=== PATIENT | male | born 1965 | race Caucasian/White ===

== ENCOUNTER 2023-10-23 08:35 | Day surgery (SDC) | payer BC, SELFPAY ==
[2023-10-23] VITALS (7 sets, daily range): BP systolic 118–147; BP diastolic 84–96; PULSE 68–80; RESP 18; O2SAT 97–98; BMI 32.5
[2023-10-23] MEDS: LIDOCAINE 1% 30ML PF VIAL 30 ML (09:40)
[2023-10-23] MEDS: FENTANYL 100MCG/2ML VIAL 100 MCG (09:40)
[2023-10-23] MEDS: CLINDAMYCIN PHOSPHATE/D5W 900 MG/50 ML PIGGYBACK 50 MG IV (09:41)
[2023-10-23] MEDS: diphenhydrAMINE 25MG CAPSULE 25 MG PO (09:57)
--- NOTE | 2023-10-23 11:00 | PC.NURSE ---
PT AMBULATED TO BATHROOM. PAIN IS 0.
--- NOTE | 2023-10-23 13:19 | P.PCN_ITS ---
[facility] Procedure Note Date: 10/23/23
--- NOTE | 2023-10-23 13:19 | HMH.PROCNOTE ---
[facility] Procedure Note Date: 10/23/23
--- NOTE | 2023-10-23 13:19 | EXP.PAIN.PRO ---
Procedure Date: 10/23/23 Time: 13:19 Anesthesiologist:: Paulie Dick MD Complications:: None Pre-procedure Diagnosis:: Postlaminectomy syndrome lumbar spine with lumbar radiculopathy symptoms Post-procedure Diagnosis:: Same Indications for Procedure:: This patient is a pleasant 58-year-old white male who we are treating for postlaminectomy syndrome lumbar spine with lumbar radiculopathy symptoms. He has failed all previous conservative treatments including injections, oral medications, physical therapy and is not a candidate for further surgery. He has failed previous surgery with fusion of the L4-L5 vertebral bodies. He has had a successful psychological evaluation. He presents for intrathecal pump trial today. Procedure Details:: Pain pump trial Informed consent was obtained and the risk and benefits of the procedure was explained to the patient. The patient was taken to the procedure room and placed prone on the procedure table. Patient was prepped and draped in sterile fashion. C-arm fluoroscopy was used to view the lumbar spine. The skin and subcutaneous tissues were anesthetized using lidocaine. I placed a 18-gauge spinal needle into the L4-5 interspace and advanced until clear CSF was obtained. After this intrathecal catheter was inserted and advanced very easily to the L1 vertebral body. The needle was withdrawn. We were able to freely withdraw clear CSF through the catheter. We then injected intrathecal opioid single shot bolus of 25 mcg followed by saline and followed by the previous CSF that was withdrawn. The needle and catheter were then removed and a Band-Aid was placed. Patient tolerated the procedure well with no complications. We reevaluated the patient after 30 minutes to 1 hour. He was also reassessed by physical therapy. Patient had 80 to 90% relief in pain symptoms. He was much more ambulatory. He did not have any pain down his legs. He was walking better and standing longer. By all indications this did seem to be a successful intrathecal pump trial. Plan and Disposition:: Will follow-up with him in 2 weeks. Will reevaluate efficacy of this trial. If successful we will plan on permanent placement with intrathecal morphine 1 mg/mL to start at 150 mcg/day. Catheter tip will be at the T8 vertebral body. Catheter entry will be at L2-L3.
== END 2023-10-23 11:00 | disposition home or self-care (01) ==
LOC: SC.PAINP 08:39
PROVIDERS: PCP Nurse Practitioner Family; Visit Provider Anesthesiology
DX: M96.1 Postlaminectomy syndrome, not elsewhere classified (principal); M54.16 Radiculopathy, lumbar region
CPT/HCPCS: 62323

== ENCOUNTER → 2023-11-05 09:50 | Outpatient (POV) | payer BC, SELFPAY ==
--- OUTSIDE RECORDS SUMMARY | 2023-11-05 09:55 | XMS_ITS | Continuity of Care Document ---
Author Name Unknown Organization [facility] Address [address] [place] [address] Phone Care Team Providers Care Construction Mgr Name Role Phone Walter Medeiros MD Unavailable Unavailabl e Allergies, Adverse Reactions, Alerts Substance Reaction Status Criticality meloxicam Active No Information Medications Medication Instructions Dosage Effective Dates (start - stop) Status Comments hydrocodone 5 mg-acetaminophen 325 mg tablet bid prn - Active Take 1 tablet bid. Must last 30 days-Do not fill before 06/07/15 citalopram 20 mg tablet - Active Procedures Procedure Date Njx interlaminar lmbr/sac Methylprednisolone 40 MG inj LOCM 300-399MG/ML IODINE,1ML Inject nerve block,vert sympathetic Methylprednisolone 40 MG inj LOCM 300-399MG/ML IODINE,1ML Inject nerve block,vert sympathetic Methylprednisolone 40 MG inj LOCM 300-399MG/ML IODINE,1ML Office/outpatient visit,est, mod 2018 Inject nerve block,vert sympathetic Methylprednisolone 40 MG inj LOCM 300-399MG/ML IODINE,1ML Inject nerve block,vert sympathetic Methylprednisolone 40 MG inj Inject nerve block,vert sympathetic Methylprednisolone 40 MG inj LOCM 300-399MG/ML IODINE,1ML Inject nerve block,vert sympathetic Methylprednisolone 40 MG inj LOCM 300-399MG/ML IODINE,1ML Office/outpatient visit,est, mod 2016 Inject nerve block,vert sympathetic Methylprednisolone 40 MG inj LOCM 300-399MG/ML IODINE,1ML Office/outpatient visit,est, mod 2016 Inject nerve block,vert sympathetic Methylprednisolone 40 MG inj LOCM 300-399MG/ML IODINE,1ML Office/outpatient visit,est, mod 2016 Inject nerve block,vert sympathetic Methylprednisolone 40 MG inj LOCM 300-399MG/ML IODINE,1ML Office/outpatient visit,est, mod 2015 Inject nerve block,vert sympathetic Methylprednisolone 40 MG inj LOCM 300-399MG/ML IODINE,1ML Office/outpatient visit,est, mod 2015 Inject nerve block,vert sympathetic Methylprednisolone 40 MG inj LOCM 300-399MG/ML IODINE,1ML Office/outpatient visit,est, mod 2015 Inject nerve block,vert sympathetic Methylprednisolone 40 MG inj LOCM 300-399MG/ML IODINE,1ML Inject nerve block,vert sympathetic Methylprednisolone 40 MG inj LOCM 300-399MG/ML IODINE,1ML DRUG SCREEN NON TLC DEVICES Inject nerve block,vert sympathetic Methylprednisolone 40 MG inj LOCM 300-399MG/ML IODINE,1ML Destroy w/neurlytc oth periphrl nrv Methylprednisolone 40 MG inj Inject nerve block,vert sympathetic Methylprednisolone 40 MG inj LOCM 300-399MG/ML IODINE,1ML Office/outpatient visit,est, mod 2013 Inject nerve block,vert sympathetic Methylprednisolone 40 MG inj LOCM 300-399MG/ML IODINE,1ML Office/outpatient visit,est, mod 2012 Advance Directives Directive Yes / No Effective Date File Name No Information Encounters Encounter Description Practice Location Reason(s) For Visit Diagnoses Date Provider Providers Copied on Encounter [facility], [facility] [place], [place], [facility], tel:[phone] [facility] No Information -202 0 Waldemar Walter. [address] [place], [place], [id number], [place]. tel:[phone] [facility], [address] [place] [address], [facility], tel:[phone] [facility] No Information 3 0 Waldemar Walter. [address], [place], [id number], [place]. tel:[phone] [facility], [facility] [place], [facility], [place] tel:[phone] [facility] Complex regional pain syndrome I of right lower limb 4-201 9 Waldemar Walter. [address], [place], [id number], [place]. tel:[phone] [facility], [address] [place] [address], [facility], [place] tel:[phone] [facility] No Information 0 6-201 9 Waldemar Walter. [address] [place], [place], [id number], [place]. tel:[phone] Office/outpa tient visit,est, mod [facility], [facility] [place], [facility], tel:[phone] [facility] No Information 2-201 9 Waldemar Walter. [address], [place], [id number], [place]. tel:[phone] [facility], [facility] [place], [facility], tel:[phone] [facility] No Information 8 Kruer Zay. [address] [place], [address], [place]. tel:[phone] [facility] [place] [address] [place], [place], [facility], [place] tel:[phone] [facility] No Information 8 Kruer Zay. [address] [place], [address], [place]. tel:[phone] [facility] [place] [address] [place], [place], [facility], tel:[phone] [facility] No Information 7 Kruer Zay. [address] [place], [address], [place]. tel:[phone] [facility] [address], [facility], [place] tel:[phone] [facility] No Information 7 Kruer Zay. [address] [place], [address], [place]. tel:[phone] Office/outpa tient visit,est, mod [facility] [address], [facility], [place] tel:[phone] [facility] No Information 7 Kruer Zay. [address] [place], [address], [place]. tel:[phone] [facility] [place] [address] [place], [place], [facility], [place] tel:[phone] [facility] No Information 7 Kruer Zay. [address] [place], [address], [place]. tel:[phone] Office/outpa tient visit,est, mod [facility], [facility] [address] [place], [place], [facility], tel:[phone] [facility] No Information 8-201 7 Kruer Zay. [address] [place], [address], [place]. tel:[phone] [facility], [facility] [place], [facility], tel:[phone] [facility] No Information 6-201 7 Kruer Zay. [address] [place], [address], [place]. tel:[phone] Office/outpa tient visit,est, mod [facility], [facility] [place], [facility], tel:[phone] [facility] No Information 6 7 Kruer Zay. [address] [place], [address], [place]. tel:[phone] [facility], [address] [place] [address], [facility], tel:[phone] [facility] No Information 7-201 6 Kruer Zay. [address] [place], [place], [facility], [place]. tel:[phone] Office/outpa tient visit,est, mod [facility], [facility] [place], [facility], tel:[phone] [facility] No Information 1- 6 Kruer Zay. [address] [place], [address], [place]. tel:[phone] [facility], [facility] [place], [facility], tel:[phone] [facility] No Information 2-201 6 Kruer Zay. [address] [place], [place], [facility], [place]. tel:[phone] Office/outpa tient visit,est, mod [facility], [facility] [place], [facility], tel:[phone] [facility] No Information January-0 2-201 6 Kruer Zay. [address] [place], [place], [facility], . tel:[phone] [facility] [address], [facility], tel:[phone] [facility] No Information 0 1-201 6 Kruer Zay. [address] [place], [place], [facility], . tel:[phone] Office/outpa tient visit,est, mod [facility], [address] [place] [address], [facility], tel:[phone] [facility] Complex regional pain syndrome I of left lower limb 3-201 6 Kruer Zay. [address] [place], [place], [facility], . tel:[phone] [facility], [address] [place] [address], [facility], tel:[phone] [address] [place] [address] No Information 8-201 5 Kruer Zay. [address] [place], [place], [facility], [place]. tel:[phone] [facility], [address] [place] [address], [facility], tel:[phone] [address] [place] [address] No Information Paras-0 8-201 5 Kruer Zay. [address] [place], [place], [facility], [place]. tel:[phone] [facility], [facility] [place], [facility], tel:[phone] 700 [facility] No Information Nov-0 9-201 5 Kruer Zay. [address] [place], [facility], . tel:[phone] [facility] [address], [address] [place] [address] tel:[phone] [facility] No Information Aug-0 9-201 4 Kruer Zay. [address] [place], [facility], . tel:[phone] [facility] [address], [facility], tel:[phone] [facility] No Information 4-201 4 Kruer Zay. [facility] [place] [place], [facility], . tel:[phone] Office/outpa tient visit,est, mod [facility] [address], [facility], tel:[phone] [facility] RSD (chief complaint) No Information Feb-0 2-201 4 Kruer Zay. [facility] [place], [facility], [place]. tel:[phone] Referring Provider: Annabelle Varela, [facility] [place], [place], [facility]. tel:[phone] [facility] [address], [address] [place] [address] tel:[phone] [address] [place] [address] back pain (chief complaint) No Information Nov-0 3-201 4 Kruer Zay. [facility] [place] [place], [facility], [place]. tel:[phone] Office/outpa tient visit,est, mod [facility], [facility], tel:[phone] [address] [place] [address] RFLX SYM DYSTRPH LWR LMB Nov- 7201 3 Kruer Zay. [address] [place], [place] [address], [facility], . tel:[phone] Family History Family Member Type Diagnosis Age At Onset Problem (finding) Family history of Diabe cass mellitus Problem (finding) Family history of Cance r Problem (finding) Family history of epile psy Problem (finding) Family history of Thyro id disorder Problem (finding) Family history of hyper tension Payers Payer name Insurance type Covered alliance party ID Authoriza tion(s) No Information Social History Type Description Quantity Date Captured Comments Sex Male Smoking Status No Information Chief Complaint And Reason For Visit No Information Reason For Referral Reason For Referral No Information History Of Present Illness Encounter Date Complaint History Of Prese nt Illness No Information Functional Status Date Functional Assessmen t No Information Instructions Date Instruction Additional Infor mation No Information Assessments Type Assessment Date No Information Patient Care Teams Name Effective Dates (start - stop) Status Members No Information
--- NOTE | 2023-11-05 10:28 | EXP.PAIN.SOA ---
[facility] Pain Management SOAP Note Subjective:: Patient is a pleasant 58-year-old male who presents today for follow-up of his intrathecal pain pump trial on 10/23/2023. We are currently treating the patient for degenerative disc disease of lumbar spine with lumbar radiculopathy symptoms, lumbar postlaminectomy syndrome. Today he rates his pain a 8 out of 10. Patient denies any new trauma or injury. He does state that he had 90 to 100% relief following the pump trial lasting upwards of 7 hours. He states during that time he was able to increase his activity with decreased pain symptoms and felt overall more functional. He states that the pump Even helped with his knee pain and neuropathy symptoms into his feet. Patient states that he has not felt that good in years and he did feel like he had better quality of life. Patient would like to proceed forward with the intrathecal implant. Patient has tried and failed conservative therapy such as oral medication, heat and ice, topicals, physical therapy, current chiropractor therapy. Patient is currently managed with tramadol 50 mg 6 times a day and gabapentin 600 mg 3 times a day from outside providers. His Jesus has been reviewed and is appropriate. Review of Systems: General: No recent weight changes, no fever, no sleep disturbances Respiratory: No cough, no shortness of air, no recurring pulmonary infections Cardiovascular/peripheral vascular: No chest pain, no palpitations, no edema, no shortness of breath Gastrointestinal: No new onset incontinence, normal bowel movements reported Genitourinary: No new onset incontinence Musculoskeletal: Low back pain Psychiatric: [Normal mood/affect] Neurological: [Denies weakness in extremities], [denies balance issues] Objective:: Physical Exam: General: Alert and oriented x3, no acute distress, pleasant and cooperative Lungs: Respirations even and unlabored, symmetrical chest expansion Eyes: PERRL Musculoskeletal: Flexion and extension of lumbar [spine] somewhat guarded secondary to pain, [antalgic gait noted] Neurological: Speech clear, no gross sensory deficit Assessment:: Degenerative disc disease of lumbar spine with lumbar radiculopathy symptoms, lumbar postlaminectomy, chronic pain syndrome Plan:: Patient had a very successful intrathecal pain pump trial with 90 to 100% relief. I have discussed with the patient the risk and benefits of the intrathecal pump implant procedure and he would like to proceed forward with this plan of care. Patient is not on any blood thinners. Patient has tried and failed conservative therapy. Patient will be scheduled for the intrathecal pain pump implant and will be given specific date and time once we have official insurance approval. Patient has been instructed to contact the clinic with any concerns before the next appointment. Dr. Dick has reviewed this note and agrees with this plan of care. This note was dictated using voice recognition software and make contain errors or omissions. [facility] Disclaimer: The information contained in this section may have been updated after the patient was seen, as this information can be updated by other users. Medical History Aneurysmal dilatation Anxiety CHF (congestive heart failure) Depression GERD (gastroesophageal reflux disease) History of left heart catheterization History of varicose veins HLD (hyperlipidemia) HTN (hypertension) Kidney stones Osteoarthritis Pulmonary nodule Surgical History H/O lithotripsy H/O shoulder surgery H/O vasectomy History of bilateral knee replacement History of lumbar spinal fusion Hx of cholecystectomy Family History Father Family history of cancer Other Diabetes Hypertension Social History (Updated 10/23/23 @ 09:16 by Lacy Raphael RN) Smoking Status: Former smoker alcohol intake: never current occupational status: other Travel in the last 8 weeks: None
[2023-11-05 12:29] VITALS: BP 166/94; PULSE 85; RESP 18; O2SAT 98; BMI 32.5
== END ==
LOC: SC.PAIN 09:52
PROVIDERS: PCP Nurse Practitioner Family; Visit Provider Nurse Practitioner Family
DX: M51.16 Intervertebral disc disorders with radiculopathy, lumbar region (principal); M96.1 Postlaminectomy syndrome, not elsewhere classified; G89.4 Chronic pain syndrome
CPT/HCPCS: 99212; G0463

== ENCOUNTER 2023-11-20 07:44 | Day surgery (SDC) | payer BC, SELFPAY ==
[2023-11-17 13:35] VITALS: BMI 31.8
[2023-11-20 08:06] VITALS: BP 117/68; PULSE 86; RESP 18; TEMP 36.2; O2SAT 97
[2023-11-20] MEDS: LACTATED RINGERS 1000ML 1,000 ML 25 ML IV (08:13)
[2023-11-20 08:23] LABS: Basophils # 0.1 K/mm3 (0-0.2); Basophils % 1.1 % (0.1-2.0); Eosinophils # 0.3 K/mm3 (0.0-0.4); Hematocrit 42.4 % (42.0-52.0); Hemoglobin 14.1 g/dL (14.1-18.0); Lymphocytes # 2.4 K/mm3 (0.7-4.5); Mean Corpuscular HGB Conc 33.3 g/dL (31.8-35.4); Mean Corpuscular Hemoglobin 30.5 pg (27.0-31.2); Mean Corpuscular Volume 91.7 fl (80-94); Mean Platelet Volume 8.1 fl (7.4-10.4); Monocytes # 0.7 K/mm3 (0.1-1.0); Monocytes % 8.3 % (1.7-9.3); Neutrophils # 5.2 K/mm3 (1.8-7.8); Neutrophils % 59.5 % (37.0-80.0); Platelet Count 254 K/mm3 (142-424); Red Blood Count 4.62 M/mm3 (4.60-6.20); Red Cell Distribution Width 13.9 % (11.5-17.5); White Blood Count 8.7 K/mm3 (4.8-10.8)
[2023-11-20 08:27] LABS: Anion Gap 15.2 mEq/L (5-15); Blood Urea Nitrogen 25 mg/dl (9-20); Calcium 9.4 mg/dl (8.4-10.2); Carbon Dioxide 21 mmol/L (22.0-30.0); Chloride 108 mmol/L (98-107); Creatinine Clearance Estimated 102 mL/min (50-200); Estimated Glomerular Filt Rate 62 ml/min (>60); GFR (African American) 76 ML/MIN (>60); Glucose 115 mg/dl (74-100); Potassium 4.2 mmoL/L (3.5-5.1); Sodium 140 mmol/L (136-145)
[2023-11-20 09:16] LABS: Barbiturates Screen,Urine Negative ng/ml (<200)
[2023-11-20 09:17] LABS: Amphetamine/Metha Screen,Urine Negative ng/ml (<1000); Benzodiazepines Screen,Urine Negative ng/ml (<200)
[2023-11-20 09:18] LABS: Methadone Screen,Urine Negative ng/ml (<300)
[2023-11-20 09:19] LABS: Cannabinoid Screen,Urine Negative ng/ml (<50); Cocaine Screen,Urine Negative ng/ml (<300)
[2023-11-20 09:20] LABS: Opiate Screen,Urine Negative ng/ml (<300)
[2023-11-20 09:21] LABS: Phencyclidine Screen,Urine Negative ng/ml (<25)
[2023-11-20] MEDS: VANCOMYCIN HCL 2,250 MG in 0.9 % SODIUM CHLORIDE 250 ML 125 MG IV (09:27)
--- NOTE | 2023-11-20 09:49 | EXP.ANES.CKL ---
[facility] Disclaimer: The information contained in this section may have been updated after the patient was seen, as this information can be updated by other users. Medical History History of varicose veins History of left heart catheterization Pulmonary nodule Aneurysmal dilatation Kidney stones Anxiety HLD (hyperlipidemia) GERD (gastroesophageal reflux disease) Depression CHF (congestive heart failure) Osteoarthritis HTN (hypertension) Surgical History H/O vasectomy H/O shoulder surgery H/O lithotripsy Hx of cholecystectomy History of bilateral knee replacement History of lumbar spinal fusion Family History Father Family history of cancer Other Diabetes Hypertension Social History Smoking Status: Former smoker alcohol intake: never substance use type: denies use current occupational status: employed Travel in the last 8 weeks: None [facility] Anesthesia Checklist Patient Identification Patient Identification: Arm Band, Family and Verbal (Name & ) Structural Data Admitted From: Home Planned Operative Procedure/s: Pain pump placement Consent for Planned Operative Procedure(s) Verified: Yes Verified Documents: Surgical Consent and History and Physical NPO Status Verified Time NPO: 00:15 Chart Verification Results Verified: CBC and BMP Additional verifications Patient : No Anesthesia Reactions: Yes (n/v) Hx Blood Transfusions: No Blood Transfusion Reaction: No Cardiovascular Assessment Heart Sounds: S1 & S2 Pulse Rhythm: Irregular Peripheral Edema: No Airway Assessment Mallampati Score:: Class III (Very small mouth opening) C-Spine Mobility Assessed: Yes (FROM) TMJ Mobility Assessed: Yes Dentition: Good Dentition (Nothing loose per pt.) Neurological Assessment Level of Consciousness: Awake, Alert, Appropriate and Follows Commands Hx Seizures: No Numbness or tingling in extremities: Yes (BART LE) Anesthesia Plan Anesthesia Risk discussed: Yes Anesthesia Plan: Verified ASA Class: III Anesthesia Type: MAC
[2023-11-20] MEDS: SODIUM CHLORIDE 0.9% 20ML VIAL 20 ML IV (11:39)
[2023-11-20] MEDS: LIDOCAINE 1% W/EPI 1:100,000 20ML VIAL 40 ML (11:39)
[2023-11-20] MEDS: GENTAMICIN 80 MG/2 ML VIAL (11:39)
[2023-11-20 12:15] VITALS: BP 123/70; PULSE 70; RESP 18; TEMP 36.4; O2SAT 97
[2023-11-20 12:23] VITALS: BP 123/60; PULSE 78; RESP 16; TEMP 36.4; O2SAT 97
--- NOTE | 2023-11-20 12:23 | P.PNANES_ITS ---
[facility] Anesthesia Record Part I Anesthesia Record I Intake, IV Amount: 900 Hydration: Adequate Estimated blood loss (mL): 25 Urine output (mL): 0 Blood Products used (#): none Blood Pressure: 123/60 SaO2: 97 Pulse Rate: 78 Airway Patency: Patent Respiratory Rate: 16 Temperature: 97.5 F Patient is:: Awake and Stable Stable to PACU at:: 12:20
[2023-11-20 12:25] VITALS: BP 110/71; PULSE 75; RESP 18; O2SAT 98
[2023-11-20 12:35] VITALS: BP 134/71; PULSE 76; RESP 18; O2SAT 97
[2023-11-20 12:45] VITALS: BP 132/70; PULSE 72; RESP 16; O2SAT 97
--- NOTE | 2023-11-20 13:17 | P.OP_ITS ---
Date of procedure: 11/20/23 Pre-op Diagnosis:: Postlaminectomy syndrome lumbar spine with lumbar radiculopathy symptoms Post-op Diagnosis:: Same Procedure performed:: Permanent placement intrathecal pain pump with tunneled intrathecal catheter and pain pump generator placement Surgeon:: Paulie Dick MD INFORMATION TECHNOLOGY ADMINISTRATOR:: Other Anesthesia: MAC Estimated blood loss (mL): 5 Clinical Note:: Patient is a pleasant 58-year-old white male who we have been treating for low back pain with lumbar radicular symptoms. He has failed all previous conservative treatments including injections, oral medications, physical therapy, previous surgery and he is not a candidate for any further surgery. He had a successful psychological evaluation and a successful intrathecal pump trial. He presents for permanent placement of his intrathecal pain pump today. Operative findings:: None Operative note:: Informed consent was obtained risk and benefits of the procedure were explained to the patient. Patient was taken the operating room placed prone on the procedure table. He was prepped and draped in sterile fashion. C-arm fluoroscopy was used to view the right flank. [place] between the 12th rib and iliac crest the skin and subcutaneous tissues were anesthetized using lidocaine. I made incision dissected out the pump pocket. C-arm fluoroscopy was then used to view the lumbar spine at L4-5 and L5-S1. The skin and subcutaneous tissues adjacent to L4-5 and L5-S1 were anesthetized using lidocaine. I made an incision dissected down to the lumbar paraspinous fascia. A 17-gauge spinal needle was inserted and advanced into the L4-5 interspace until clear CSF was obtained. After this intrathecal catheter was inserted and advanced very easily to the T8 vertebral body. Catheter was in good position it was midline and posterior. The stylette of the catheter and the needle withdrawn. The catheter was secured to the fascia with anchor device and 2-0 Prolene. I filled the pump with 20 mL of intrathecal morphine 1 mg/mL. I tunneled the catheter from the back to the pump pocket and attached catheter to the pump. We are able to freely withdraw clear CSF through the sideport. The pump was then placed in the pocket. Both incisions were then closed with 2-0 Vicryl followed by 4-0 nylon and subcutaneous mendez. Patient was placed in an abdominal binder taken recovery in stable condition. The patient tolerated the procedure well with no complications. Pump was interrogated and started at 0.1 mg/day of intrathecal morphine. Patient was discharged home neurologic intact with good relief of pain symptoms. Plan and disposition: We will follow-up with this patient in 1 week for reprogramming and wound check. Will follow-up in 2 to 3 weeks for suture removal. Condition: stable Disposition: PACU Complications:: None
== END 2023-11-20 13:00 | disposition home or self-care (01) ==
PROVIDERS: PCP Nurse Practitioner Family; Visit Provider Anesthesiology
PROC: (CPT 62350; principal; 2023-11-20 09:30)
DX: M96.1 Postlaminectomy syndrome, not elsewhere classified (principal); M54.16 Radiculopathy, lumbar region
CPT/HCPCS: 62350; 62362; 80048; 80307; 85025; 96374; C1755; C1772; J3370

== ENCOUNTER 2023-11-26 13:55 | Outpatient (POV) | payer BC, SELFPAY ==
--- NOTE | 2023-11-26 14:27 | EXP.PAIN.SOA ---
[facility] Pain Management SOAP Note Subjective:: Patient is a pleasant 58-year-old male who presents today for 1 week postop of intrathecal pain pump placement on 11/20/2023. Patient rates his pain today 0 out of 10. He denies any problems following this procedure and states that he is doing great and has had significant improvement with minimal pain. He states he has been walking over a mile daily and is very pleased with how this is done. Patient is currently managed with morphine 1 mg/mL with a daily dose of 0.1 mg/day. He denies any Side effects from this medication. His Jesus has been reviewed and is appropriate. Review of Systems: General: No recent weight changes, no fever, no sleep disturbances Respiratory: No cough, no shortness of air, no recurring pulmonary infections Cardiovascular/peripheral vascular: No chest pain, no palpitations, no edema, no shortness of breath Gastrointestinal: No new onset incontinence, normal bowel movements reported Genitourinary: No new onset incontinence Musculoskeletal: Low back pain Psychiatric: [Normal mood/affect] Neurological: [Denies weakness in extremities], [denies balance issues] Objective:: Physical Exam: General: Alert and oriented x3, no acute distress, pleasant and cooperative Lungs: Respirations even and unlabored, symmetrical chest expansion Eyes: PERRL Musculoskeletal: Flexion and extension of lumbar [spine] somewhat guarded secondary to pain Neurological: Speech clear, no gross sensory deficit Skin: Incision sites clean, dry, well-approximated with sutures intact and minimal erythema noted Assessment:: Degenerative disc disease of lumbar spine with lumbar radiculopathy symptoms, lumbar postlaminectomy syndrome Plan:: Patient is doing well and does not require any additional adjustment at this visit. His incision is clean, dry, well-approximated with minimal erythema noted. I have counseled the patient that we will plan on having him back next week to remove his sutures. Patient has been counseled to continue his postop restrictions for full 6 weeks. Patient will return to clinic in 1 week for reevaluation of symptoms and plan of care. Patient has been instructed to contact the clinic with any concerns before the next appointment. Dr. Dick has reviewed this note and agrees with this plan of care. This note was dictated using voice recognition software and make contain errors or omissions. -- It Is medically necessary for this patient to continue to have their intrathecal pump refilled at regular intervals. This patient had an intrathecal pain pump implanted after meeting criteria of chronic intractable pain for greater than 3 months and failing conservative treatments. Patient has committed and been compliant to the treatment plan and all planned follow up care. Since implantation of the intrathecal pain pump, the patient has had decreased pain and been more functional. Oral medications have been reduced including intake of oral opioids. Patient continues to do well with intrathecal therapy with decrease in pain symptoms and increase in functional status. Stopping intrathecal medications can lead to life threatening withdrawal, seizures, cardiac arrest, severe pain, and possible . Pumps that are not refilled at regular intervals can be damages and cause and need for replacement. We continually titrate dose and concentration to optimize pain relief and function. We are limited in concentration for certain drugs to safely deliver medications through the pump and stay within the recommendations from the Polyanalgesic Consensus Committee Guidelines. Depending on dose and concentration these pumps may need to be refilled sooner than 3 months as we titrate. [facility] Disclaimer: The information contained in this section may have been updated after the patient was seen, as this information can be updated by other users. Medical History History of varicose veins History of left heart catheterization Pulmonary nodule Aneurysmal dilatation Kidney stones Anxiety HLD (hyperlipidemia) GERD (gastroesophageal reflux disease) Depression CHF (congestive heart failure) Osteoarthritis HTN (hypertension) Surgical History H/O vasectomy H/O shoulder surgery H/O lithotripsy Hx of cholecystectomy History of bilateral knee replacement History of lumbar spinal fusion Family History Father Family history of cancer Other Diabetes Hypertension Social History (Updated 11/20/23 @ 09:51 by Jesica Browne CRNA) Smoking Status: Former smoker alcohol intake: never substance use type: denies use current occupational status: other Travel in the last 8 weeks: None
[2023-11-26 14:28] VITALS: BP 139/90; PULSE 75; RESP 20; O2SAT 99; BMI 32.5
== END 2023-11-26 23:59 ==
LOC: SC.PAIN 13:56
PROVIDERS: PCP Nurse Practitioner Family; Visit Provider Nurse Practitioner Family
DX: M51.16 Intervertebral disc disorders with radiculopathy, lumbar region (principal); M96.1 Postlaminectomy syndrome, not elsewhere classified; Z97.8 Presence of other specified devices
CPT/HCPCS: 99212; G0463

== ENCOUNTER 2023-11-27 10:39 | Outpatient (POV) | payer BC, SELFPAY ==
--- NOTE | 2023-11-27 11:10 | EXP.PAIN.PRO ---
Procedure Date: 11/27/23 Time: 11:10 Anesthesiologist:: Laura Bishop APRN Complications:: None Pre-procedure Diagnosis:: Degenerative disc disease of lumbar spine with lumbar radiculopathy symptoms, lumbar postlaminectomy syndrome Post-procedure Diagnosis:: Same Indications for Procedure:: Patient is a pleasant 58-year-old male who presents today for increasing pain. Patient was just seen in our office yesterday and was doing great with a 0 out of 10 pain however today he states is a 10 out of 10. Patient states following her visit yesterday fully did was go home and take a nap in his recliner. He states that he woke up having severe pain all over including his low back and legs and upper body including his shoulders. He states that he thought today may be a little bit better however he woke up and the pain was still there. He is currently managed with morphine 1 mg/mL with a daily dose of 0.1 mg/day. Patient does state he feels like he has noticed increased difficulty to urinate. Patient states that he can still go but what would normally take 30 seconds to initiate and get going takes more like a minute. Patient does state in the past he has been prescribed Flomax for urinary and kidney stone issues. He states he did take 1 tablet 1 day however did not notice improvement. He is requesting an increase in his pump due to his increased pain. His Jesus has been reviewed and is appropriate. Physical Exam: General: Alert and oriented x3, no acute distress, pleasant and cooperative Lungs: Respirations even and unlabored, symmetrical chest expansion Eyes: PERRL Musculoskeletal: Flexion and extension of lumbar [spine] somewhat guarded secondary to pain, [antalgic gait noted] Neurological: Speech clear, no gross sensory deficit Skin: Incision sites clean, dry, well-approximated with minimal erythema noted sutures intact Procedure Details:: Informed consent was obtained and the risk and benefits of the procedure were explained to the patient. Patient was taken to the procedure room where noninvasive monitoring was placed including noninvasive blood pressure cuff and pulse oximeter. Patient's pump was interrogated and was reprogrammed to morphine 0.1151 mg/day. The patient tolerated the procedure well with no complications. Plan and Disposition:: I have reviewed over with the patient his urinary retention issues. I have counseled the patient to increase his fluid intake and to immediately call our office or come to be evaluated by ER if he gets to where he cannot urinate at all. We will send in a 1 week dose of Flomax 0.4 mg daily. Patient does already have a follow-up scheduled for next . I have counseled the patient to pay attention to whether or not if his symptoms worsen between now and next week or if there is no change. We will continue to monitor his symptoms. Patient will return to clinic in 1 week for reevaluation of symptoms and plan of care. Patient has been instructed to contact the clinic with any concerns before the next appointment. Dr. Dick has reviewed this note and agrees with this plan of care. This note was dictated using voice recognition software and make contain errors or omissions. -- It Is medically necessary for this patient to continue to have their intrathecal pump refilled at regular intervals. This patient had an intrathecal pain pump implanted after meeting criteria of chronic intractable pain for greater than 3 months and failing conservative treatments. Patient has committed and been compliant to the treatment plan and all planned follow up care. Since implantation of the intrathecal pain pump, the patient has had decreased pain and been more functional. Oral medications have been reduced including intake of oral opioids. Patient continues to do well with intrathecal therapy with decrease in pain symptoms and increase in functional status. Stopping intrathecal medications can lead to life threatening withdrawal, seizures, cardiac arrest, severe pain, and possible . Pumps that are not refilled at regular intervals can be damages and cause and need for replacement. We continually titrate dose and concentration to optimize pain relief and function. We are limited in concentration for certain drugs to safely deliver medications through the pump and stay within the recommendations from the Polyanalgesic Consensus Committee Guidelines. Depending on dose and concentration these pumps may need to be refilled sooner than 3 months as we titrate.
[2023-11-27 11:36] VITALS: BP 133/77; PULSE 97; RESP 18; O2SAT 97; BMI 32.2
== END 2023-11-27 23:59 | disposition home or self-care (01) ==
PROVIDERS: PCP Nurse Practitioner Family; Visit Provider Nurse Practitioner Family
DX: M51.16 Intervertebral disc disorders with radiculopathy, lumbar region (principal); M96.1 Postlaminectomy syndrome, not elsewhere classified; Z97.8 Presence of other specified devices; Z45.1 Encounter for adjustment and management of infusion pump
CPT/HCPCS: 62368; 99213; G0463

== ENCOUNTER 2023-12-03 08:53 | Outpatient (POV) | payer BC, SELFPAY ==
--- NOTE | 2023-12-03 09:18 | EXP.PAIN.PRO ---
Procedure Date: 12/03/23 Time: 09:19 Anesthesiologist:: Laura Bishop APRN Complications:: None Pre-procedure Diagnosis:: Degenerative disc disease of the lumbar spine with lumbar radiculopathy symptoms Post-procedure Diagnosis:: Same Indications for Procedure:: Patient is a pleasant 58-year-old male who presents today for suture removal and intrathecal adjustment and reprogram. Patient denies any new problems from his surgery date. He does state that his sutures are very bothersome causing severe itching. He does state from our last visit that he did notice some improvement when we increased his pump however he still having some overall increased pain. He states he did go and walk around [facility] and could not really do a whole lot due to the worsening pain. He is currently managed with morphine 1 mg/mL with a daily dose of 0.1151 mg/day. He denies any side effects from this medication. His Jesus has been reviewed and is appropriate. Physical Exam: General: Alert and oriented x3, no acute distress, pleasant and cooperative Lungs: Respirations even and unlabored, symmetrical chest expansion Eyes: PERRL Musculoskeletal: Flexion and extension of lumbar [spine] somewhat guarded secondary to pain, [antalgic gait noted] Neurological: Speech clear, no gross sensory deficit Skin: Incision sites are clean, dry, well-approximated with minimal erythema noted and sutures intact Procedure Details:: Informed consent was obtained and the risk and benefits of the procedure were explained to the patient. Patient was taken to the procedure room where noninvasive monitoring was placed including noninvasive blood pressure cuff and pulse oximeter. Patient's pump was interrogated and was reprogrammed to morphine 0.1264mg/day. The patient tolerated the procedure well with no complications. Plan and Disposition:: Patient did have all of his sutures removed during today's visit. He has been counseled to continue his full 6-week postop restrictions. Patient tolerated his intrathecal increase with no complications and was discharged neurologically intact. Patient was also set up with his PTM device for his boluses that he was given up to 4 in a 24-hour. Patient will return to clinic in 2 weeks for reevaluation of symptoms and plan of care. Patient has been instructed to contact the clinic with any concerns before the next appointment. Dr. Dick has reviewed this note and agrees with this plan of care. This note was dictated using voice recognition software and make contain errors or omissions. -- It Is medically necessary for this patient to continue to have their intrathecal pump refilled at regular intervals. This patient had an intrathecal pain pump implanted after meeting criteria of chronic intractable pain for greater than 3 months and failing conservative treatments. Patient has committed and been compliant to the treatment plan and all planned follow up care. Since implantation of the intrathecal pain pump, the patient has had decreased pain and been more functional. Oral medications have been reduced including intake of oral opioids. Patient continues to do well with intrathecal therapy with decrease in pain symptoms and increase in functional status. Stopping intrathecal medications can lead to life threatening withdrawal, seizures, cardiac arrest, severe pain, and possible . Pumps that are not refilled at regular intervals can be damages and cause and need for replacement. We continually titrate dose and concentration to optimize pain relief and function. We are limited in concentration for certain drugs to safely deliver medications through the pump and stay within the recommendations from the Polyanalgesic Consensus Committee Guidelines. Depending on dose and concentration these pumps may need to be refilled sooner than 3 months as we titrate.
[2023-12-03 14:34] VITALS: BMI 32.2
== END 2023-12-03 23:59 | disposition home or self-care (01) ==
PROVIDERS: PCP Nurse Practitioner Family; Visit Provider Nurse Practitioner Family
DX: M51.16 Intervertebral disc disorders with radiculopathy, lumbar region (principal); Z97.8 Presence of other specified devices; Z45.1 Encounter for adjustment and management of infusion pump
CPT/HCPCS: 62368; 99213; G0463

== ENCOUNTER 2023-12-16 09:05 | Outpatient (POV) | payer BC, SELFPAY ==
[2023-12-16 09:44] VITALS: BP 128/82; PULSE 82; RESP 18; O2SAT 96; BMI 32.5
--- NOTE | 2023-12-16 09:48 | EXP.PAIN.PRO ---
Procedure Date: 12/16/23 Time: 09:48 Anesthesiologist:: Laura Bishop APRN Complications:: None Pre-procedure Diagnosis:: Degenerative disc disease of lumbar spine with lumbar radiculopathy symptoms Post-procedure Diagnosis:: Same Indications for Procedure:: Patient is a pleasant 58-year-old male who presents for intrathecal adjustment and reprogram. He does state from our last intrathecal increase that he did notice some improvement. He states that he still will have some days that are more painful than others. Patient is currently managed with morphine 1 mg/mL with a daily dose of 0.1264 mg/day. He denies any side effects from this medication. His Jesus has been reviewed and is appropriate. Physical Exam: General: Alert and oriented x3, no acute distress, pleasant and cooperative Lungs: Respirations even and unlabored, symmetrical chest expansion Eyes: PERRL Musculoskeletal: Flexion and extension of lumbar [spine] somewhat guarded secondary to pain, [antalgic gait noted] Neurological: Speech clear, no gross sensory deficit Procedure Details:: Informed consent was obtained and the risk and benefits of the procedure were explained to the patient. Patient was taken to the procedure room where noninvasive monitoring was placed including noninvasive blood pressure cuff and pulse oximeter. Patient's pump was interrogated and was reprogrammed to morphine 0.1391 mg/day. The patient tolerated the procedure well with no complications. Plan and Disposition:: Patient tolerated his intrathecal increase with no complications and was discharged neurologically intact. Patient will return to clinic in 2 weeks for possible additional intrathecal adjustment and reprogram. Patient has been instructed to contact the clinic with any concerns before the next appointment. Dr. Dick has reviewed this note and agrees with this plan of care. This note was dictated using voice recognition software and make contain errors or omissions. -- It Is medically necessary for this patient to continue to have their intrathecal pump refilled at regular intervals. This patient had an intrathecal pain pump implanted after meeting criteria of chronic intractable pain for greater than 3 months and failing conservative treatments. Patient has committed and been compliant to the treatment plan and all planned follow up care. Since implantation of the intrathecal pain pump, the patient has had decreased pain and been more functional. Oral medications have been reduced including intake of oral opioids. Patient continues to do well with intrathecal therapy with decrease in pain symptoms and increase in functional status. Stopping intrathecal medications can lead to life threatening withdrawal, seizures, cardiac arrest, severe pain, and possible . Pumps that are not refilled at regular intervals can be damages and cause and need for replacement. We continually titrate dose and concentration to optimize pain relief and function. We are limited in concentration for certain drugs to safely deliver medications through the pump and stay within the recommendations from the Polyanalgesic Consensus Committee Guidelines. Depending on dose and concentration these pumps may need to be refilled sooner than 3 months as we titrate.
== END 2023-12-16 23:59 | disposition home or self-care (01) ==
PROVIDERS: Visit Provider Nurse Practitioner Family
DX: M51.16 Intervertebral disc disorders with radiculopathy, lumbar region (principal); Z97.8 Presence of other specified devices; Z45.1 Encounter for adjustment and management of infusion pump
CPT/HCPCS: 62368; 99213; G0463

== ENCOUNTER 2023-12-30 09:14 | Outpatient (POV) | payer BC, SELFPAY ==
[2023-12-30 09:19] VITALS: BP 137/82; PULSE 79; RESP 18; O2SAT 97; BMI 33.2
--- NOTE | 2023-12-30 09:54 | EXP.PAIN.PRO ---
Procedure Date: 12/30/23 Time: 09:54 Anesthesiologist:: Laura Bishop APRN Complications:: None Pre-procedure Diagnosis:: Degenerative disc disease of lumbar spine with lumbar radiculopathy symptoms Post-procedure Diagnosis:: Same Indications for Procedure:: Patient is a pleasant 58-year-old who presents today for intrathecal adjustment and reprogram. He is currently managed with morphine 1 mg/mL with a daily dose of 0.1 3 9 1 mg/day. He denies any side effects from this medication. He does state that he has been increasing his activity and he is planning on going back to work however he would like an increase in his overall pump settings. He is prescribed gabapentin from an outside provider. His Jesus has been reviewed and is appropriate. Physical Exam: General: Alert and oriented x3, no acute distress, pleasant and cooperative Lungs: Respirations even and unlabored, symmetrical chest expansion Eyes: PERRL Musculoskeletal: Flexion and extension of lumbar [spine] somewhat guarded secondary to pain, [antalgic gait noted] Neurological: Speech clear, no gross sensory deficit Procedure Details:: Informed consent was obtained and the risk and benefits of the procedure were explained to the patient. Patient was taken to the procedure room where noninvasive monitoring was placed including noninvasive blood pressure cuff and pulse oximeter. Patient's pump was interrogated and was reprogrammed to morphine 0.1668 mg/day. The patient tolerated the procedure well with no complications. Plan and Disposition:: Patient tolerated his intrathecal increase with no complications and was discharged neurologically intact. Patient was told that he can return to work. I have counseled the patient that if he has any problems between now and his next visit to contact our office. Patient will return to clinic in 2 weeks for possible readjustment and reprogram. We did increase his boluses to 6/day. Patient has been instructed to contact the clinic with any concerns before the next appointment. Dr. Dick has reviewed this note and agrees with this plan of care. This note was dictated using voice recognition software and make contain errors or omissions. -- It Is medically necessary for this patient to continue to have their intrathecal pump refilled at regular intervals. This patient had an intrathecal pain pump implanted after meeting criteria of chronic intractable pain for greater than 3 months and failing conservative treatments. Patient has committed and been compliant to the treatment plan and all planned follow up care. Since implantation of the intrathecal pain pump, the patient has had decreased pain and been more functional. Oral medications have been reduced including intake of oral opioids. Patient continues to do well with intrathecal therapy with decrease in pain symptoms and increase in functional status. Stopping intrathecal medications can lead to life threatening withdrawal, seizures, cardiac arrest, severe pain, and possible . Pumps that are not refilled at regular intervals can be damages and cause and need for replacement. We continually titrate dose and concentration to optimize pain relief and function. We are limited in concentration for certain drugs to safely deliver medications through the pump and stay within the recommendations from the Polyanalgesic Consensus Committee Guidelines. Depending on dose and concentration these pumps may need to be refilled sooner than 3 months as we titrate.
== END 2023-12-30 23:59 | disposition home or self-care (01) ==
PROVIDERS: PCP Nurse Practitioner Family; Visit Provider Nurse Practitioner Family
DX: M51.16 Intervertebral disc disorders with radiculopathy, lumbar region (principal); Z97.8 Presence of other specified devices; Z45.1 Encounter for adjustment and management of infusion pump
CPT/HCPCS: 62368; 99212; 99213; G0463

== ENCOUNTER 2024-01-14 08:10 | Outpatient (POV) | payer BC, SELFPAY ==
[2024-01-14 08:27] VITALS: BP 139/86; PULSE 82; RESP 18; O2SAT 98; BMI 34.5
--- NOTE | 2024-01-14 09:14 | EXP.PAIN.PRO ---
Procedure Date: 01/14/24 Time: 08:49 Anesthesiologist:: Laura Bishop APRN Complications:: None Pre-procedure Diagnosis:: Degenerative disc disease of lumbar spine with lumbar radiculopathy symptoms, lumbar postlaminectomy syndrome Post-procedure Diagnosis:: Same Indications for Procedure:: Patient is a pleasant 58-year-old male who presents today for intrathecal adjustment and reprogram. Today he rates his pain a 7 out of 10. Patient states that since starting back at work that he has been experiencing worsening pain. Patient does also state from our last visit that he did have extensive swelling in his bilateral lower extremities. He felt like he had at least 15 pounds added on. Patient does state in the past he did have issues with swelling and did have old water pills of Lasix. Patient states he did use these and he felt like he did drop back down to normal. Patient is currently managed with morphine 1 mg/mL with a daily dose of 0.1668 mg/h. Patient is unsure whether or not the swelling has anything to do with the pump or not. His Jesus has been reviewed and is appropriate. Physical Exam: General: Alert and oriented x3, no acute distress, pleasant and cooperative Lungs: Respirations even and unlabored, symmetrical chest expansion Eyes: PERRL Musculoskeletal: Flexion and extension of low back pain [spine] somewhat guarded secondary to pain, [antalgic gait noted] Neurological: Speech clear, no gross sensory deficit Skin: Bilateral legs are within normal limits with no swelling noted Procedure Details:: Informed consent was obtained and the risk and benefits of the procedure were explained to the patient. Patient was taken to the procedure room where noninvasive monitoring was placed including noninvasive blood pressure cuff and pulse oximeter. Patient's pump was interrogated and was reprogrammed to morphine 0.2 mg/day. The patient tolerated the procedure well with no complications. Plan and Disposition:: I have counseled the patient due to his report of swelling even though it is not present at today's visit this may be an indication of a side effect from the pain medication. I did go over the risk and benefits and he still is requesting an increase today due to his worsening pain. I have counseled the patient that I will see him back next week instead of a 2-week visit to confirm that his symptoms have not worsened. I have counseled him to contact our office immediately if he has any additional symptoms or issues such as urinary retention. Patient does state he still has plenty of his old Lasix if needed. I have counseled patient if next week he is still having complaints of swelling we will plan on changing his pump medication to Dilaudid. Patient agrees with this plan of care. Patient has been instructed to contact the clinic with any concerns before the next appointment. Dr. Dick has reviewed this note and agrees with this plan of care. This note was dictated using voice recognition software and make contain errors or omissions. -- It Is medically necessary for this patient to continue to have their intrathecal pump refilled at regular intervals. This patient had an intrathecal pain pump implanted after meeting criteria of chronic intractable pain for greater than 3 months and failing conservative treatments. Patient has committed and been compliant to the treatment plan and all planned follow up care. Since implantation of the intrathecal pain pump, the patient has had decreased pain and been more functional. Oral medications have been reduced including intake of oral opioids. Patient continues to do well with intrathecal therapy with decrease in pain symptoms and increase in functional status. Stopping intrathecal medications can lead to life threatening withdrawal, seizures, cardiac arrest, severe pain, and possible . Pumps that are not refilled at regular intervals can be damages and cause and need for replacement. We continually titrate dose and concentration to optimize pain relief and function. We are limited in concentration for certain drugs to safely deliver medications through the pump and stay within the recommendations from the Polyanalgesic Consensus Committee Guidelines. Depending on dose and concentration these pumps may need to be refilled sooner than 3 months as we titrate.
== END 2024-01-14 23:59 | disposition home or self-care (01) ==
PROVIDERS: PCP Nurse Practitioner Family; Visit Provider Nurse Practitioner Family
DX: M51.16 Intervertebral disc disorders with radiculopathy, lumbar region (principal); M96.1 Postlaminectomy syndrome, not elsewhere classified; Z97.8 Presence of other specified devices; Z45.1 Encounter for adjustment and management of infusion pump
CPT/HCPCS: 62368; 99213; G0463

== ENCOUNTER 2024-01-27 08:19 | Outpatient (POV) | payer BC, SELFPAY ==
[2024-01-27 08:28] VITALS: BP 109/71; PULSE 78; RESP 18; O2SAT 98; BMI 33.9
--- NOTE | 2024-01-27 08:39 | EXP.PAIN.PRO ---
Procedure Date: 01/27/24 Time: 08:39 Anesthesiologist:: Laura Bishop APRN Complications:: None Pre-procedure Diagnosis:: Degenerative disc disease of lumbar spine with lumbar radiculopathy symptoms, lumbar postlaminectomy syndrome Post-procedure Diagnosis:: same Indications for Procedure:: Patient is a pleasant 58-year-old male who presents today for intrathecal adjustment and reprogram. Today he rates his pain a 6 out of 10. Patient denies any new trauma or injury. Patient does state that he is doing well with his medication however when days he goes to work he still continues to have significant pain by the end of the day. He is currently managed with morphine 1 mg/mL with a daily dose of morphine 0.2 mg/day. At his last visit he did state that he was having increased swelling in his legs. Patient states that he never had pain additional symptoms related to this and denies any other problems with this pump medication. He is prescribed gabapentin from an outside provider. His Jesus has been reviewed and is appropriate. Physical Exam: General: Alert and oriented x3, no acute distress, pleasant and cooperative Lungs: Respirations even and unlabored, symmetrical chest expansion Eyes: PERRL Musculoskeletal: Flexion and extension of lumbar [spine] somewhat guarded secondary to pain, [antalgic gait noted] Neurological: Speech clear, no gross sensory deficit Procedure Details:: Informed consent was obtained and the risk and benefits of the procedure were explained to the patient. Patient was taken to the procedure room where noninvasive monitoring was placed including noninvasive blood pressure cuff and pulse oximeter. Patient's pump was interrogated and was reprogrammed to morphine 0.2498 mg/day. The patient tolerated the procedure well with no complications. Plan and Disposition:: Patient tolerated his intrathecal increase with no complications and was discharged neurologically intact. I discussed with the patient to contact our office if he has any side effects or concerns between now and his next appointment. Patient will return to clinic in 1 month for reevaluation of symptoms and plan of care. Patient has been instructed to contact the clinic with any concerns before the next appointment. Dr. Dick has reviewed this note and agrees with this plan of care. This note was dictated using voice recognition software and make contain errors or omissions. -- It Is medically necessary for this patient to continue to have their intrathecal pump refilled at regular intervals. This patient had an intrathecal pain pump implanted after meeting criteria of chronic intractable pain for greater than 3 months and failing conservative treatments. Patient has committed and been compliant to the treatment plan and all planned follow up care. Since implantation of the intrathecal pain pump, the patient has had decreased pain and been more functional. Oral medications have been reduced including intake of oral opioids. Patient continues to do well with intrathecal therapy with decrease in pain symptoms and increase in functional status. Stopping intrathecal medications can lead to life threatening withdrawal, seizures, cardiac arrest, severe pain, and possible . Pumps that are not refilled at regular intervals can be damages and cause and need for replacement. We continually titrate dose and concentration to optimize pain relief and function. We are limited in concentration for certain drugs to safely deliver medications through the pump and stay within the recommendations from the Polyanalgesic Consensus Committee Guidelines. Depending on dose and concentration these pumps may need to be refilled sooner than 3 months as we titrate.
== END 2024-01-27 23:59 | disposition home or self-care (01) ==
PROVIDERS: PCP Nurse Practitioner Family; Visit Provider Nurse Practitioner Family
DX: M51.16 Intervertebral disc disorders with radiculopathy, lumbar region (principal); M96.1 Postlaminectomy syndrome, not elsewhere classified; Z97.8 Presence of other specified devices; Z45.1 Encounter for adjustment and management of infusion pump
CPT/HCPCS: 62368; 99212; G0463

== ENCOUNTER 2024-02-04 09:27 | Outpatient (POV) | payer BC, SELFPAY ==
[2024-02-04 09:52] VITALS: BP 132/92; PULSE 84; RESP 18; O2SAT 97; BMI 35.2
--- NOTE | 2024-02-04 09:58 | EXP.PAIN.SOA ---
[facility] Pain Management SOAP Note Subjective:: Patient is a pleasant 58-year-old male who presents today for follow-up. Today he rates his pain a 4 out of 10. Patient denies any new trauma or injury. He does state from the last pump increase that his pain is doing better and is much more manageable. He does however state that a couple of days ago he did have about 6-7 pounds of fluid in his lower legs. Patient states he is unsure whether or not this is related to his pump medication or prior history of swelling. Patient does also complain of increased stiffness and feels like it may be related to the overall swelling. Patient is currently managed with morphine 1 mg/mL with a daily dose of 0.2516 mg/day. He is managed with gabapentin from an outside provider. His Jesus has been reviewed and is appropriate. Review of Systems: General: No recent weight changes, no fever, no sleep disturbances Respiratory: No cough, no shortness of air, no recurring pulmonary infections Cardiovascular/peripheral vascular: No chest pain, no palpitations, no edema, no shortness of breath Gastrointestinal: No new onset incontinence, normal bowel movements reported Genitourinary: No new onset incontinence Musculoskeletal: Low back pain Psychiatric: [Normal mood/affect] Neurological: [Denies weakness in extremities], [denies balance issues] Objective:: Physical Exam: General: Alert and oriented x3, no acute distress, pleasant and cooperative Lungs: Respirations even and unlabored, symmetrical chest expansion Eyes: PERRL Musculoskeletal: Flexion and extension of lumbar [spine] somewhat guarded secondary to pain, [antalgic gait noted] Neurological: Speech clear, no gross sensory deficit Assessment:: Degenerative disc disease of lumbar spine with lumbar radiculopathy symptoms, lumbar postlaminectomy syndrome Plan:: Due to the patient's continued occasional swelling in his lower extremities I discussed with the patient that we will switch over his pump medications. We will contact [facility] and have them overnight Dilaudid 1 mg/mL with a daily dose of 0.1 mg/day. We will plan on still doing his next refill next Thursday however if we have any issues with getting the new medication by then we will reach out to the patient. Patient acknowledges understanding and agrees with plan of care. We will see the patient back in the clinic at the next intrathecal refill. Patient has been instructed to contact the clinic with any concerns before the next appointment. Dr. Dick has reviewed this note and agrees with this plan of care. This note was dictated using voice recognition software and make contain errors or omissions. -- It Is medically necessary for this patient to continue to have their intrathecal pump refilled at regular intervals. This patient had an intrathecal pain pump implanted after meeting criteria of chronic intractable pain for greater than 3 months and failing conservative treatments. Patient has committed and been compliant to the treatment plan and all planned follow up care. Since implantation of the intrathecal pain pump, the patient has had decreased pain and been more functional. Oral medications have been reduced including intake of oral opioids. Patient continues to do well with intrathecal therapy with decrease in pain symptoms and increase in functional status. Stopping intrathecal medications can lead to life threatening withdrawal, seizures, cardiac arrest, severe pain, and possible . Pumps that are not refilled at regular intervals can be damages and cause and need for replacement. We continually titrate dose and concentration to optimize pain relief and function. We are limited in concentration for certain drugs to safely deliver medications through the pump and stay within the recommendations from the Polyanalgesic Consensus Committee Guidelines. Depending on dose and concentration these pumps may need to be refilled sooner than 3 months as we titrate. [facility] Disclaimer: The information contained in this section may have been updated after the patient was seen, as this information can be updated by other users. Medical History History of varicose veins History of left heart catheterization Pulmonary nodule Aneurysmal dilatation Kidney stones Anxiety HLD (hyperlipidemia) GERD (gastroesophageal reflux disease) Depression CHF (congestive heart failure) Osteoarthritis HTN (hypertension) Surgical History H/O vasectomy H/O shoulder surgery H/O lithotripsy Hx of cholecystectomy History of bilateral knee replacement History of lumbar spinal fusion Family History Father Family history of cancer Other Diabetes Hypertension Social History Smoking Status: Former smoker alcohol intake: never substance use type: denies use current occupational status: employed Travel in the last 8 weeks: None
== END 2024-02-04 23:59 | disposition home or self-care (01) ==
LOC: SC.PAIN 09:27
PROVIDERS: PCP Nurse Practitioner Family; Visit Provider Nurse Practitioner Family
DX: M51.16 Intervertebral disc disorders with radiculopathy, lumbar region (principal); M96.1 Postlaminectomy syndrome, not elsewhere classified; Z97.8 Presence of other specified devices
CPT/HCPCS: 99212; G0463

== ENCOUNTER 2024-02-09 10:33 | Day surgery (SDC) | payer BC, SELFPAY ==
[2024-02-09 10:49] VITALS: BP 134/87; PULSE 70; RESP 18; TEMP 36.5; O2SAT 98; BMI 34.3
[2024-02-09 11:08] VITALS: BP 125/79; PULSE 66; RESP 18; TEMP 36.8; O2SAT 98
[2024-02-09 11:12] VITALS: BP 123/82; PULSE 68; RESP 18; O2SAT 97
[2024-02-09 11:13] VITALS: BP 123/82; PULSE 68; RESP 18; O2SAT 97
--- NOTE | 2024-02-09 11:19 | EXP.PAIN.PRO ---
Procedure Date: 02/09/24 Time: 11:00 Anesthesiologist:: Deni Patterson CRNA Complications:: None Pre-procedure Diagnosis:: Degenerative disc lumbar spine multilevels. Lumbar radiculopathy. Lumbar postlaminectomy syndrome. Post-procedure Diagnosis:: Same. Indications for Procedure:: Patient is a very pleasant 58-year-old male comes our clinic today for intrathecal pain pump interrogation refill. Patient currently being managed with morphine sulfate 1 mg/mL at a daily dose of 0.2 mg/day. Today he will have the medication exchange. We will remove morphine from the intrathecal pain pump. Intrathecal pain pump will be filled with hydromorphone 1 mg/mL. At a daily dose of 0.1 mg/day. Procedure Details:: Details of the procedure explained to the patient. The patient taken to procedure room placed in sitting position. The area of the pump was cleansed using chlorhexidine's cleansing solution. The pump was interrogated. The pump was accessed with ease using a 21-gauge inch and half needle. 5 mL solution was withdrawn discarded appropriately. The pump was then filled with 20 cc of solution containing hydromorphone 1 mg/mL. The rate will begin at 0.1 mg/day. Patient tolerated procedure without difficulty. There are no complications. Plan and Disposition:: Patient was discharged without incident.
== END 2024-02-09 11:10 | disposition home or self-care (01) ==
PROVIDERS: PCP Nurse Practitioner Family; Visit Provider Nurse Anesthetist, Certified Registered
DX: M51.16 Intervertebral disc disorders with radiculopathy, lumbar region (principal); M96.1 Postlaminectomy syndrome, not elsewhere classified; Z97.8 Presence of other specified devices; Z45.1 Encounter for adjustment and management of infusion pump
CPT/HCPCS: 62370

== ENCOUNTER 2024-02-24 08:10 | Outpatient (POV) | payer BC, SELFPAY ==
--- NOTE | 2024-02-24 08:34 | EXP.PAIN.PRO ---
Procedure Date: 02/24/24 Time: 08:35 Anesthesiologist:: Laura Bishop APRN Complications:: None Pre-procedure Diagnosis:: Degenerative disc disease of lumbar spine with lumbar radiculopathy symptoms, lumbar postlaminectomy syndrome Post-procedure Diagnosis:: Same Indications for Procedure:: Patient is a pleasant 58-year-old male who presents today for follow-up of intrathecal. Today he rates his pain a 10 out of 10. Patient states that he has had complete resolution of the leg swelling and urinary retention symptoms following the medication change. He does however state he is having severe pain for having to go back down to a lower starting dose. He denies any new trauma or injury. Patient is currently managed with Dilaudid 1 mg/mm a daily dose of 0.1 mg/day. His Jesus has been reviewed and is appropriate. Physical Exam: General: Alert and oriented x3, no acute distress, pleasant and cooperative Lungs: Respirations even and unlabored, symmetrical chest expansion Eyes: PERRL Musculoskeletal: Flexion and extension of lumbar [spine] somewhat guarded secondary to pain, [antalgic gait noted] Neurological: Speech clear, no gross sensory deficit Procedure Details:: Informed consent was obtained and the risk and benefits of the procedure were explained to the patient. Patient was taken to the procedure room where noninvasive monitoring was placed including noninvasive blood pressure cuff and pulse oximeter. Patient's pump was interrogated and was reprogrammed to Dilaudid 0.13 mg/day. The patient tolerated the procedure well with no complications. Plan and Disposition:: Patient tolerated his intrathecal increase with no complications and was discharged neurologically intact. We will have the patient come back in 2 weeks for additional adjustment and reprogram. Patient was counseled that in future if he needs to be seen sooner than his upcoming appointment to make sure that he sends a message to get back to me and that we will always accommodate and get palpitations in as soon as possible. Patient is agreeable to this plan of care. Patient has been instructed to contact the clinic with any concerns before the next appointment. Dr. Dick has reviewed this note and agrees with this plan of care. This note was dictated using voice recognition software and make contain errors or omissions. -- It Is medically necessary for this patient to continue to have their intrathecal pump refilled at regular intervals. This patient had an intrathecal pain pump implanted after meeting criteria of chronic intractable pain for greater than 3 months and failing conservative treatments. Patient has committed and been compliant to the treatment plan and all planned follow up care. Since implantation of the intrathecal pain pump, the patient has had decreased pain and been more functional. Oral medications have been reduced including intake of oral opioids. Patient continues to do well with intrathecal therapy with decrease in pain symptoms and increase in functional status. Stopping intrathecal medications can lead to life threatening withdrawal, seizures, cardiac arrest, severe pain, and possible . Pumps that are not refilled at regular intervals can be damages and cause and need for replacement. We continually titrate dose and concentration to optimize pain relief and function. We are limited in concentration for certain drugs to safely deliver medications through the pump and stay within the recommendations from the Polyanalgesic Consensus Committee Guidelines. Depending on dose and concentration these pumps may need to be refilled sooner than 3 months as we titrate.
[2024-02-24 08:43] VITALS: BP 129/72; PULSE 89; RESP 19; O2SAT 97; BMI 34.4
== END 2024-02-24 23:59 | disposition home or self-care (01) ==
PROVIDERS: PCP Nurse Practitioner Family; Visit Provider Nurse Practitioner Family
DX: M51.16 Intervertebral disc disorders with radiculopathy, lumbar region (principal); M96.1 Postlaminectomy syndrome, not elsewhere classified; Z97.8 Presence of other specified devices; Z45.1 Encounter for adjustment and management of infusion pump
CPT/HCPCS: 62368; 99212; 99213; G0463

== ENCOUNTER 2024-03-09 08:08 | Outpatient (POV) | payer BC, SELFPAY ==
[2024-03-09 08:33] VITALS: BP 111/72; PULSE 87; RESP 16; O2SAT 96; BMI 34.5
--- NOTE | 2024-03-09 08:46 | EXP.PAIN.PRO ---
Procedure Date: 03/09/24 Time: 08:37 Anesthesiologist:: Laura Bishop APRN Complications:: None Pre-procedure Diagnosis:: Degenerative disc disease of lumbar spine with lumbar radiculopathy symptoms, lumbar postlaminectomy syndrome Post-procedure Diagnosis:: Same Indications for Procedure:: Patient is a pleasant 58-year-old male who presents today for intrathecal adjustment and reprogram. Today he rates his pain a 6 out of 10. He does state that he feels like he has been getting better pain coverage with the increased dose that we have been doing. Patient is currently managed with Dilaudid 1 mg/mL with a daily dose of 0.1299 mg/day. He denies any side effects from this medication. His Jesus has been reviewed and is appropriate. Physical Exam: General: Alert and oriented x3, no acute distress, pleasant and cooperative Lungs: Respirations even and unlabored, symmetrical chest expansion Eyes: PERRL Musculoskeletal: Flexion and extension of lumbar [spine] somewhat guarded secondary to pain, [antalgic gait noted] Neurological: Speech clear, no gross sensory deficit Procedure Details:: Informed consent was obtained and the risk and benefits of the procedure were explained to the patient. Patient was taken to the procedure room where noninvasive monitoring was placed including noninvasive blood pressure cuff and pulse oximeter. Patient's pump was interrogated and was reprogrammed to Dilaudid 0.1561 mg/day. The patient tolerated the procedure well with no complications. Plan and Disposition:: Patient tolerated his intrathecal increase with no complications and was discharged neurologically intact. We did also set up his PTM bolus device. Patient will return to clinic in 1 month for reevaluation of symptoms and plan of care. Patient has been instructed to contact the clinic with any concerns before the next appointment. Dr. Dick has reviewed this note and agrees with this plan of care. This note was dictated using voice recognition software and make contain errors or omissions. -- It Is medically necessary for this patient to continue to have their intrathecal pump refilled at regular intervals. This patient had an intrathecal pain pump implanted after meeting criteria of chronic intractable pain for greater than 3 months and failing conservative treatments. Patient has committed and been compliant to the treatment plan and all planned follow up care. Since implantation of the intrathecal pain pump, the patient has had decreased pain and been more functional. Oral medications have been reduced including intake of oral opioids. Patient continues to do well with intrathecal therapy with decrease in pain symptoms and increase in functional status. Stopping intrathecal medications can lead to life threatening withdrawal, seizures, cardiac arrest, severe pain, and possible . Pumps that are not refilled at regular intervals can be damages and cause and need for replacement. We continually titrate dose and concentration to optimize pain relief and function. We are limited in concentration for certain drugs to safely deliver medications through the pump and stay within the recommendations from the Polyanalgesic Consensus Committee Guidelines. Depending on dose and concentration these pumps may need to be refilled sooner than 3 months as we titrate.
== END 2024-03-09 23:59 | disposition home or self-care (01) ==
PROVIDERS: PCP Nurse Practitioner Family; Visit Provider Nurse Practitioner Family
DX: M51.36 Other intervertebral disc degeneration, lumbar region (principal); M54.16 Radiculopathy, lumbar region; M96.1 Postlaminectomy syndrome, not elsewhere classified
CPT/HCPCS: 62368; 99203; 99212; 99213; G0463

== ENCOUNTER 2024-04-07 08:30 | Outpatient (POV) | payer BC, SELFPAY ==
[2024-04-07 08:42] VITALS: BP 144/75; PULSE 79; RESP 18; TEMP 36.7; O2SAT 99; BMI 33.2
--- NOTE | 2024-04-07 09:14 | EXP.PAIN.PRO ---
Procedure Date: 04/07/24 Time: 08:54 Anesthesiologist:: Laura Bishop APRN Complications:: None Pre-procedure Diagnosis:: Degenerative disc disease of lumbar spine with lumbar radiculopathy symptoms, lumbar postlaminectomy syndrome Post-procedure Diagnosis:: Same Indications for Procedure:: Patient is a pleasant 58-year-old male who presents today for intrathecal adjustment and reprogram. Today he rates his pain a 6 out of 10. From our last visit he does state that he has been having lowered blood pressure as well as some thyroid issues. He states that they are doing some additional testing to see what they needs to be done or medications added. Patient states the big issue was a lot of fatigue lately. Patient is currently managed with Dilaudid 1 mg/mL with a daily dose of 0.1561 mg/day. He denies any side effects from this medication. He is requesting an increase. Patient is on gabapentin from an outside provider and is stating that he has provider retired and that his new one was unable to prescribe these medications however he is going to see about switching providers but is asking whether or not in future if this is a medication we can take over. His Jesus has been reviewed and is appropriate. Physical Exam: General: Alert and oriented x3, no acute distress, pleasant and cooperative Lungs: Respirations even and unlabored, symmetrical chest expansion Eyes: PERRL Musculoskeletal: Flexion and extension of lumbar [spine] somewhat guarded secondary to pain, [antalgic gait noted] Neurological: Speech clear, no gross sensory deficit Procedure Details:: Informed consent was obtained and the risk and benefits of the procedure were explained to the patient. Patient was taken to the procedure room where noninvasive monitoring was placed including noninvasive blood pressure cuff and pulse oximeter. Patient's pump was interrogated and was reprogrammed to Dilaudid 0.1875 mg/day. The patient tolerated the procedure well with no complications. Plan and Disposition:: Patient tolerated his intrathecal increase with no complications and was discharged neurologically intact. I did discuss with the patient that I do not have a problem taking over his gabapentin however we would need something in writing before we started this. Patient acknowledges understanding. Patient will return to clinic in 1 month for reevaluation of symptoms and plan of care. Patient has been instructed to contact the clinic with any concerns before the next appointment. Dr. Dick has reviewed this note and agrees with this plan of care. This note was dictated using voice recognition software and make contain errors or omissions. -- It Is medically necessary for this patient to continue to have their intrathecal pump refilled at regular intervals. This patient had an intrathecal pain pump implanted after meeting criteria of chronic intractable pain for greater than 3 months and failing conservative treatments. Patient has committed and been compliant to the treatment plan and all planned follow up care. Since implantation of the intrathecal pain pump, the patient has had decreased pain and been more functional. Oral medications have been reduced including intake of oral opioids. Patient continues to do well with intrathecal therapy with decrease in pain symptoms and increase in functional status. Stopping intrathecal medications can lead to life threatening withdrawal, seizures, cardiac arrest, severe pain, and possible . Pumps that are not refilled at regular intervals can be damages and cause and need for replacement. We continually titrate dose and concentration to optimize pain relief and function. We are limited in concentration for certain drugs to safely deliver medications through the pump and stay within the recommendations from the Polyanalgesic Consensus Committee Guidelines. Depending on dose and concentration these pumps may need to be refilled sooner than 3 months as we titrate.
== END 2024-04-07 23:59 | disposition home or self-care (01) ==
PROVIDERS: PCP Nurse Practitioner; Visit Provider Nurse Practitioner Family
DX: M96.1 Postlaminectomy syndrome, not elsewhere classified (principal); Z96.89 Presence of other specified functional implants; Z45.1 Encounter for adjustment and management of infusion pump; M51.16 Intervertebral disc disorders with radiculopathy, lumbar region; Z87.891 Personal history of nicotine dependence
CPT/HCPCS: 62368; 99212; G0463

== ENCOUNTER 2024-05-03 07:49 | Day surgery (SDC) | payer BC, SELFPAY ==
[2024-05-03 08:09] VITALS: BP 144/94; PULSE 77; RESP 16; TEMP 36.6; O2SAT 97; BMI 33.9
[2024-05-03 08:35] VITALS: BP 145/90; PULSE 71; RESP 18; O2SAT 97
[2024-05-03 08:36] VITALS: BP 145/90; PULSE 72; RESP 18; O2SAT 97
--- NOTE | 2024-05-03 08:39 | P.PCN_ITS ---
Procedure Date: 05/03/24 Time: 08:15 Anesthesiologist:: Deni Patterson CRNA Complications:: None Pre-procedure Diagnosis:: Degenerative disc lumbar spine multilevels. Lumbar radiculopathy. Lumbar postlaminectomy syndrome. Post-procedure Diagnosis:: Same. Indications for Procedure:: Patient is a very pleasant 58-year-old male comes our clinic today for intrathecal pain pump interrogation and refill. Patient is currently being managed with hydromorphone 1 mg/mL at a rate of 0.1875 mg/day. Patient doing very well with his current settings. He is not reporting any side effects or complications. He is not requesting any changes. Patient is awake alert [place] x 3. In no acute distress. Flexion-extension lumbar spine somewhat guarded secondary to pain. Deep tendon reflexes upper lower extremities normal. Motor strength upper and lower extremities normal. There is no gross sensory deficit. Gait is normal. Procedure Details:: Details of the procedure explained to the patient. The patient taken the procedure room placed in the sitting position. They over the pumps cleansed using chlorhexidine as a cleansing solution. The pump was interrogated. The pump was accessed with ease using a 22-gauge inch and half needle. 5 mL of solution was withdrawn discarded appropriately. The pump was then filled with 20 cc of a solution containing hydromorphone 1 mg/mL. The rate will continue at 0.1875 mg/day. Patient tolerated procedure without difficulty. There are no complications. Plan and Disposition:: Patient was discharged without incident.
[2024-05-03 08:47] VITALS: BP 138/84; PULSE 72; RESP 16; O2SAT 97
== END 2024-05-03 08:47 | disposition home or self-care (01) ==
PROVIDERS: PCP Nurse Practitioner; Visit Provider Nurse Anesthetist, Certified Registered
DX: M96.1 Postlaminectomy syndrome, not elsewhere classified; Z79.891 Long term (current) use of opiate analgesic; M51.36 Other intervertebral disc degeneration, lumbar region
CPT/HCPCS: 95991

== ENCOUNTER 2024-05-09 15:09 | Outpatient (POV) | payer BC, SELFPAY ==
[2024-05-09 16:02] VITALS: BP 125/81; PULSE 77; RESP 18; O2SAT 97; BMI 33.1
--- NOTE | 2024-05-09 16:04 | P.PCN_ITS ---
Procedure Date: 05/09/24 Time: 16:04 Anesthesiologist:: Laura Bishop APRN Complications:: None Pre-procedure Diagnosis:: Degenerative disc disease of lumbar spine with lumbar radiculopathy symptoms Post-procedure Diagnosis:: Same Indications for Procedure:: Patient is a pleasant 58-year-old male who presents today for intrathecal adjustment and reprogram. Today he rates his pain at 8 out of 10. Patient does state from the last time he was in our office he ended up having [address] ents placed. Patient does state this was all related to a blockage that was causing him to feel very weak and tired continuously over the last 4 months. Patient does state he is feeling much better now and is able to do more activity. He does state that they are planning on doing some additional testing and are scheduled to start him on testosterone therapy. Patient is currently managed with intrathecal Dilaudid 0.1875 mg/day. He denies any side effects from this medication. His Jesus has been reviewed and is appropriate. Physical Exam: General: Alert and oriented x3, no acute distress, pleasant and cooperative Lungs: Respirations even and unlabored, symmetrical chest expansion Eyes: PERRL Musculoskeletal: Flexion and extension of lumbar [spine] somewhat guarded secondary to pain, [antalgic gait noted] Neurological: Speech clear, no gross sensory deficit Procedure Details:: Informed consent was obtained and the risk and benefits of the procedure were explained to the patient. Patient was taken to the procedure room where noninvasive monitoring was placed including noninvasive blood pressure cuff and pulse oximeter. Patient's pump was interrogated and was reprogrammed to Dilaudid 0.2343 mg/day. The patient tolerated the procedure well with no complications. Plan and Disposition:: Patient tolerated his intrathecal increase with no complications and was discharged neurologically intact. Patient will return to clinic in 2 weeks for possible additional adjustment and reprogram. We will see the patient back in the clinic at the next intrathecal refill. Patient has been instructed to contact the clinic with any concerns before the next appointment. Dr. Dick has reviewed this note and agrees with this plan of care. This note was dictated using voice recognition software and make contain errors or omissions. -- It Is medically necessary for this patient to continue to have their intrathecal pump refilled at regular intervals. This patient had an intrathecal pain pump implanted after meeting criteria of chronic intractable pain for greater than 3 months and failing conservative treatments. Patient has committed and been compliant to the treatment plan and all planned follow up care. Since implantation of the intrathecal pain pump, the patient has had decreased pain and been more functional. Oral medications have been reduced including intake of oral opioids. Patient continues to do well with intrathecal therapy with decrease in pain symptoms and increase in functional status. Stopping intrathecal medications can lead to life threatening withdrawal, seizures, cardiac arrest, severe pain, and possible . Pumps that are not refilled at regular intervals can be damages and cause and need for replacement. We continually titrate dose and concentration to optimize pain relief and function. We are limited in concentration for certain drugs to safely deliver medications through the pump and stay within the recommendations from the Polyanalgesic Consensus Committee Guidelines. Depending on dose and concentration these pumps may need to be refilled sooner than 3 months as we titrate.
== END 2024-05-09 23:59 | disposition home or self-care (01) ==
PROVIDERS: PCP Nurse Practitioner; Visit Provider Nurse Practitioner Family
DX: M51.36 Other intervertebral disc degeneration, lumbar region (principal)
CPT/HCPCS: 62368; 99213; G0463

== ENCOUNTER 2024-05-26 08:07 | Outpatient (POV) | payer BC, SELFPAY ==
[2024-05-26 08:39] VITALS: BP 137/82; PULSE 98; RESP 16; BMI 33.6
--- NOTE | 2024-05-26 09:12 | EXP.PAIN.PRO ---
Procedure Date: 05/26/24 Time: 08:44 Anesthesiologist:: Laura Bishop APRN Complications:: None Pre-procedure Diagnosis:: Degenerative disc disease of lumbar spine with lumbar radiculopathy symptoms Post-procedure Diagnosis:: Same Indications for Procedure:: Patient is a pleasant 58-year-old male who presents today for intrathecal adjustment and reprogram. He does rate his pain a 5 out of 10. Patient does state that the last increase did seem to really help however he still feels like it could use additional adjustment. Patient is currently managed with Dilaudid 1 mg/mL with a daily dose of 0.2343 mg/day. He denies any side effects from this medication. Patient does state that his noticed his blood pressure dropped down a little around 99/66 from time to time following his boluses. Patient states he does not feel any changes and states he is unsure if this has anything to even do with the boluses. His Jesus has been reviewed and is appropriate. Physical Exam: General: Alert and oriented x3, no acute distress, pleasant and cooperative Lungs: Respirations even and unlabored, symmetrical chest expansion Eyes: PERRL Musculoskeletal: Flexion and extension of lumbar [spine] somewhat guarded secondary to pain, [antalgic gait noted] Neurological: Speech clear, no gross sensory deficit Procedure Details:: Informed consent was obtained and the risk and benefits of the procedure were explained to the patient. Patient was taken to the procedure room where noninvasive monitoring was placed including noninvasive blood pressure cuff and pulse oximeter. Patient's pump was interrogated and was reprogrammed to Dilaudid 0.2926 mg/day. The patient tolerated the procedure well with no complications. Plan and Disposition:: Patient tolerated his intrathecal increase with no complications and was discharged neurologically in [facility]. Patient will return to clinic in 1 month for reevaluation of symptoms and plan of care. Risks and benefits of the medication have been explained in detail to the patient. The patient does understand the risk of dependence on the medication when given over a prolonged period. Patient has been advised of risks of oversedation with the prescribed medication. Narcan has been offered to the paitent in the event of oversedation. Patient has been advised that a family member should also be educated regarding administration of Narcan. The patient has been advised to consult with his/her primary care provider and pharmacist regarding drug-drug interaction of medications currently prescribed. Patient has been prescribed a controlled substance after being counseled on the medication, medication safety, and possible side effects. Opioid contract was reviewed and signed by the patient, and that they have agreed to all of the terms set forth by our compliance program. Patient has been instructed to contact the clinic with any concerns before the next appointment. Dr. Dick has reviewed this note and agrees with this plan of care. This note was dictated using voice recognition software and make contain errors or omissions.
== END 2024-05-26 23:59 | disposition home or self-care (01) ==
PROVIDERS: PCP Nurse Practitioner; Visit Provider Nurse Practitioner Family
DX: M51.16 Intervertebral disc disorders with radiculopathy, lumbar region (principal)
CPT/HCPCS: 62368; 99212; 99213; G0463

== ENCOUNTER 2024-06-28 07:51 | Day surgery (SDC) | payer BC, SELFPAY ==
[2024-06-28 08:38] VITALS: BP 115/65; PULSE 67; RESP 16; TEMP 36.4; O2SAT 100; BMI 32.5
[2024-06-28 08:43] VITALS: BP 93/66; PULSE 68; RESP 18
[2024-06-28 08:55] VITALS: BP 121/62; PULSE 58; RESP 16; O2SAT 100
--- NOTE | 2024-06-28 08:58 | P.PCN_ITS ---
Procedure Date: 06/28/24 Time: 08:30 Anesthesiologist:: Deni Patterson CRNA Complications:: None Pre-procedure Diagnosis:: Degenerative disc lumbar spine multilevels. Lumbar radiculopathy. Lumbar postlaminectomy syndrome Post-procedure Diagnosis:: Same. Indications for Procedure:: Patient is a very pleasant 58-year-old male who comes our clinic today for intrathecal pain pump interrogation and refill. He is currently being managed with hydromorphone 1 mg/mL at a rate of 0.2343 mg/day. He is reporting low back pain as well as bilateral hip and leg radicular symptoms at times. He rates his pain 8/10. He is requesting increase in the intrathecal pain pump rate. I think this is reasonable. Will increase him to 20%. His new rate will be 0.2926 mg/day. Patient is awake alert [place] x 3. In no acute distress. Flexion-extension lumbar spine somewhat guarded secondary to pain. Deep tendon reflexes upper and lower extremities normal. Motor strength upper lower extremities normal. There is no gross sensory deficit. Gait is normal. Procedure Details:: Details of the procedure explained to the patient. The patient taken procedure room placed in sitting position. They over the pumps cleansed using chlorhexidine's cleansing solution. The pump was interrogated. The pump was accessed with ease using a 22-gauge inch and half needle. 4 mL of solution was withdrawn discarded appropriate. The pump was then filled with 20 cc of solution containing hydromorphone 1 mg/mL. Patient's intrathecal pump rate was reprogrammed to 0.2926 mg/day. Patient tolerated procedure without difficulty. There are no complications. Plan and Disposition:: Patient was discharged without incident.
== END 2024-06-28 08:55 | disposition home or self-care (01) ==
LOC: SC.PAINP 07:52
PROVIDERS: PCP Nurse Practitioner; Visit Provider Nurse Anesthetist, Certified Registered
DX: M51.16 Intervertebral disc disorders with radiculopathy, lumbar region (principal); M96.1 Postlaminectomy syndrome, not elsewhere classified
CPT/HCPCS: 62370

== ENCOUNTER 2024-07-26 07:41 | Day surgery (SDC) | payer BC, SELFPAY ==
[2024-07-26 08:15] VITALS: BP 128/76; PULSE 63; RESP 16; TEMP 36.6; O2SAT 97; BMI 32.8
[2024-07-26 08:29] VITALS: BP 130/79; PULSE 64; RESP 18; O2SAT 99
[2024-07-26 08:31] VITALS: BP 130/79; PULSE 63; RESP 18; O2SAT 99
[2024-07-26 08:45] VITALS: BP 132/87; PULSE 60; RESP 16; O2SAT 95
--- NOTE | 2024-07-26 08:51 | EXP.PAIN.PRO ---
Procedure Date: 07/26/24 Time: 08:20 Anesthesiologist:: Deni Patterson CRNA Complications:: None Pre-procedure Diagnosis:: Degenerative disc lumbar spine multilevels. Lumbar radiculopathy. Lumbar postlaminectomy syndrome. Post-procedure Diagnosis:: Same. Indications for Procedure:: Patient is a very pleasant 58-year-old male who comes our clinic today for intrathecal pain pump interrogation and refill. Will be changing his medication from hydromorphone 1 mg/mL to hydromorphone 2 mg/mL. His current rate is 0.3507 mg/day. He is requesting a small increase due to low back pain as well as bilateral hip pain with activity. 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 I will increase him to 10%. His new rate will be 0.3864 mg/day. Patient is awake alert [place] x 3. No acute distress. Flexion-extension lumbar spine somewhat guarded secondary to pain. Deep tendon reflexes upper lower extremities normal. Motor strength upper lower extremities normal. There is no gross sensory deficit. Gait is normal. Procedure Details:: Details of the procedure explained to the patient. The patient taken the procedure and placed in the sitting position. The area of the pump was cleansed using chlorhexidine as a cleansing solution. The pump was interrogated. Pump was accessed with ease using a 22-gauge inch and half needle. 9 mL of solution was withdrawn and discarded appropriate. The pump was then filled with 20 cc of solution containing hydromorphone 2 mg/mL. Pump rate will be increased to 0.3864 mg/day. Patient tolerated procedure without difficulty. There are no complications. Plan and Disposition:: Patient was discharged without incident.
== END 2024-07-26 08:45 | disposition home or self-care (01) ==
LOC: SC.PAINP 07:42
PROVIDERS: PCP Nurse Practitioner; Visit Provider Nurse Anesthetist, Certified Registered
DX: M51.16 Intervertebral disc disorders with radiculopathy, lumbar region (principal); M96.1 Postlaminectomy syndrome, not elsewhere classified
CPT/HCPCS: 62370

== ENCOUNTER 2024-09-30 08:04 | Day surgery (SDC) | payer BC, SELFPAY ==
[2024-09-30 08:25] VITALS: BP 139/79; PULSE 71; RESP 16; TEMP 36.4; O2SAT 95; BMI 32.5
[2024-09-30 08:54] VITALS: BP 122/85; PULSE 75; RESP 18; O2SAT 98
[2024-09-30 08:55] VITALS: BP 122/85; PULSE 75; RESP 18; O2SAT 98
--- NOTE | 2024-09-30 08:57 | P.PCN_ITS ---
Procedure Date: 09/30/24 Time: 08:57 Anesthesiologist:: Laura Bishop APRN Complications:: None Pre-procedure Diagnosis:: Degenerative disc disease of lumbar spine with lumbar radiculopathy symptoms Post-procedure Diagnosis:: Same Indications for Procedure:: Patient is a pleasant 58-year-old male who presents today for intrathecal refill and reprogram. Today he rates his pain a 5 or 6 out of 10. He denies any new trauma or injury. He does state that he has been having a little bit more pain under his pump that he noticed when he was exercising. Patient denies any other issues. He is currently managed with Dilaudid 1 mg/mL with a daily dose of 0.3864 mg/day. He denies any side effects from this occasion. He is prescribed gabapentin and testosterone from outside providers. His Jesus has been reviewed and is appropriate. Physical Exam: General: Alert and oriented x3, no acute distress, pleasant and cooperative Lungs: Respirations even and unlabored, symmetrical chest expansion Eyes: PERRL Musculoskeletal: Flexion and extension of lumbar [spine] somewhat guarded second prema to pain, [antalgic gait noted] Neurological: Speech clear, no gross sensory deficit Procedure Details:: Informed consent was obtained and the risk and benefits of the procedure were explained to the patient. The patient had noninvasive monitoring placed including noninvasive blood pressure cuff and pulse oximeter. Patient's pump was interrogated. The area over the pump was cleansed with chlorhexidine as a cleansing solution. In sterile fashion the pump was accessed with a 22-gauge needle. Approximately 6.4 mls of the pump solution was removed and discarded appropriately. The pump was then refilled with 20 mL's of Dilaudid 1 mg/mL. The needle was withdrawn and a bandage was placed over the puncture site. The infusion rate was reprogrammed and increased 10% to Dilaudid 0.4249 mg/day. The patient tolerated well with no complication. Plan and Disposition:: Patient tolerated his intrathecal increase and reprogram with no complications and was discharged neurologically intact. I did discuss with patient that he may benefit from trigger point injections around his pump site where he does have additional soreness. We will follow-up with this at future. Patient will return to clinic on or before his next intrathecal refill date. We will see the patient back in the clinic at the next intrathecal refill. Patient has been instructed to contact the clinic with any concerns before the next appointment. Dr. Dick has reviewed this note and agrees with this plan of care. This note was dictated using voice recognition software and make contain errors or omissions. -- It Is medically necessary for this patient to continue to have their intrathecal pump refilled at regular intervals. This patient had an intrathecal pain pump implanted after meeting criteria of chronic intractable pain for greater than 3 months and failing conservative treatments. Patient has committed and been compliant to the treatment plan and all planned follow up care. Since implantation of the intrathecal pain pump, the patient has had decreased pain and been more functional. Oral medications have been reduced including intake of oral opioids. Patient continues to do well with intrathecal therapy with decrease in pain symptoms and increase in functional status. Stopping intrathecal medications can lead to life threatening withdrawal, seizures, cardiac arrest, severe pain, and possible . Pumps that are not refilled at regular intervals can be damages and cause and need for replacement. We continually titrate dose and concentration to optimize pain relief and function. We are limited in concentration for certain drugs to safely deliver medications through the pump and stay within the recommendations from the Polyanalgesic Consensus Committee Guidelines. Depending on dose and concentration these pumps may need to be refilled sooner than 3 months as we titrate. A UDS is needed to verify patient's compliance with our office pain contract. This is ordered based off specific treatments related to chronic pain with the potential to abuse certain medications.
[2024-09-30 09:03] VITALS: BP 135/85; PULSE 75; RESP 16; O2SAT 100
== END 2024-09-30 09:03 | disposition home or self-care (01) ==
PROVIDERS: PCP Nurse Practitioner; Visit Provider Nurse Practitioner Family
DX: M51.16 Intervertebral disc disorders with radiculopathy, lumbar region (principal)
CPT/HCPCS: 62370

== ENCOUNTER 2024-12-02 09:44 | Day surgery (SDC) | payer BC, SELFPAY ==
[2024-12-02 09:58] VITALS: BP 161/59; PULSE 81; RESP 16; TEMP 36.4; O2SAT 98; BMI 32.5
--- NOTE | 2024-12-02 10:01 | EXP.PAIN.PRO ---
Procedure Date: 12/02/24 Time: 10:07 Anesthesiologist:: Laura Bishop APRN Complications:: None Pre-procedure Diagnosis:: Degenerative disc disease of lumbar spine with lumbar radiculopathy symptoms Post-procedure Diagnosis:: Same Indications for Procedure:: Patient is a pleasant 59-year-old male who presents today for intrathecal refill and reprogram. Today he rates his pain a 5 out of 10. He denies any new trauma or injury. He does state that the medication is working well. He is currently managed with Dilaudid 2 mg/mL with a daily dose of 0.4249 milligrams per day. He is requesting if we can go up on this medication. Patient does also make mention that he recently he has been on oral steroids for the last 3 months and that that is affecting his weight as well as swelling in his legs. Patient states that he is anticipating they will stop this medication very soon. His Jesus has been reviewed and is appropriate. Physical Exam: General: Alert and oriented x3, no acute distress, pleasant and cooperative Lungs: Respirations even and unlabored, symmetrical chest expansion Eyes: PERRL Musculoskeletal: Flexion and extension of lumbar [spine] somewhat guarded secondary to pain, [antalgic gait noted] Neurological: Speech clear, no gross sensory deficit Procedure Details:: Informed consent was obtained and the risk and benefits of the procedure were explained to the patient. The patient had noninvasive monitoring placed including noninvasive blood pressure cuff and pulse oximeter. Patient's pump was interrogated. The area over the pump was cleansed with chlorhexidine as a cleansing solution. In sterile fashion the pump was accessed with a 22-gauge needle. Approximately 6 mls of the pump solution was removed and discarded appropriately. The pump was then refilled with 20 mL's of Dilaudid 2mg/mL. The needle was withdrawn and a bandage was placed over the puncture site. The infusion rate was reprogrammed and increased 20% to Dilaudid 0.5095 mg/day. The patient tolerated well with no complication. Plan and Disposition:: Patient tolerated the procedure well with no complications and was discharged neurologically intact. Patient will return to clinic on or before their next intrathecal refill date. We will see the patient back in the clinic at the next intrathecal refill. Patient has been instructed to contact the clinic with any concerns before the next appointment. Dr. Dick has reviewed this note and agrees with this plan of care. This note was dictated using voice recognition software and make contain errors or omissions. -- It Is medically necessary for this patient to continue to have their intrathecal pump refilled at regular intervals. This patient had an intrathecal pain pump implanted after meeting criteria of chronic intractable pain for greater than 3 months and failing conservative treatments. Patient has committed and been compliant to the treatment plan and all planned follow up care. Since implantation of the intrathecal pain pump, the patient has had decreased pain and been more functional. Oral medications have been reduced including intake of oral opioids. Patient continues to do well with intrathecal therapy with decrease in pain symptoms and increase in functional status. Stopping intrathecal medications can lead to life threatening withdrawal, seizures, cardiac arrest, severe pain, and possible . Pumps that are not refilled at regular intervals can be damages and cause and need for replacement. We continually titrate dose and concentration to optimize pain relief and function. We are limited in concentration for certain drugs to safely deliver medications through the pump and stay within the recommendations from the Polyanalgesic Consensus Committee Guidelines. Depending on dose and concentration these pumps may need to be refilled sooner than 3 months as we titrate. A UDS is needed to verify patient's compliance with our office pain contract. This is ordered based off specific treatments related to chronic pain with the potential to abuse certain medications.
[2024-12-02 10:03] VITALS: BP 141/72; PULSE 80; RESP 18; O2SAT 97
[2024-12-02 10:04] VITALS: BP 141/72; PULSE 78; RESP 18; O2SAT 97
[2024-12-02 10:22] VITALS: BP 144/79; PULSE 78; RESP 16; O2SAT 98
== END 2024-12-02 10:22 | disposition home or self-care (01) ==
PROVIDERS: PCP Nurse Practitioner; Visit Provider Nurse Practitioner Family
DX: M51.16 Intervertebral disc disorders with radiculopathy, lumbar region (principal)
CPT/HCPCS: 62370

== ENCOUNTER 2025-01-27 08:30 | Day surgery (SDC) | payer OTHER, SELFPAY ==
--- NOTE | 2025-01-27 08:42 | P.HP_ITS ---
History of Present Illness *Admission Date: 01/27/25 *Reason for visit:: Intrathecal refill; DDD *History of present illness: Degenerative disc disease [facility] Disclaimer: The information contained in this section may have been updated after the patient was seen, as this information can be updated by other users. Medical History (Updated 01/27/25 @ 08:44 by Laura Bishop APRN) History of varicose veins History of left heart catheterization Pulmonary nodule Aneurysmal dilatation Kidney stones Anxiety HLD (hyperlipidemia) GERD (gastroesophageal reflux disease) Depression CHF (congestive heart failure) Osteoarthritis HTN (hypertension) Surgical History H/O vasectomy H/O shoulder surgery H/O lithotripsy Hx of cholecystectomy History of bilateral knee replacement History of lumbar spinal fusion Family History Father Family history of cancer Other Diabetes Hypertension Social History Smoking Status: Former smoker alcohol intake: never substance use type: denies use current occupational status: other Travel in the last 8 weeks?: None Have you lived/traveled outside [place] in past 30 days?: No Contact w/someone who lives/traveled outside US past 30 days?: No Exposure to someone with infectious disease in past 14 days?: No Do you have a fever (greater than 100.4 F or 38 C)?: No Have you tested positive for COVID-19?: No Exposed to someone with COVID-19 in past 14 days?: No Do you have a sore throat?: No Do you have a cough?: No Do you have any weakness?: No Do you have any diarrhea?: No Are you experiencing any unusual bleeding?: No Do you have any muscle aches/pain?: No Do you have any abdominal pain?: No Are you experiencing loss of taste or smell?: No Other Medical History Have you received the Flu Vaccine for this season: No Have you received the Pneumonia Vaccine: No Review of Systems Review of Systems Review of systems:: pertinent systems reviewed and negative unless documented below Review of systems (narrative): Review of Systems: General: No recent weight changes, no fever, no sleep disturbances Respiratory: No cough, no shortness of air, no recurring pulmonary infections Cardiovascular/peripheral vascular: No chest pain, no palpitations, no edema, no shortness of breath Gastrointestinal: No new onset incontinence, normal bowel movements reported Genitourinary: No new onset incontinence Musculoskeletal: Chronic back pain Psychiatric: [Normal mood/affect] Neurological: [Denies weakness in extremities], [denies balance issues] Meds Home Medications and Allergies Home Medications ?Medication ?Instructions ?Recorded ?Confirmed ?Type buspirone 10 mg tablet 10 mg PO BID 10/19/23 12/02/24 History citalopram 40 mg tablet 40 mg PO DAILY 10/19/23 12/02/24 History diclofenac sodium 75 mg 75 mg PO BID 10/19/23 12/02/24 History tablet,delayed release gabapentin 600 mg tablet 600 mg PO TID 10/19/23 12/02/24 History lisinopril 20 mg tablet 20 mg PO DAILY 10/19/23 12/02/24 History omeprazole 40 mg capsule,delayed 40 mg PO DAILY 10/19/23 12/02/24 History release tamsulosin 0.4 mg capsule 0.4 mg PO DAILY #14 caps 11/27/23 12/02/24 Rx New Prescriptions to Start Prescriptions: Allergies Allergy/AdvReac Type Severity Reaction Status Date / Time amoxicillin AdvReac Other Verified 06/28/24 08:38 meloxicam AdvReac Rash Verified 06/28/24 08:38 Exam Constitutional Constitutional: no acute distress *Routine HEENT Exam Head: Present normocephalic and atraumatic Eye: Present PERRL ENT: Present mucous membranes moist *Routine Neck Exam Neck: Present supple *Routine Respiratory Exam Respiratory: Present CTA bilaterally *Routine Cardiovascular Exam Cardiovascular: Present RRR *Routine Abdominal Exam Abdominal: Present soft *Routine Rectal Exam Rectal:: deferred *Routine Genitalia Exam Genitalia:: normal male Routine Back/Spine/Pelvis Exam Back/Spine: Present pain with flexion *Routine Skin Exam Skin: Present intact, dry and warm *Routine Neurological Exam Neurological: Present alert and oriented X3 Routine Psychiatric Exam Psychiatric: Present normal affect and normal thought process Assessment and Plan *Assessment and plan (1) Chronic pain syndrome: Status: Acute Category: Medical Code(s): G89.4 - Chronic pain syndrome Plan Patient has been instructed to contact the clinic with any concerns before the next appointment. Dr. Bux has reviewed this note and agrees with this plan of care. This note was dictated using voice recognition software and make contain errors or omissions. All injections are used with Lidocaine, Bupivacaine and dexamethasone. Occasionally urine drug screen is needed to verify patient's compliance with our office pain contract. This is ordered based off specific treatments related to chronic pain with the potential to abuse certain medications.
--- NOTE | 2025-01-27 08:44 | P.PCN_ITS ---
Procedure Date: 01/27/25 Time: 08:50 Anesthesiologist:: Laura Bishop APRN Complications:: None Pre-procedure Diagnosis:: Degenerative disc disease of lumbar spine, chronic pain syndrome Post-procedure Diagnosis:: Same Indications for Procedure:: Patient is a pleasant 59-year-old male who presents today for intrathecal refill and reprogram. Patient rates his pain today a 8 out of 10. He states he just still has his chronic pain and does feel like he has peripheral neuropathy symptoms do frequently flareup causing him to stumble or fall however he denies any significant injury. Patient is currently managed with Dilaudid 2 mg/mL with a daily dose of 0.5095 mg/day. He denies any side effects however is requesting an increase. His Jesus has been reviewed. Physical Exam: General: Alert and oriented x3, no acute distress, pleasant and cooperative Lungs: Respirations even and unlabored, symmetrical chest expansion Eyes: PERRL Musculoskeletal: Flexion and extension of lumbar [spine] somewhat guarded secondary to pain, [antalgic gait noted] Neurological: Speech clear, no gross sensory deficit Procedure Details:: Informed consent was obtained and the risk and benefits of the procedure were explained to the patient. The patient had noninvasive monitoring placed including noninvasive blood pressure cuff and pulse oximeter. Patient's pump was interrogated. The area over the pump was cleansed with chlorhexidine as a c leansing solution. In sterile fashion the pump was accessed with a 22-gauge needle. Approximately 4.5 mls of the pump solution was removed and discarded appropriately. The pump was then refilled with 20 mL's of Dilaudid 2 mg/mL. The needle was withdrawn and a bandage was placed over the puncture site. The infusion rate was reprogrammed and increased 15% to Dilaudid 0.5851 mg/day. The patient tolerated well with no complication. Plan and Disposition:: Patient tolerated the procedure well with no complications and was discharged neurologically intact. Patient will return to clinic on or before their next intrathecal refill date. We will see the patient back in the clinic at the next intrathecal refill. Patient has been instructed to contact the clinic with any concerns before the next appointment. Dr. Dick has reviewed this note and agrees with this plan of care. This note was dictated using voice recognition software and make contain errors or omissions. -- It Is medically necessary for this patient to continue to have their intrathecal pump refilled at regular intervals. This patient had an intrathecal pain pump implanted after meeting criteria of chronic intractable pain for greater than 3 months and failing conservative treatments. Patient has committed and been compliant to the treatment plan and all planned follow up care. Since implantation of the intrathecal pain pump, the patient has had decreased pain and been more functional. Oral medications have been reduced including intake of oral opioids. Patient continues to do well with intrathecal therapy with decrease in pain symptoms and increase in functional status. Stopping intrathecal medications can lead to life threatening withdrawal, seizures, cardiac arrest, severe pain, and possible . Pumps that are not refilled at regular intervals can be damages and cause and need for replacement. We continually titrate dose and concentration to optimize pain relief and function. We are limited in concentration for certain drugs to safely deliver medications through the pump and stay within the recommendations from the Polyanalgesic Consensus Committee Guidelines. Depending on dose and concentration these pumps may need to be refilled sooner than 3 months as we titrate. A UDS is needed to verify patient's compliance with our office pain contract. This is ordered based off specific treatments related to chronic pain with the potential to abuse certain medications.
[2025-01-27 08:46] VITALS: BP 142/84; PULSE 74; RESP 16; TEMP 36.8; O2SAT 99; BMI 32.5
[2025-01-27 08:48] VITALS: BP 127/80; PULSE 81; RESP 18; O2SAT 98
[2025-01-27 09:18] VITALS: BP 142/88; PULSE 78; RESP 16; O2SAT 99
== END 2025-01-27 09:18 | disposition home or self-care (01) ==
PROVIDERS: PCP Nurse Practitioner; Visit Provider Nurse Practitioner Family
DX: G89.4 Chronic pain syndrome (principal); M51.369 Other intervertebral disc degeneration, lumbar region without mention of lumbar back pain or lower extremity pain
CPT/HCPCS: 62370

== ENCOUNTER 2025-03-10 08:32 | Day surgery (SDC) | payer OTHER, SELFPAY ==
[2025-03-10 08:35] VITALS: BP 153/104; PULSE 64; RESP 18; O2SAT 100; BMI 33.2
--- NOTE | 2025-03-10 08:41 | EXP.PM.HP ---
History of Present Illness *Admission Date: 03/10/25 *Reason for visit:: Intrathecal refill; DDD *History of present illness: degenerative disc disease [facility] Disclaimer: The information contained in this section may have been updated after the patient was seen, as this information can be updated by other users. Medical History History of varicose veins History of left heart catheterization Pulmonary nodule Aneurysmal dilatation Kidney stones Anxiety HLD (hyperlipidemia) GERD (gastroesophageal reflux disease) Depression CHF (congestive heart failure) Osteoarthritis HTN (hypertension) Surgical History H/O vasectomy H/O shoulder surgery H/O lithotripsy Hx of cholecystectomy History of bilateral knee replacement History of lumbar spinal fusion Family History Father Family history of cancer Other Diabetes Hypertension Social History Smoking Status: Former smoker alcohol intake: never substance use type: denies use current occupational status: other Travel in the last 8 weeks?: None Have you lived/traveled outside US in past 30 days?: No Contact w/someone who lives/traveled outside US past 30 days?: No Exposure to someone with infectious disease in past 14 days?: No Do you have a fever (greater than 100.4 F or 38 C)?: No Have you tested positive for COVID-19?: No Exposed to someone with COVID-19 in past 14 days?: No Do you have a sore throat?: No Do you have a cough?: No Do you have any weakness?: No Do you have any diarrhea?: No Are you experiencing any unusual bleeding?: No Do you have any muscle aches/pain?: No Do you have any abdominal pain?: No Are you experiencing loss of taste or smell?: No Other Medical History Have you received the Flu Vaccine for this season: No Have you received the Pneumonia Vaccine: No Review of Systems Review of Systems Review of systems:: pertinent systems reviewed and negative unless documented below Review of systems (narrative): Review of Systems: General: No recent weight changes, no fever, no sleep disturbances Respiratory: No cough, no shortness of air, no recurring pulmonary infections Cardiovascular/peripheral vascular: No chest pain, no palpitations, no edema, no shortness of breath Gastrointestinal: No new onset incontinence, normal bowel movements reported Genitourinary: No new onset incontinence Musculoskeletal: Chronic back pain Psychiatric: [Normal mood/affect] Neurological: [Denies weakness in extremities], [denies balance issues] Meds Home Medications and Allergies Home Medications ?Medication ?Instructions ?Recorded ?Confirmed ?Type buspirone 10 mg tablet 10 mg PO BID 10/19/23 03/10/25 History citalopram 40 mg tablet 40 mg PO DAILY 10/19/23 03/10/25 History diclofenac sodium 75 mg 75 mg PO BID 10/19/23 03/10/25 History tablet,delayed release gabapentin 600 mg tablet 600 mg PO TID 10/19/23 03/10/25 History lisinopril 20 mg tablet 20 mg PO DAILY 10/19/23 03/10/25 History omeprazole 40 mg capsule,delayed 40 mg PO DAILY 10/19/23 03/10/25 History release tamsulosin 0.4 mg capsule 0.4 mg PO DAILY #14 caps 11/27/23 03/10/25 Rx New Prescriptions to Start Prescriptions: Allergies Allergy/AdvReac Type Severity Reaction Status Date / Time amoxicillin AdvReac Other Verified 06/28/24 08:38 meloxicam AdvReac Rash Verified 06/28/24 08:38 Exam Constitutional Constitutional: no acute distress *Routine HEENT Exam Head: Present normocephalic and atraumatic Eye: Present PERRL ENT: Present mucous membranes moist *Routine Neck Exam Neck: Present supple *Routine Respiratory Exam Respiratory: Present CTA bilaterally *Routine Cardiovascular Exam Cardiovascular: Present RRR *Routine Abdominal Exam Abdominal: Present soft *Routine Rectal Exam Rectal:: deferred *Routine Genitalia Exam Genitalia:: deferred Routine Back/Spine/Pelvis Exam Back/Spine: Present pain with flexion *Routine Skin Exam Skin: Present intact and warm *Routine Neurological Exam Neurological: Present alert and oriented X3 Assessment and Plan *Assessment and plan (1) Chronic pain syndrome: Status: Acute Category: Medical Code(s): G89.4 - Chronic pain syndrome Plan Patient has been instructed to contact the clinic with any concerns before the next appointment. Dr. Dick has reviewed this note and agrees with this plan of care. This note was dictated using voice recognition software and make contain errors or omissions. All injections are used with Lidocaine, Bupivacaine and dexamethasone. Occasionally urine drug screen is needed to verify patient's compliance with our office pain contract. This is ordered based off specific treatments related to chronic pain with the potential to abuse certain medications.
[2025-03-10 08:43] VITALS: BP 166/100; PULSE 64; RESP 18; O2SAT 98
--- NOTE | 2025-03-10 08:43 | EXP.PAIN.PRO ---
Procedure Date: 03/10/25 Time: 08:49 Anesthesiologist:: Laura Bishop APRN Complications:: None Pre-procedure Diagnosis:: Degenerative disc disease of lumbar spine, chronic pain syndrome Post-procedure Diagnosis:: Same Indications for Procedure:: Patient is a pleasant 59-year-old male who presents today for intrathecal refill and reprogram. Today he rates his pain a 5 out of 10. He denies any new falls or injuries. He does state that he feels like he is having a little bit more pain on a regular basis there in his low back. 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 Patient is currently managed with Dilaudid 2 mg/mL with a daily dose of 0.5851 mg/day. He denies any side effects from this medication. Patient is requesting if we can go back on the concentration. He is prescribed gabapentin from an outside provider. His Jesus has been reviewed and is appropriate. Physical Exam: General: Alert and oriented x3, no acute distress, pleasant and cooperative Lungs: Respirations even and unlabored, symmetrical chest expansion Eyes: PERRL Musculoskeletal: Flexion and extension of lumbar [spine] somewhat guarded secondary to pain, [antalgic gait noted] Neurological: Speech clear, no gross sensory deficit Procedure Details:: Informed consent was obtained and the risk and benefits of the procedure were explained to the patient. The patient had noninvasive monitoring placed including noninvasive blood pressure cuff and pulse oximeter. Patient's pump was interrogated. The area over the pump was cleansed with chlorhexidine as a cleansing solution. In sterile fashion the pump was accessed with a 22-gauge needle. Approximately 6.5 mls of the pump solution was removed and discarded appropriately. The pump was then refilled with 20 mL's of 3 mg/mL of Dilaudid. The needle was withdrawn and a bandage was placed over the puncture site. The infusion rate was reprogrammed and increased 20% Dilaudid 0.7014 mg/day. The patient tolerated well with no complication. Plan and Disposition:: Patient tolerated the procedure well with no complications and was discharged neurologically intact. Will go ahead and get the patient an extra appointment for 2-week follow-up in case he does need additional adjustment on his pump settings. Patient will get his next refill date. Patient agrees with this plan of care. We will see the patient back in the clinic at the next intrathecal refill. Patient has been instructed to contact the clinic with any concerns before the next appointment. Dr. Dick has reviewed this note and agrees with this plan of care. This note was dictated using voice recognition software and make contain errors or omissions. -- It Is medically necessary for this patient to continue to have their intrathecal pump refilled at regular intervals. This patient had an intrathecal pain pump implanted after meeting criteria of chronic intractable pain for greater than 3 months and failing conservative treatments. Patient has committed and been compliant to the treatment plan and all planned follow up care. Since implantation of the intrathecal pain pump, the patient has had decreased pain and been more functional. Oral medications have been reduced including intake of oral opioids. Patient continues to do well with intrathecal therapy with decrease in pain symptoms and increase in functional status. Stopping intrathecal medications can lead to life threatening withdrawal, seizures, cardiac arrest, severe pain, and possible . Pumps that are not refilled at regular intervals can be damages and cause and need for replacement. We continually titrate dose and concentration to optimize pain relief and function. We are limited in concentration for certain drugs to safely deliver medications through the pump and stay within the recommendations from the Polyanalgesic Consensus Committee Guidelines. Depending on dose and concentration these pumps may need to be refilled sooner than 3 months as we titrate. A UDS is needed to verify patient's compliance with our office pain contract. This is ordered based off specific treatments related to chronic pain with the potential to abuse certain medications.
[2025-03-10 08:57] VITALS: BP 153/101; PULSE 61; RESP 18; O2SAT 98
== END 2025-03-10 08:57 | disposition home or self-care (01) ==
PROVIDERS: PCP Nurse Practitioner; Visit Provider Nurse Practitioner Family
DX: Z45.1 Encounter for adjustment and management of infusion pump (principal); M51.369 Other intervertebral disc degeneration, lumbar region without mention of lumbar back pain or lower extremity pain; I72.9 Aneurysm of unspecified site; F41.9 Anxiety disorder, unspecified; I11.0 Hypertensive heart disease with heart failure; I50.9 Heart failure, unspecified; F32.A Depression, unspecified; K21.9 Gastro-esophageal reflux disease without esophagitis; E78.5 Hyperlipidemia, unspecified; M19.90 Unspecified osteoarthritis, unspecified site; R91.1 Solitary pulmonary nodule; Z87.891 Personal history of nicotine dependence; Z88.1 Allergy status to other antibiotic agents; Z79.891 Long term (current) use of opiate analgesic; Z79.899 Other long term (current) drug therapy
CPT/HCPCS: 95991

== ENCOUNTER 2025-03-27 10:05 | Outpatient (POV) | payer OTHER, SELFPAY ==
--- OUTSIDE RECORDS SUMMARY | 2025-03-27 10:10 | XMS_ITS | Clinical Summary ---
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 Active busPIRone (BUSPAR) 10 mg tablet Take 10 mg by mouth 2 times daily. Active lisinopriL (PRINIVIL, ZESTRIL) 20 mg tablet Take 20 mg by mouth nightly. Active omeprazole (PRILOSEC) 40 mg Capsule, Delayed Release(E.C.) Take 40 mg by mouth nightly. Active acetaminophen (TYLENOL) 500 mg tablet Take 1,000 mg by mouth every 4 hours as needed for Pain. Active oxymetazoline (AFRIN) 0.05 % nasal spray Hidalgo 1 Hidalgo into nose daily as needed for Congestion. Active docusate sodium (COLACE) 100 mg capsule Take 1 Capsule (100 mg total) by mouth 2 times daily. 60 Capsule 11/13/2021 Active methocarbamoL (ROBAXIN) 750 mg tablet Take 1-2 Tablets (750-1,500 mg total) by mouth every 6 hours as needed (muscle spasm). 120 Tablet 11/13/2021 Active Active Problems Problem Noted Date Diagnosed Date DDD (degenerative disc disease), lumbar 11/10/19 Lumbar radicular syndrome 09/22/2021 Encounter for preoperative vascular examination 09/22/2021 Class 1 obesity due to exces s calories without serious comorbidity with body mass index (BMI) of 31.0 to 31.9 in adult 09/22/2021 Family History Medical History Relation Name Comments Anesthesia Complications Mother not allergic reaction Unsure of problenm with anesthesia-nausea/vomiting-patch behind the ear Heart Problems Neg Hx Relation Name Status Comments Mother Social History Tobacco Use Types Packs/Day Years Used Date Smoking Tobacco: Former Cigarettes Q uit: 08/03/2021 Smokeless Tobacco: Never Comments:1-1.5/day Alcohol Use Standard Drinks/Week Comments Not Currently 0 (1 standard drink = 0.6 oz pur e alcohol) Sex and Gender Information Value Date Recorded Sex Assigned at Not on file Legal Sex Male 9:45 AM EST Gender Identity Not on file Sexual Orientation Not on file Last Filed Vital Signs Vital Sign Reading Time Taken Comments Blood Pressure 135/86 11/13/2021 8:11 AM EST Pulse 102 11/13/2021 8:11 AM EST Temperature 36.4 C (97.6 F) 11/13/2021 8:11 AM EST Respiratory Rate 16 11/13/2021 8:11 AM EST Oxygen Saturation 94% 11/13/2021 8:11 AM EST Inhaled Oxygen Concentration - - Weight 110.6 kg (243 lb 13.3 oz) 11/11/2021 8:21 AM EST Height 182.9 cm (6') 11/11/2021 8:21 AM EST Body Mass Index 33.07 11/11/2021 8:21 AM EST Plan of Treatment Health Maintenance Due Date Last Done Comments Cologuard 1966 Colonoscopy 1966 Colorectal Cancer Screening 1966 FIT 1966 Lipid Screening 1984 Pneumococcal Vaccine: 50+ Years (1 of 1 - PCV) 017 Zoster-RZV(Shingrix) (1 of 2) 2016 COVID-19 Vaccine (1 - 2023- season) 2024 Depression Screening 09/14/2024 Influenza Vaccination (#1) 2025 Tetanus Vaccination (Every 10 Years) 05/03/203104/15 Medical Devices Implanted Type Area Roof Plumber Device Identifier Shelf Expiration Date Model / Serial / Lot [id number] - [id number] Implanted:Qty : 1 on 11/11/2021 by Levon Hernandez MD at [facility] N/A: Spine Lumbar [id number] 03/26/2026 / [id number] / Viper Prime X-Tab 7x60mm Ti - [id number] Implanted:Qty : 4 on 11/11/2021 by Levon Hernandez MD at [facility] Spine Lumbar * J \T\ J DEPUY [id number] / / Viper Prime X-Tab 7x50mm Ti - [id number] Implanted:Qty : 2 on 11/11/2021 by Levon Hernandez MD at [facility] Spine Lumbar * J \T\ J DEPUY [id number] / / Viper2 Lordotic Rayshawn-70mm - [id number] Implanted:Qty : 1 on 11/11/2021 by Levon Hernandez MD at [facility] Spine Lumbar * J \T\ J DEPUY SPINE [id number] / / Viper2 Lordotic Rayshawn-60mm - [id number] Implanted:Qty : 1 on 11/11/2021 by Levon Hernandez MD at [facility] Spine Lumbar * J \T\ J DEPUY SPINE [id number] / / Mis Single Inner Setscw - [id number] Implanted:Qty : 6 on 11/11/2021 by Levon Hernandez MD at [facility] Spine Lumbar * J \T\ J DEPUY SPINE [id number] / / Imp 2 Lvl Kit Viper Prime - [id number] Implanted:Qty : 1 on 11/11/2021 by Levon Hernandez MD at [facility] Spine Lumbar * J \T\ J DEPUY [id number] / / [id number] - [id number] Implanted:Qty : 1 on 11/11/2021 by Levon Hernandez MD at [facility] N/A: Spine Lumbar [id number] 05/14/2026 / [id number] / Graft Bone Kt Infuse Sm - [id number] Implanted:Qty : 1 on 11/11/2021 by Levon Hernandez MD at [facility] Spine Lumbar * [employer] DANEK 05/15/2023 [id number] / / [id number] Spcr 17 Mm Ht 14deg - [id number] Implanted:Qty : 1 on 11/11/2021 by Levon Hernandez MD at [facility] Spine Lumbar * J \T\ J DEPUY 04/13/2031 08.815.225S / / [id number] Spcr 15 Mm Ht 10deg - [id number] Implanted:Qty : 1 on 11/11/2021 by Levon Hernandez MD at [facility] Spine Lumbar * J \T\ J DEPUY 08/13/2026 08.815.214S / / [id number] Fine Tip Scr 2pcs 25mm Strl - [id number] Implanted:Qty : 1 on 11/11/2021 by Levon Hernandez MD at [facility] Spine Lumbar * J \T\ J DEPUY 04/13/2031 04.835.125.0 2S / / [id number] Fine Tip Scr 2pcs 25mm Strl - [id number] Implanted:Qty : 1 on 11/11/2021 by Levon Hernandez MD at [facility] Spine Lumbar * J \T\ J DEPUY 06/13/2031 04.835.125.0 2S / / [id number] Fine Tip Scr 2pcs 25mm Strl - [id number] Implanted:Qty : 1 on 11/11/2021 by Levon Hernandez MD at [facility] Spine Lumbar * J \T\ J DEPUY 08/13/2031 04.835.125.0 2S / / [id number] Fine Tip Scr 2pcs 25mm Strl - [id number] Implanted:Qty : 1 on 11/11/2021 by Levon Hernandez MD at [facility] Spine Lumbar * J \T\ J DEPUY 08/13/2031 04.835.125.0 2S / / [id number] Insurance [employer] Advance Directives For more information, please contact: [phone] * Full Code (Latest Code Status on File) Date Activated Date Inactivated Comments 11/11/2021 1:38 PM No automated c hest compression devices for VAD Patients Care Teams Screen Printing Loader Unloader Relationship Specialty Start Date End Date Manjula Aleman NP [address] [place] [phone] PCP - General Family Medicine 09/04/21 Levon Hernandez MD [id number] [address] Orthopedic Surgery 09/17/21 Jonathan Blank MD [address] [place] [address] Vascular Surgery 09/19/21
--- OUTSIDE RECORDS SUMMARY | 2025-03-27 10:11 | XMS_ITS | Data Portability ---
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 Symptoms consistent with AMERICA; hypersomnia, brain fog, restlessness, witnessed apneas 2. History of HTN, GERD, CAD, Low Testosterone Plan 1.Order HST High suspicion of AMERICA. I discussed the anatomy and physiology of the disease. I explained common symptoms and roasterman effects of the disease. We discussed diagnostic and treatment options as well as realistic expectations with treatment. 2.RTO after HST completed, sooner if needed The patient was sent home with a home sleep test to evaluate complaints of snoring, non restorative sleep, excessive daytime sleepiness, hypersomnia and awakening gasping for breath. The patient was given written instructions after a personal demonstration on how to set up and start the study. Portions of this note may be dictated using voice recognition software and or use of a director of medical services. Variances in spelling and vocabulary are possible and unintentional. Not all errors are caught/corrected . Please notify the author if any discrepancies are noted or if the meaning of any statement is not clear. This is a summary discussion with the patient and in no way is intended to be a verbatum summation of everything discussed. We apologize for any inconvenience. Not available 05/01/2024 21:22:55 05/09/2024 05/09/2024 Assessment 1. AMERICA, Severe *(05/03/2024): severe obstructive sleep apnea with AHI: 45.1 snoring, and sleep-related hypoxia with a nazia of 66%, and maximum heart rate 97 BPM 2. History of HTN, GERD, CAD, Low Testosterone Plan 1. Order APAP 4-20 cm H20, machine and equipment (sent to [facility]) *Patient inquired about Inspire but would like to first proceed with APAP 2.RTO in 3 months for compliance check, sooner if needed Portions of this note may be dictated using voice recognition software and or use of a director of medical services. Variances in spelling and vocabulary are possible and unintentional. Not all errors are caught/corrected . Please notify the author if any discrepancies are noted or if the meaning of any statement is not clear. This is a summary discussion with the patient and in no way is intended to be a verbatum summation of everything discussed. We apologize for any inconvenience. Not available 05/09/2024 11:03:40 08/24/2024 08/24/2024 Assessment 1. AMERICA, Severe *(05/03/2024): severe obstructive sleep apnea with AHI: 45.1 snoring, and sleep-related hypoxia with a nazia of 66%, and maximum heart rate 97 BPM 2. History of HTN, GERD, CAD, Low Testosterone Plan 1. Continue APAP 4-20 cm H20 nightly and prn *Do not drive or operate heavy machinery if feeling tired or fatigued *Patient inquired about Inspire but would like to first proceed with APAP 2.RTO in 4 months for compliance check, sooner if needed Portions of this note may be dictated using voice recognition software and or use of a director of medical services. Variances in spelling and vocabulary are possible and unintentional. Not all errors are caught/corrected . Please notify the author if any discrepancies are noted or if the meaning of any statement is not clear. This is a summary discussion with the patient and in no way is intended to be a verbatum summation of everything discussed. We apologize for any inconvenience. Not available 08/24/2024 09:59:13 Plan of Treatment Reminders Order Date Submit Date Provider Last Modified By Organization Details Last Modified Time Details Appointments None recorded. Lab None recorded. Referral None recorded. Procedures home sleep testing (PROC) 024 024 [email or web address] [id number] Victor Hugo Cevallos DO ([facility]), [address], [place], [address], 4 15:55:19 Surgeries None recorded. Imaging None recorded. Medication Orders None recorded. Patient TargetsNo targets recorded. Patient InstructionsNo instructions recorded. Reason for Referral None Reported. Results Created Date Observation Date Name Description Value Unit Range Abnormal Flag Note LastModifiedBy Organization Detail LastModifiedTime 05/09/20 24 05/03/2024 home sleep testi ng (PROC ) No observ ation record ed. BARCODE Victor Hugo Cevallos DO ([facility]) [address] [facility] [address], [place], [address], 05/09/2024 12:03:55 08/25/20 24 08/20/2024 CPAP compl iance * No observ ation record ed. [email or web address] Not Available 2023 12:21:09 Result Notes None recorded. Problems Name Problem SNOMED Code Status Onset Date Resolution Date Notes Provider Name and Address Organization Details Recorded Time Hypersomnia 71754230 Active 024 Palmira Patel NP [address], [place], [address], [place] - [facility] 4 21:23:24 Obstructive sleep apnea syndrome 03772351 Active 024 Palmira Patel NP [address], [place], [address], [place] - [facility] 4 11:03:47 Problem Notes None recorded. Procedures Surgical History Date Name Laterality Status Provider Name and Address Organization Details Recorded Time cardiac catheterization completed gogo SHUKLA - [facility] 05/09/2024 09:11:24 lumbar spinal fusion completed gogo SHUKLA - [facility] 04/28/2024 16:30:41 arthroscopy of knee completed genaro da sergio [place] - [facility] 04/28/2024 16:33:20 Colonoscopy completed gogo hill [place] - [facility] 04/28/2024 16:33:29 procedure on shoulder completed gogo hill [place] - [facility] 04/28/2024 16:33:41 Cholecystectomy completed gogo hill [place] - [facility] 04/28/2024 16:33:52 Imaging Results None recorded. Procedure Notes None recorded. Medical Equipment None Reported. Allergies Allergen ID Allergen Name Allergen Category Reaction Reaction Severity Criticality Documentation Date Start Date Code Code System Note Provider Name and Address Organization Details Recorded Time 21740 meloxicam medicatio n Not available Not available Not available 04/28/2024 77010 RxNorm gogo coronado, [place] - [facility] 4 16:26:46 74508 amoxicill in medicatio n Not available Not available Not available 04/28/2024 723 RxNorm damion eleonora null, [place] - [facility] 4 11:45:54 54376 Toradol medicatio n Not available Not available Not available 04/28/2024 36434 RxNorm damion eleonora null, [place] - [facility] 4 11:46:02 01661 Depo-Medr ol medicatio n Not available Not available Not available 04/28/2024 41447 RxNorm damion eleonora null, [place] - [facility] 4 11:45:57 Medications Name Sig Start Date Stop Date Status Note LastModified by Organization Details LastModified Time BD Luer-Amilcar Syringe 3 mL 23 x 1 USE as directed TO inject testoster one active Not Available Not Available No t Available cyclobenzap rine 10 mg tablet active Not Available Not Available Not Available amoxicillin 500 mg capsule 04/29 completed Not Available Not Available Not Available atorvastati n 40 mg tablet TAKE ONE TABLET BY MOUTH EVERY DAY 04/29 completed Not Available Not Available Not Available atorvastati n 80 mg tablet TAKE ONE TABLET BY MOUTH AT BEDTIME active Not Available Not Available No t Available gabapentin 600 mg tablet TAKE ONE TABLET BY MOUTH THREE TIMES DAILY AFTER meals active Not Available Not Available No t Available citalopram 40 mg tablet Take 1 tablet every day by oral route. active Not Available Not Available No t Available valacyclovi r 1 gram tablet TAKE ONE TABLET BY MOUTH THREE TIMES DAILY FOR SEVEN DAYS 05/09 completed Not Available Not Available Not Available lisinopril 20 mg tablet Take 1 tablet every day by oral route. 04/29 completed Not Available Not Available Not Available prednisone 20 mg tablet 04/29 completed Not Available Not Available Not Available Alcohol Pads Apply ONE pad EVERY 2 WEEKS TO THE SKIN as needed FOR 30 DAYS, FOR testoster one injection s active Not Available Not Available No t Available clopidogrel 75 mg tablet TAKE ONE TABLET BY MOUTH DAILY active Not Available Not Available No t Available sulfamethox azole 800 mg-trimetho prim 160 mg tablet TAKE ONE TABLET BY MOUTH TWICE DAILY FOR 7 DAYS -- FINISH ALL MEDICINE -- 04/29 completed Not Available Not Available Not Available omeprazole 40 mg capsule,del ayed release Take 1 capsule every day by oral route. active Not Available Not Available No t Available aspirin 81 mg tablet,melissa yed release TAKE ONE TABLET BY MOUTH DAILY active Not Available Not Available No t Available amoxicillin 500 mg tablet TAKE ONE TABLET BY MOUTH THREE TIMES DAILY FOR SEVEN DAYS 08/24 completed Not Available Not Available Not Available tamsulosin 0.4 mg capsule active Not Available Not Available Not Available cephalexin 500 mg capsule TAKE ONE CAPSULE BY MOUTH TWICE DAILY FOR SEVEN DAYS 04/29 completed Not Available Not Available Not Available pantoprazol e 40 mg tablet,melissa yed release TAKE ONE TABLET BY MOUTH DAILY active Not Available Not Available No t Available buspirone 10 mg tablet TAKE ONE TABLET BY MOUTH TWICE DAILY DIRECTED active Not Available Not Available No t Available nitroglycer in 0.4 mg sublingual tablet DISSOLVE 1 TABLET UNDER THE TONGUE EVERY 5 MINUTES NEEDED FOR CHEST PAIN. DO NOT EXCEED A TOTAL OF 3 DOSES IN 15 MINUTES. active Not Available Not Available No t Available diclofenac sodium 75 mg tablet,melissa yed release TAKE ONE TABLET BY MOUTH TWICE DAILY DIRECTED active Not Available Not Available No t Available mupirocin 2 % topical ointment apply SMALL AMOUNT TO affected AREA 2-3 times a DAY NEEDED 05/09 completed Not Available Not Available Not Available metoprolol succinate ER 25 mg tablet,exte nded release 24 hr TAKE ONE TABLET BY MOUTH DAILY active Not Available Not Available No t Available testosteron e cypionate 200 mg/mL intramuscul ar oil inject ONE ML INTRAMUSC ULARLY EVERY 2 WEEK FOR 28 DAYS active Not Available Not Available No t Available BD Integra Syringe 3 mL 23 gauge x 1 USE DIRECTED TO INJECT TESTOSTER ONE active Not Available Not Available No t Available duloxetine 30 mg capsule,del ayed release TAKE ONE CAPSULE BY MOUTH EVERY DAY active Not Available Not Available No t Available Easy Touch Hypodermic Needle 18 gauge x 1 1/2 USE DIRECTED TO DRAW UP TESTOSTER ONE active Not Available Not Available No t Available Lokelma 10 gram oral powder packet take ONE PACKET BY MOUTH THREE TIMES DAILY FOR 2 DAYS active Not Available Not Available No t Available Vitals Date Recorded Body weight Oxygen saturation Oxygen saturation in Arterial blood by Pulse oximetry Heart rate Respiratory rate Body temperature Body mass index (BMI) Body height Systolic And Diastolic Provider Name and Address Organization Details Last Updated DateTime 4 070858. 09 g 96 % 96 % 80 /min 18 /min 97.6 [degF] 33.9 kg/m2 182.88 cm 130/80 mm[Hg] damion crews [facility] 4 11:45:04 Date Recorded Body height Body mass index (BMI) Body weight Oxygen saturation Oxygen saturation in Arterial blood by Pulse oximetry Heart rate Respiratory rate Body temperature Systolic And Diastolic Provider Name and Address Organization Details Last Updated DateTime 4 182.88 cm 33.9 kg/m2 638525. 09 g 99 % 99 % 70 /min 18 /min 96.9 [degF] 128/88 mm[Hg] gogo hill [facility] 4 09:10:22 Date Recorded Body height Body mass index (BMI) Body weight Oxygen saturation Oxygen saturation in Arterial blood by Pulse oximetry Heart rate Respiratory rate Body temperature Systolic And Diastolic Provider Name and Address Organization Details Last Updated DateTime 4 182.88 cm 32.5 kg/m2 467648. 17 g 98 % 98 % 68 /min 18 /min 96.9 [degF] 144/88 mm[Hg] damion crews [facility] 09:21:15 Social History Question Answer Notes LastModified by Organizat ion Details LastModified Time Tobacco Smoking Status Former Smoker gogo sergio coronado [facility] 04/28/2024 16:31:23 Do You Have An Advance Directive? No [email or web address] Information not available 04/28/2024 Is Your Home Air Conditioned? Yes Information not available 04/29/2024 When Did You Quit Smoking? 16+yearssincelastc igarette Information not available 04/29/2024 Where Do You Live? 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 No [email or web address] Information not available 04/28/2024 What Was The Date Of Your Most Recent Tobacco Screening? 08/24/2024 Information not available 08/24/2024 Do You Have Any Pets? Yes Cats And Dogs Information not available 04/29/2024 What Is Your Relationship Status? [email or web address] Information not available 05/09/2024 At What Age Did You Start Smoking Tobacco? 8 Information not available 04/28/2024 Are There Any Smokers In Your House? No [email or web address] Information not available 04/28/2024 How Much Tobacco Do You Smoke? No Quit 24 Years Ago Information not available 04/29/2024 Has Tobacco Cessation Counseling Been Provided? Yes Information not available 04/29/2024 On What Date Was Tobacco Cessation Counseling Provided? 05/09/2024 [email or web address] Information not available 05/09/2024 How Many Years Have You Smoked Tobacco? 30 Information not available 04/29/2024 Have You Recently Traveled Abroad? No [email or web address] Information not available 04/28/2024 Are You Currently In School? No [email or web address] Information not available 05/09/2024 How Many Years Have You Used E-cigarettes Or Vape? 1 Information not available 04/29/2024 Sex: Unknown Functional Status Question Answer Note LastModified by Organizat ion Details LastModified Time Do you or have you ever used any other forms of tobacco or nicotine? Yes [email or web address] Information not available 04/28/2024 Do you or have you ever used smokeless tobacco? Never used smokeless tobacco [email or web address] Information not available 04/28/2024 Are you currently employed? 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 Current user of electronic cigarettes [email or web address] Information not available 04/28/2024 Mental Status None recorded. Family History Relationship Description Onset Age of this Age Resolved Age Notes LastModified by Organization Details LastModified Time Mother Diabetes mellitus [email or web address] Not available 04/28 16:30:54 Father Malignant tumor of stomach [email or web address] Not available 04/28 16:31:05 Medical History Condition Response Arthritis Y Acid Reflux (GERD) Y Depression Y High Cholesterol Y Hypertension Y Past Encounters Encounter ID Performer Location Encounter Start Date Encounter Closed Date Diagnosis/Indication Diagnosis SNOMED-CT Code Diagnosis ICD10 Code Diagnosis Note [id number] Leonel Traylor [address] [place] [address] [place] [address] 0 04/29/2024 11:24:13 04/29/2024 12:10:08 Hypersomnia 57323189 G47.10 [id number] Leonel Traylor [address] [place] [address] [place] [address] 0 05/09/2024 08:44:08 05/09/2024 09:38:38 Hypersomnia 83436618 G47.10 Obstructiv e sleep apnea syndrome 75814501 G47.33 [id number] Leonel Traylor [address] [place] [address] [place] [address] 0 08/24/2024 09:14:15 08/24/2024 10:49:12 Hypersomnia 23263915 G47.10 Obstructiv e sleep apnea syndrome 74180006 G47.33 Health Concerns Section Related Observation LastModified by Organization Detai ls LastModified Time None Recorded Concern Status LastModified by Organization Details LastModified Time None Recorded Advance Directives Directive N: Payers Insurance Date Sequence Insurance Name Policy Number Policy Tripp Covered Member ID Tripp Member ID Guarantor Name 12/19/2024 1 [place] [id number] 1 Thierno Azul [id number] Thierno Azul Notes Date Note Type Note Provider Name and Address Organization Details Recorded Time 04/29/2024 text/html This is a 58-year-old male presenting for evaluation of sleep apnea. He was referred by Francoise Galeas. The patient reports symptoms of hypersomnia, witnessed apneas, snoring, frequent nocturnal awakenings, and restlessness. He has experienced shortness of breath for the past four months, which was resolved following the placement of two cardiac stents on Thursday.He is not currently using any inhaled respiratory medications. The patient is a former smoker 2 ppd and quit 30 years ago. 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 He denies having any fever, chills, nausea, vomiting, or diarrhea. Palmira Patel NP [address], [place], [address], [facility] 05/01/2024 21:24:41 05/09/2024 text/html This is a 58 year-old male who presents to the office today to review the results of a home sleep study completed on 05/03/2024 that revealed severe AMERICA with AHI: 45.1, snoring, and sleep-related hypoxia with a nazia of 66% and maximum heart rate 97 BPM.I discussed the results of the study with the patient and proposed treatment plan. Since last visit, patient had a cardiac cath 1 week ago with two stents placed. He notes improved shortness of breath since stenting. Denies fever, chills, chest pain, nausea, vomiting, diarrhea. Palmira Patel NP [address], [place], [address], [facility] 05/09/2024 11:55:54 08/24/2024 text/html This 58 year-old male returns to the office for the ongoing management of AMERICA. Patient continues to use his CPAP nightly and notes positive benefits of use as evidenced by improved sleep quality and improved daytime fatigue. Compliance report is generated for the dates of 07/22/2024 through 08/20/2024 that revealed / days 57% compliance overall, 11 days (37%) compliance greater than 4 hours, AHI 2.8 and median leaks 1.2 L/min. Compliance data was discussed during today's visit.Denies fever, chills, chest pain, nausea, vomiting, diarrhea. Palmira Patel, TONYA [address], [place], [address], [facility] 08/24/2024 12:55:52
--- OUTSIDE RECORDS SUMMARY | 2025-03-27 10:11 | XMS_ITS | Data Portability ---
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 Medications, charts and records reviewed in full today. - EKG today reveals sinus rhythm with one PAC, rate of 70 beats per minute, incomplete right bundle-branch block, abnormal EKG. Blood pressure 120/88, heart rate 73, weight 252 lb. Oxygen saturation 98% on room air. - LAST ECHO: 04/2024 revealed an LVEF of 65% to 70% with mild LVH. Mild aortic insufficiency. Trivial mitral insufficiency. Bicuspid aortic valve with mild restriction across the valve. LAST ISCHEMIC EVAL: 11/2022 revealed normal exercise EKG, excellent functional capacity, low risk Draper treadmill score, and normal perfusion imaging. Normal LV systolic function at 72%. The patient exercised for 9.5 minutes on the Ignacio protocol reaching 85% of maximum age predicted heart rate, and 11.1 metabolic equivalents. Non limiting chest discomfort at peak exercise. LAST HEART CATH: 04/2024 revealed severe stenosis in the proximal/mid 1st diagonal branch of the LAD with normal LV systolic function LVEDP. Successful PTCA and stenting of the proximal/mid 1st diagonal branch of the LAD. LAST CNI: 07/15/2022 with mild stenosis. Thyroid nodule noted. US THYROID: 08/2022 borderline thyromegaly 1.2 cm TR three lesion of the lower pole right gland. No further workup or follow-up indicated. CTA CHEST: 10/2023 revealed 4.5 cm fusiform aneurysmal dilatation of the ascending thoracic aorta increased from 4.3 cm on prior study. Bicuspid aortic valve. Borderline cardiac enlargement with evidence of LVH and moderate coronary artery calcifications. 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 Profound hepatic steatosis. PS04/2024 Severe [place]. - Plan: REX. Carotid ultrasound. Continue Plavix and aspirin. Follow-up in six weeks. I do not find any reason that the patient could not take testosterone replacement therapy to achieve natural testosterone levels under medical supervision. - CTA chest in 10/2024 for thoracic aortic aneurysm. - -Continue other current medications. -Continue aggressive risk factor modification. -Recommend LDL less than 70. -Encouraged regular exercise and activity. - This note was dictated using [employer] software. If something is unclear, or does not make sense, please do not hesitate to contact our office at [phone] for clarification. Not available 05/09/2024 17:22:57 06/21/2024 06/21/2024 Patient Education was printed, I have reviewed the Past Medical, Family, and Social Histories along with ROS and all orders in today's record, and have noted any changes. Medications, charts and records reviewed in full today. - Blood pressure 112/78, heart rate 67, weight 247.8 lb. Oxygen saturation is 96% on room air. - REX: 05/2024 Increase in pressures in the legs suggesting peripheral arterial calcification. LAST ECHO: 04/2024 revealed an LVEF of 65% to 70% with mild LVH. Mild aortic insufficiency. Trivial mitral insufficiency. Bicuspid aortic valve with mild restriction across the valve. LAST ISCHEMIC EVAL: 11/2022 revealed normal exercise EKG, excellent functional capacity, low risk Draper treadmill score, and normal perfusion imaging. Normal LV systolic function at 72%. The patient exercised for 9.5 minutes on the Ignacio protocol reaching 85% of maximum age predicted heart rate, and 11.1 metabolic equivalents. Non limiting chest discomfort at peak exercise. LAST HEART CATH: 04/2024 revealed severe stenosis in the proximal/mid 1st diagonal branch of the LAD with normal LV systolic function LVEDP. Successful PTCA and stenting of the proximal/mid 1st diagonal branch of the LAD. LAST CNI: 05/2024 revealed stable 1% to 39% ICA stenosis bilaterally. Likely closer to the lower end of the range. US THYROID: 08/2022 borderline thyromegaly 1.2 cm TR three lesion of the lower pole right gland. No further workup or follow-up indicated. CTA CHEST: 10/2023 revealed 4.5 cm fusiform aneurysmal dilatation of the ascending thoracic aorta increased from 4.3 cm on prior study. Bicuspid aortic valve. Borderline cardiac enlargement with evidence of LVH and moderate coronary artery calcifications. 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 Profound hepatic steatosis. PS04/2024 Severe [place]. - Risks and benefits and alternatives of lower extremity angiography were discussed in full today. These include, but are not limited to, injury to the blood vessel, fistula, pseudoaneurysm, hematoma, stroke, distal embolization, myocardial infarction, and infection. Meds and chart reviewed in full today. - Plan: Lower extremity angiography. Labs. Follow-up one week after procedure. - CTA chest in 10/2024 for thoracic aortic aneurysm. - -Continue other current medications. -Continue aggressive risk factor modification. -Recommend LDL less than 70. -Encouraged regular exercise and activity. - This note was dictated using [employer] software. If something is unclear, or does not make sense, please do not hesitate to contact our office at [phone] for clarification. Not available 06/21/2024 17:58:24 07/06/2024 07/06/2024 Patient Education was printed, I have reviewed the Past Medical, Family, and Social Histories along with ROS and all orders in today's record, and have noted any changes. Medications, charts and records reviewed in full today. - Blood pressure 110/64, heart rate 85, weight 252 lb. Oxygen saturation is 93% on room air. - RUNOFF: 06/2024 Normal peripheral vasculature, aorta, and renal arteries. No PVD. REX: 05/2024 Increase in pressures in the legs suggesting peripheral arterial calcification. LAST ECHO: 04/2024 revealed an LVEF of 65% to 70% with mild LVH. Mild aortic insufficiency. Trivial mitral insufficiency. Bicuspid aortic valve with mild restriction across the valve. LAST ISCHEMIC EVAL: 11/2022 revealed normal exercise EKG, excellent functional capacity, low risk Draper treadmill score, and normal perfusion imaging. Normal LV systolic function at 72%. The patient exercised for 9.5 minutes on the Ignacio protocol reaching 85% of maximum age predicted heart rate, and 11.1 metabolic equivalents. Non limiting chest discomfort at peak exercise. LAST HEART CATH: 04/2024 revealed severe stenosis in the proximal/mid 1st diagonal branch of the LAD with normal LV systolic function LVEDP. Successful PTCA and stenting of the proximal/mid 1st diagonal branch of the LAD. LAST CNI: 05/2024 revealed stable 1% to 39% ICA stenosis bilaterally. Likely closer to the lower end of the range. US THYROID: 08/2022 borderline thyromegaly 1.2 cm TR three lesion of the lower pole right gland. No further workup or follow-up indicated. CTA CHEST: 10/2023 revealed 4.5 cm fusiform aneurysmal dilatation of the ascending thoracic aorta increased from 4.3 cm on prior study. Bicuspid aortic valve. Borderline cardiac enlargement with evidence of LVH and moderate coronary artery calcifications. 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 Profound hepatic steatosis. PS04/2024 Severe [place]. - Plan: Labs. Neurology referral. Follow-up in 2 to 3 months. EKG at follow-up. - CTA chest in 10/2024 for thoracic aortic aneurysm. - -Continue other current medications. -Continue aggressive risk factor modification. -Recommend LDL less than 70. -Encouraged regular exercise and activity. - This note was dictated using [employer] software. If something is unclear, or does not make sense, please do not hesitate to contact our office at [phone] for clarification. Not available 07/06/2024 15:41:32 09/27/2024 09/27/2024 Patient Education was printed, I have reviewed the Past Medical, Family, and Social Histories along with ROS and all orders in today's record, and have noted any changes. Medications, charts and records reviewed in full today. - Blood pressure 142/78, rate 75, weight 150.8 lb. Oxygen saturation 94% on room air. - RUNOFF: 06/2024 Normal peripheral vasculature, aorta, and renal arteries. No PVD. REX: 05/2024 Increase in pressures in the legs suggesting peripheral arterial calcification. LAST ECHO: 04/2024 revealed an LVEF of 65% to 70% with mild LVH. Mild aortic insufficiency. Trivial mitral insufficiency. Bicuspid aortic valve with mild restriction across the valve. LAST ISCHEMIC EVAL: 11/2022 revealed normal exercise EKG, excellent functional capacity, low risk Draper treadmill score, and normal perfusion imaging. Normal LV systolic function at 72%. The patient exercised for 9.5 minutes on the Ignacio protocol reaching 85% of maximum age predicted heart rate, and 11.1 metabolic equivalents. Non limiting chest discomfort at peak exercise. LAST HEART CATH: 04/2024 revealed severe stenosis in the proximal/mid 1st diagonal branch of the LAD with normal LV systolic function LVEDP. Successful PTCA and stenting of the proximal/mid 1st diagonal branch of the LAD. LAST CNI: 05/2024 revealed stable 1% to 39% ICA stenosis bilaterally. Likely closer to the lower end of the range. US THYROID: 08/2022 borderline thyromegaly 1.2 cm TR three lesion of the lower pole right gland. No further workup or follow-up indicated. CTA CHEST: 10/2023 revealed 4.5 cm fusiform aneurysmal dilatation of the ascending thoracic aorta increased from 4.3 cm on prior study. Bicuspid aortic valve. Borderline cardiac enlargement with evidence of LVH and moderate coronary artery calcifications. 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 Profound hepatic steatosis. PS04/2024 Severe [place]. - Plan: Repeat CTA chest, aorta protocol. Laboratory studies. Follow-up in 8 to 10 weeks. Discuss atorvastatin dosage in follow-up. - -Continue other current medications. -Continue aggressive risk factor modification. -Recommend LDL less than 70. -Encouraged regular exercise and activity. - This note was dictated using [employer] software. If something is unclear, or does not make sense, please do not hesitate to contact our office at [phone] for clarification. Not available 09/27/2024 17:19:24 12/01/2024 12/01/2024 Patient Education was printed, I have reviewed the Past Medical, Family, and Social Histories along with ROS and all orders in today's record, and have noted any changes. Medications, charts and records reviewed in full today. - Blood pressure 122/68, heart rate 77, oxygen saturation 96% on room air. Weight 260.4 lb. - RUNOFF: 06/2024 Normal peripheral vasculature, aorta, and renal arteries. No PVD. REX: 05/2024 Increase in pressures in the legs suggesting peripheral arterial calcification. LAST ECHO: 04/2024 revealed an LVEF of 65% to 70% with mild LVH. Mild aortic insufficiency. Trivial mitral insufficiency. Bicuspid aortic valve with mild restriction across the valve. LAST ISCHEMIC EVAL: 11/2022 revealed normal exercise EKG, excellent functional capacity, low risk Draper treadmill score, and normal perfusion imaging. Normal LV systolic function at 72%. The patient exercised for 9.5 minutes on the Ignacio protocol reaching 85% of maximum age predicted heart rate, and 11.1 metabolic equivalents. Non limiting chest discomfort at peak exercise. LAST HEART CATH: 04/2024 revealed severe stenosis in the proximal/mid 1st diagonal branch of the LAD with normal LV systolic function LVEDP. Successful PTCA and stenting of the proximal/mid 1st diagonal branch of the LAD. LAST CNI: 05/2024 revealed stable 1% to 39% ICA stenosis bilaterally. Likely closer to the lower end of the range. US THYROID: 08/2022 borderline thyromegaly 1.2 cm TR three lesion of the lower pole right gland. No further workup or follow-up indicated. CTA CHEST: 09/2024 revealed stable 4.5 cm fusiform aneurysmal of the ascending thoracic aorta, bicuspid aortic valve again noted. Mild emphysema without evidence of acute disease or pathologic pulmonary nodularity. Stable mediastinal and hilar lymphadenopathy . Stable. PS04/2024 Severe [place]. - Plan: Discussed decreasing atorvastatin for a short time to determine if leg pain improves with lower dose of statin therapy. Discussed risk factor modification Recommend heart healthy diet and exercise as tolerated. Follow-up in six months. EKG at follow-up. Total service time 33 minutes. - -Continue other current medications. -Continue aggressive risk factor modification. -Recommend LDL less than 70. -Encouraged regular exercise and activity. - This note was dictated using [employer] software. If something is unclear, or does not make sense, please do not hesitate to contact our office at [phone] for clarification. Not available 12/01/2024 18:43:02 Plan of Treatment Reminders Order Date Submit Date Provider Last Modified By Organization Details Last Modified Time Details Appointments OV EST 30 2024 02:30P Danya SOLIS NP, S Not available Not available Not available Lab creatinin e w/ estimated GFR (eGFR), serum or plasma [address] (Registration ), [address], [place], [address], 10/04/2024 07:28:02 lipid panel w/ direct LDL, serum [address] (Registration ), [address], [place], [address], 10/04/2024 07:28:11 BMP, serum or plasma [address] (Registration ), [address], [place], [address], 07/13/2024 08:29:52 magnesium , serum or plasma [address] (Registration ), [address], [place], [address], 07/13/2024 08:30:02 CBC w/ auto diff [address] (Registration ), [address], [place], [address], 07/13/2024 08:30:13 vitamin D, 25-hydrox y, total, serum [address] (Registration ), [address], [place], [address], 07/13/2024 08:30:23 TSH + free T4, serum [address] (Registration ), [address], [place], [address], 07/13/2024 08:30:35 testoster one, free + total, serum [address] (Registration ), [address], [place], [address], 07/13/2024 08:30:45 BMP, serum or plasma 2023 [facility] (Registration ), [address], [place], [address], 06/25/2024 11:56:09 CBC w/ auto diff 2023 [facility] (Registration ), [address], [place], [address], 06/25/2024 11:15:26 lipid panel w/ direct LDL, serum [address] (Registration ), [address], [place], [address], 06/29/2024 14:57:[address] referral [address] [facility], [address] [place] [address], [place], [address], 08/03/2024 09:00:48 Procedures None recorded. Surgeries None recorded. Imaging CT, angiogram , thoracic aorta, w/wo contrast 2024 025 kamaljit Danielson (Centralized Scheduling), [facility] [place], [address], 10/04/2024 07:27:52 RF, angiogram , abdominal aorta, w/ runoff [facility] [address], [place], [address], 07/05/2024 07:54:22 ankle brachial index, complete 2023 024 AINSLEY Danielson (Centralized Scheduling), [facility] [place], [address], 05/09/2024 10:59:49 US, duplex, carotid artery 2023 024 KELL Danielson (Centralized Scheduling), [facility] [place], [address], 05/26/2024 16:25:11 electroca rdiogram 2023 024 [facility], [address], [place], [address], 05/09/2024 16:06:58 Medication Orders None recorded. Patient TargetsNo targets recorded. Patient InstructionsNo instructions recorded. Reason for Referral Neurologist Referral for Antoine ropathy Definitive elauation and management of neuropathy. Referring Physician: Cullen Solis, Cardiology, Encounter Date: 07/06/2024 Results Created Date Observation Date Name Description Value Unit Range Abnormal Flag Note LastModifiedBy Organization Detail LastModifiedTime 04/23/20 24 04/23/2024 CBC W/AUT O DIFFE RENTI AL note SEE NOTE Order ing Provi tigist: Jake Sarkar is TELEPHONE ENGINEER Not Available [place] [address] [place], [address], 04/23/2024 10:12:21 04/23/20 24 04/23/2024 CBC W/AUT O DIFFE RENTI AL white blood cell 6.1 10e3/ uL 4.5-13 .0 normal Not Available [place] [address], [place], [address], 04/23/2024 10:12:21 04/23/20 24 04/23/2024 CBC W/AUT O DIFFE RENTI AL red blood cell 4.04 10e6/ uL 4.10-5 .70 low Not Available [place] [address], [place], [address], 04/23/2024 10:12:21 04/23/20 24 04/23/2024 CBC W/AUT O DIFFE RENTI AL hemoglobin 12.4 g/dL 12.0-1 6.9 normal Not Available [address]endoza, [place], [address], 04/23/2024 10:12:21 04/23/2004/23/2024 CBC W/AUT O DIFFE RENTI AL hematocrit 34.7 % 36.0-4 9.0 low Not Available [place] [address], [place], [address], 04/23/2024 10:12:21 04/23/2004/23/2024 CBC W/AUT O DIFFE RENTI AL mean cell volume 86 fL 78.0-9 8.0 normal Not Available [place] [address], [place], [address], 04/23/2024 10:12:21 04/23/20 24 04/23/2024 CBC W/AUT O DIFFE RENTI AL mean cell HGB 30.7 pg 25.0-3 5.0 normal Not Available [place] [address], [place], [address], 04/23/2024 10:12:21 04/23/20 24 04/23/2024 CBC W/AUT O DIFFE RENTI AL mean cell HGB concentratio n 35.7 g/dL 31.0-3 6.0 normal Not Available [address] Yanira Mendoza, [place], [address], 04/23/2024 10:12:21 04/23/20 24 04/23/2024 CBC W/AUT O DIFFE RENTI AL red cell distribution width 12.3 % 11.0-1 5.0 normal Not Available [address] Yanira Mendoza, [place], [address], 04/23/2024 10:12:21 04/23/20 24 04/23/2024 CBC W/AUT O DIFFE RENTI AL platelet count 210 10e3/ uL 150-40 0 normal Not Available [address] Yanira Mendoza, [place], [address], 04/23/2024 10:12:21 04/23/2004/23/2024 CBC W/AUT O DIFFE RENTI AL immature granulocyte % 0 0-1 normal Not Available [place] [address], [place], [address], 04/23/2024 10:12:21 04/23/20 24 04/23/2024 CBC W/AUT O DIFFE RENTI AL neutrophil % 58 % 35-75 normal Not Available [address] Yanira Mendoza, [place], [address], 04/23/2024 10:12:21 04/23/20 24 04/23/2024 CBC W/AUT O DIFFE RENTI AL lymphocyte % 26 % 10-50 normal Not Available [address] Yanira Mendoza, [place], [address], 04/23/2024 10:12:21 04/23/20 24 04/23/2024 CBC W/AUT O DIFFE RENTI AL monocyte % 11 % 0-15 normal Not Available [address] Yanira Mendoza, [place], [address], 04/23/2024 10:12:21 04/23/20 24 04/23/2024 CBC W/AUT O DIFFE RENTI AL eosinophil % 4 % 0-5 normal Not Available [address] Yanira Mendoza, [place], [address], 04/23/2024 10:12:21 04/23/2004/23/2024 CBC W/AUT O DIFFE RENTI AL basophil % 1 % 0-5 normal Not Available [address] Yanira Mendoza, [place], [address], 04/23/2024 10:12:21 04/23/20 24 04/23/2024 CBC W/AUT O DIFFE RENTI AL immature granulocyte # 0.02 x1000 /uL 0-0.05 normal Not Available [address] Yanira Mendoza, [place], [address], 04/23/2024 10:12:21 04/23/20 24 04/23/2024 CBC W/AUT O DIFFE RENTI AL neutrophil # 3.49 x1000 /uL 1.50-8 .00 normal Not Available [address] Yanira Mendoza, [place], [address], 04/23/2024 10:12:21 04/23/20 24 04/23/2024 CBC W/AUT O DIFFE RENTI AL lymphocyte # 1.57 x1000 /uL 1.20-5 .20 normal Not Available [address] Yanira Mendoza, [place], [address], 04/23/2024 10:12:21 04/23/20 24 04/23/2024 CBC W/AUT O DIFFE RENTI AL monocyte # 0.68 x1000 /uL 0.30-0 .90 normal Not Available [address] Yanira Mendoza, [place], [address], 04/23/2024 10:12:21 04/23/20 24 04/23/2024 CBC W/AUT O DIFFE RENTI AL eosinophil # 0.27 x1000 /uL 0.00-0 .50 normal Not Available [address] Yanira Mendoza, [place], [address], 04/23/2024 10:12:21 04/23/20 24 04/23/2024 CBC W/AUT O DIFFE RENTI AL basophil # 0.05 x1000 /uL 0.00-0 .30 normal Not Available [address] Yanira Mendoza, [place], [address], 04/23/2024 10:12:21 04/23/20 24 04/23/2024 CBC W/AUT O DIFFE RENTI AL NRBC automated 0.0 /100_ WBC Not Available [address] Yanira Mendoza, [place], [address], 04/23/2024 10:12:21 04/23/20 24 04/23/2024 CBC W/AUT O DIFFE RENTI AL performing lab SEE NOTE - [address] [facility] [address] Not Available [address] Yanira Mendoza, [place], [address], 04/23/2024 10:12:21 04/23/2004/23/2024 COMP METAB OLIC PANEL note SEE NOTE Order ing Provi tigist: Jake Sarkar is TELEPHONE ENGINEER Not Available [address]endoza, [place], [address], 04/23/2024 12:52:04 04/23/20 24 04/23/2024 COMP METAB OLIC PANEL sodium 136 mmol/ L 136-14 5 normal Not Available [place] [address], [place], [address], 04/23/2024 12:52:04 04/23/20 24 04/23/2024 COMP METAB OLIC PANEL potassium 5.0 mmol/ L 3.5-5. 1 normal Not Available [place] [address], [place], [address], 04/23/2024 12:52:04 04/23/20 24 04/23/2024 COMP METAB OLIC PANEL chloride 99 mmol/ L 98-107 normal Not Available [place] [address], [place], [address], 04/23/2024 12:52:04 04/23/20 24 04/23/2024 COMP METAB OLIC PANEL carbon dioxide 26 mmol/ L 24-33 normal Not Available [address] Yanira Mendoza, [place], [address], 04/23/2024 12:52:04 04/23/20 24 04/23/2024 COMP METAB OLIC PANEL anion gap 16.0 mmol/ L 10-20 normal Not Available [place] [address], [place], [address], 04/23/2024 12:52:04 04/23/20 24 04/23/2024 COMP METAB OLIC PANEL glucose 92 mg/dL 70-99 normal Not Available [address] Mendoza, [place], [address], 04/23/2024 12:52:04 04/23/20 24 04/23/2024 COMP METAB OLIC PANEL blood urea nitrogen 33 mg/dL 7-18 high Not Available [place] [address], [place], [address], 04/23/2024 12:52:04 04/23/20 24 04/23/2024 COMP METAB OLIC PANEL creatinine 1.39 mg/dL 0.70-1 .30 high Not Available [address] , [place], [address], 04/23/2024 12:52:04 04/23/20 24 04/23/2024 COMP METAB OLIC PANEL GFR (estimated) 59 mL/mi n >60 low [IM OZZIE NT]: The 2020 CKD-E PI equat ion is now the recom yolis d stand maxi. This versi on does not inclu de race, as do the 2008 and 2011 CKD-E PI creat inine and creat inine -cyst atin C equat ions. Pleas e note that the eGFR now repor jax is gener ated by the new 2020 CKD-E PI equat ion, which decre ases the eGFR for black s by up to 10% and incre ases the eGFR for non-b lacks by up to 10% in yohana rison to the old equat ion. To yohana re a legac y eGFR to a curre nt value , a 2008 CKD-E PI calcu lator is easil y searc hable on the inter net. Calcu lated GFR: This calcu lated GFR is advoc ated by the Natio nal Kidne y Found ation to be used as an indic ator of Chron ic Kidne y Disea se (CKD) . 5 Stage s of Chron ic Kidne y Disea se. Stage 1 90 mL/mi n or more Healt hy kidne ys or Kidne y damag e with genna l or high GFR detai ls Stage 2 60 to 89 mL/mi n Kidne y damag e and mild decre ase in GFR detai ls Stage 3 30 to 59 mL/mi n Moder ate decre ase in GFR detai ls Stage 4 15 to 29 mL/mi n Sever e decre ase in GFR detai ls Stage 5 Less than 15 mL/mi n On dialy sis or Kidne y failu re Patie nt's clini kyung statu s must be consi dered for the care of your patie nt. Not Available [address] [place], [address], 04/23/2024 12:52:04 04/23/20 24 04/23/2024 COMP METAB OLIC PANEL BUN/creatini ne ratio 23 12-20 high Not Available [address] , [place], [address], 04/23/2024 12:52:04 04/23/20 24 04/23/2024 COMP METAB OLIC PANEL total protein 7.4 g/dL 6.4-8. 2 normal Not Available [address] , [place], [address], 04/23/2024 12:52:04 04/23/20 24 04/23/2024 COMP METAB OLIC PANEL albumin 3.8 g/dL 3.4-5. 0 normal Not Available [address] Yanira Mendoza, [place], [address], 04/23/2024 12:52:04 04/23/20 24 04/23/2024 COMP METAB OLIC PANEL globulin 3.6 g/dL 1.5-4. 0 normal Not Available [address] Yanira Mendoza, [place], [address], 04/23/2024 12:52:04 04/23/20 24 04/23/2024 COMP METAB OLIC PANEL albumin/glob ulin ratio 1.1 0.5-2. 0 normal Not Available [address] [place], [address], 04/23/2024 12:52:04 04/23/20 24 04/23/2024 COMP METAB OLIC PANEL calcium 9.4 mg/dL 8.5-10 .1 normal Not Available [address] [place], [address], 04/23/2024 12:52:04 04/23/20 24 04/23/2024 COMP METAB OLIC PANEL osmolality serum calculated 278 mOsm/ kg 272-28 8 normal Not Available [address] , [place], [address], 04/23/2024 12:52:04 04/23/20 24 04/23/2024 COMP METAB OLIC PANEL bilirubin total 0.5 mg/dL 0.2-1. 0 normal Use of this assay is not recom yolis d for patie nts under going treat ment with Eltro mbopa g due to the poten tial for false ly eleva jax resul ts. Not Available [address] , [place], [address], 04/23/2024 12:52:04 04/23/20 24 04/23/2024 COMP METAB OLIC PANEL SGOT/AST 56 U/L 15-37 high Not Available [address] , [place], [address], 04/23/2024 12:52:04 04/23/20 24 04/23/2024 COMP METAB OLIC PANEL SGPT/ALT 82 U/L 16-63 high Not Available [address] , [place], [address], 04/23/2024 12:52:04 04/23/20 24 04/23/2024 COMP METAB OLIC PANEL alkaline phosphatase total 59 U/L 46-116 normal Not Available [address] , [place], [address], 04/23/2024 12:52:04 04/23/20 24 04/23/2024 COMP METAB OLIC PANEL performing lab SEE NOTE - [facility] [address] [facility] [address] Not Available [address] [place], [address], 04/23/2024 12:52:04 04/23/20 24 04/23/2024 LIPID PANEL note SEE NOTE Order ing Provi tigist: Jake Sarkar is TELEPHONE ENGINEER Not Available [address] [place], [address], 04/23/2024 12:52:04 04/23/20 24 04/23/2024 LIPID PANEL triglyceride s 178 mg/dL < 150 high Natio nal Eloina stero l Educa tion Progr am (NCEP ) Guide lines : Genna l < 150 mg/dL Borde rline 150 - 199 mg/dL High 200 - 499 mg/dL Very High >or= 500 mg/dL Not Available [address] [place], [address], 04/23/2024 12:52:04 04/23/20 24 04/23/2024 LIPID PANEL cholesterol 183 mg/dL < 200 normal Natio nal Eloina stero l Educa tion Progr am (NCEP ) Guide lines : Viet able < 200 mg/dL Borde rline Risk 200 - 239 mg/dL High Risk >or= 240 mg/dL Not Available [address] [place], [address], 04/23/2024 12:52:04 04/23/20 24 04/23/2024 LIPID PANEL HDL cholesterol 42 mg/dL > 60 low Natio nal Eloina stero l Educa tion Progr am Adult Treat ment Panel III (NCEP -ATP III) Guide lines : < 40 mg/dl : Low HDL-C holes terol >or= 60 mg/dl : High HDL-C holes terol Not Available [address] [place], [address], 04/23/2024 12:52:04 04/23/20 24 04/23/2024 LIPID PANEL LDL cholesterol 105 mg/dL < 100 high Natio nal Eloina stero l Educa tion Progr am (NCEP ) Guide lines : Optim al < 100 mg/dL Near/ Above Optim al 100 - 129 mg/dL Borde rline High 130 - 159 mg/dL High 160 - 189 mg/dL Very High >or= 190 mg/dL Not Available [address] , [place], [address], 04/23/2024 12:52:04 04/23/20 24 04/23/2024 LIPID PANEL performing lab SEE NOTE ML - [facility] [address] [facility] [address] Not Available [address] , [place], [address], 04/23/2024 12:52:04 04/26/2004/26/2024 BASIC METAB OLIC PANEL note See Note Order ing Provi tigist: Melissa deleon MD Not Available [address] , [place], [address], 04/26/2024 07:05:51 04/26/20 24 04/26/2024 BASIC METAB OLIC PANEL sodium 139 mmol/ L 136-14 5 normal Not Available [address] Yanira Mendoza, [place], [address], 04/26/2024 07:05:51 04/26/20 24 04/26/2024 BASIC METAB OLIC PANEL potassium 4.6 mmol/ L 3.5-5. 1 normal Not Available [address] Yanira Mendoza, [place], [address], 04/26/2024 07:05:51 04/26/20 24 04/26/2024 BASIC METAB OLIC PANEL chloride 104 mmol/ L 98-107 normal Not Available [address] [place], [address], 04/26/2024 07:05:51 04/26/20 24 04/26/2024 BASIC METAB OLIC PANEL carbon dioxide 28 mmol/ L 24-33 normal Not Available [address] [place], [address], 04/26/2024 07:05:51 04/26/20 24 04/26/2024 BASIC METAB OLIC PANEL anion gap 11.6 mmol/ L 10-20 normal Not Available [address] , [place], [address], 04/26/2024 07:05:51 04/26/20 24 04/26/2024 BASIC METAB OLIC PANEL glucose 94 mg/dL 70-99 normal Not Available [address] , [place], [address], 04/26/2024 07:05:51 04/26/20 24 04/26/2024 BASIC METAB OLIC PANEL blood urea nitrogen 23 mg/dL 7-18 high Not Available [address] , [place], [address], 04/26/2024 07:05:51 04/26/20 24 04/26/2024 BASIC METAB OLIC PANEL creatinine 1.23 mg/dL 0.70-1 .30 normal Not Available [address] , [place], [address], 04/26/2024 07:05:51 04/26/20 24 04/26/2024 BASIC METAB OLIC PANEL GFR (estimated) 68 mL/mi n >60 normal [IM OZZIE NT]: The 2020 CKD-E PI equat ion is now the recom yolis d stand maxi. This versi on does not inclu de race, as do the 2008 and 2011 CKD-E PI creat inine and creat inine -cyst atin C equat ions. Eliezer e note that the eGFR now repor jax is gener ated by the new 2020 CKD-E PI equat ion, which decre ases the eGFR for black s by up to 10% and incre ases the eGFR for non-b lacks by up to 10% in yohana rison to the old equat ion. To yohana re a legac y eGFR to a curre nt value , a 2009 CKD-E PI calcu lator is easil y seaveelyne hable on the inter net. Calcu lated GFR: This calcu lated GFR is advoc ated by the [facility] ation to be used as an indic ator of Chron ic Kidne y Disea se (CKD) . 5 Stage s of Chron ic Kidne y Disea se. Stage 1 90 mL/mi n or more Healt hy kidne ys or Kidne y damag e with genna l or high GFR detai ls Stage 2 60 to 89 mL/mi n Kidne y damag e and mild decre ase in GFR detai ls Stage 3 30 to 59 mL/mi n Moder ate decre ase in GFR detai ls Stage 4 15 to 29 mL/mi n Sever e decre ase in GFR detai ls Stage 5 Less than 15 mL/mi n On dialy sis or Kidne y failu re Patie nt's clini kyung statu s must be consi dered for the care of your patie nt. Not Available [address] , [place], [address], 04/26/2024 07:05:51 04/26/20 24 04/26/2024 BASIC METAB OLIC PANEL BUN/creatini ne ratio 18 12-20 normal Not Available [address] , [place], [address], 04/26/2024 07:05:51 04/26/20 24 04/26/2024 BASIC METAB OLIC PANEL calcium 8.8 mg/dL 8.5-10 .1 normal Not Available [address] , [place], [address], 04/26/2024 07:05:51 04/26/20 24 04/26/2024 BASIC METAB OLIC PANEL osmolality serum calculated 281 mOsm/ kg 272-28 8 normal Not Available [address] , [place], [address], 04/26/2024 07:05:51 04/26/20 24 04/26/2024 BASIC METAB OLIC PANEL performing lab see note - [facility] [address] [facility] [address] Not Available [address] , [place], [address], 04/26/2024 07:05:51 04/26/20 24 04/26/2024 LIPID PANEL note See Note Order ing Provi tigist: Melissa deleon MD Not Available [address] , [place], [address], 04/26/2024 07:05:52 04/26/20 24 04/26/2024 LIPID PANEL triglyceride s 169 mg/dL < 150 high Natio nal Eloina stero l Educa tion Progr am (NCEP ) Guide lines : Genna l < 150 mg/dL Borde rline 150 - 199 mg/dL High 200 - 499 mg/dL Very High >or= 500 mg/dL Not Available [address] , [place], [address], 04/26/2024 07:05:52 04/26/20 24 04/26/2024 LIPID PANEL cholesterol 188 mg/dL < 200 normal Natio nal Eloina stero l Educa tion Progr am (NCEP ) Guide lines : Viet able < 200 mg/dL Borde rline Risk 200 - 239 mg/dL High Risk >or= 240 mg/dL Not Available [address] , [place], [address], 04/26/2024 07:05:52 04/26/20 24 04/26/2024 LIPID PANEL HDL cholesterol 36 mg/dL > 60 low Natio nal Eloina stero l Educa tion Progr am Adult Treat ment Panel III (NCEP -ATP III) Guide lines : < 40 mg/dl : Low HDL-C holes terol >or= 60 mg/dl : High HDL-C holes terol Not Available [address] , [place], [address], 04/26/2024 07:05:52 04/26/20 24 04/26/2024 LIPID PANEL LDL cholesterol 118 mg/dL < 100 high Natio nal Eloina stero l Educa tion Progr am (NCEP ) Guide lines : Optim al < 100 mg/dL Near/ Above Optim al 100 - 129 mg/dL Borde rline High 130 - 159 mg/dL High 160 - 189 mg/dL Very High >or= 190 mg/dL Not Available [address] , [place], [address], 04/26/2024 07:05:52 04/26/20 24 04/26/2024 LIPID PANEL performing lab see note ML - [facility] [address] [facility] [address] Not Available [address] , [place], [address], 04/26/2024 07:05:52 04/26/20 24 04/26/2024 CBC W/AUT O DIFFE RENTI AL note See Note Order ing Provi tigist: Melissa deleon MD Not Available [address] , [place], [address], 04/26/2024 07:13:12 04/26/20 24 04/26/2024 CBC W/AUT O DIFFE RENTI AL white blood cell 5.4 10e3/ uL 4.5-13 .0 normal Not Available [address] Yanira Mendoza, [place], [address], 04/26/2024 07:13:12 04/26/20 24 04/26/2024 CBC W/AUT O DIFFE RENTI AL red blood cell 3.68 10e6/ uL 4.10-5 .70 low Not Available [address] , [place], [address], 04/26/2024 07:13:12 04/26/20 24 04/26/2024 CBC W/AUT O DIFFE RENTI AL hemoglobin 11.0 g/dL 12.0-1 6.9 low Not Available [address] Yanira Mendoza, [place], [address], 04/26/2024 07:13:12 04/26/2004/26/2024 CBC W/AUT O DIFFE RENTI AL hematocrit 32.3 % 36.0-4 9.0 low Not Available [address] Yanira Mendoza, [place], [address], 04/26/2024 07:13:12 04/26/2004/26/2024 CBC W/AUT O DIFFE RENTI AL mean cell volume 88 fL 78.0-9 8.0 normal Not Available [address] Yanira Mendoza, [place], [address], 04/26/2024 07:13:12 04/26/20 24 04/26/2024 CBC W/AUT O DIFFE RENTI AL mean cell HGB 29.9 pg 25.0-3 5.0 normal Not Available [place] [address], [place], [address], 04/26/2024 07:13:12 04/26/20 24 04/26/2024 CBC W/AUT O DIFFE RENTI AL mean cell HGB concentratio n 34.1 g/dL 31.0-3 6.0 normal Not Available [address] Yanira Mendoza, [place], [address], 04/26/2024 07:13:12 04/26/20 24 04/26/2024 CBC W/AUT O DIFFE RENTI AL red cell distribution width 12.4 % 11.0-1 5.0 normal Not Available [address] Yanira Mendoza, [place], [address], 04/26/2024 07:13:12 04/26/20 24 04/26/2024 CBC W/AUT O DIFFE RENTI AL platelet count 187 10e3/ uL 150-40 0 normal Not Available [address] Yanira Mendoza, [place], [address], 04/26/2024 07:13:12 04/26/20 24 04/26/2024 CBC W/AUT O DIFFE RENTI AL immature granulocyte % 0 0-1 normal Not Available [address] Yanira Mendoza, [place], [address], 04/26/2024 07:13:12 04/26/20 24 04/26/2024 CBC W/AUT O DIFFE RENTI AL neutrophil % 56 % 35-75 normal Not Available [address] Yanira Mendoza, [place], [address], 04/26/2024 07:13:12 04/26/20 24 04/26/2024 CBC W/AUT O DIFFE RENTI AL lymphocyte % 27 % 10-50 normal Not Available [address] Yanira Mendoza, [place], [address], 04/26/2024 07:13:12 04/26/20 24 04/26/2024 CBC W/AUT O DIFFE RENTI AL monocyte % 11 % 0-15 normal Not Available [address] Yanira Mendoza, [place], [address], 04/26/2024 07:13:12 04/26/20 24 04/26/2024 CBC W/AUT O DIFFE RENTI AL eosinophil % 5 % 0-5 normal Not Available [address] Yanira Mendoza, [place], [address], 04/26/2024 07:13:12 04/26/20 24 04/26/2024 CBC W/AUT O DIFFE RENTI AL basophil % 1 % 0-5 normal Not Available [place] [address], [place], [address], 04/26/2024 07:13:12 04/26/2004/26/2024 CBC W/AUT O DIFFE RENTI AL immature granulocyte # 0.01 x1000 /uL 0-0.05 normal Not Available [place] [address], [place], [address], 04/26/2024 07:13:12 04/26/20 24 04/26/2024 CBC W/AUT O DIFFE RENTI AL neutrophil # 3.00 x1000 /uL 1.50-8 .00 normal Not Available [place] [address], [place], [address], 04/26/2024 07:13:12 04/26/20 24 04/26/2024 CBC W/AUT O DIFFE RENTI AL lymphocyte # 1.46 x1000 /uL 1.20-5 .20 normal Not Available [place] [address], [place], [address], 04/26/2024 07:13:12 04/26/20 24 04/26/2024 CBC W/AUT O DIFFE RENTI AL monocyte # 0.57 x1000 /uL 0.30-0 .90 normal Not Available [place] [address], [place], [address], 04/26/2024 07:13:12 04/26/20 24 04/26/2024 CBC W/AUT O DIFFE RENTI AL eosinophil # 0.27 x1000 /uL 0.00-0 .50 normal Not Available [address] Yanira Mendoza, [place], [address], 04/26/2024 07:13:12 04/26/20 24 04/26/2024 CBC W/AUT O DIFFE RENTI AL basophil # 0.05 x1000 /uL 0.00-0 .30 normal Not Available [address] , [place], [address], 04/26/2024 07:13:12 04/26/20 24 04/26/2024 CBC W/AUT O DIFFE RENTI AL NRBC automated 0.0 /100_ WBC Not Available [address] , [place], [address], 04/26/2024 07:13:12 04/26/20 24 04/26/2024 CBC W/AUT O DIFFE RENTI AL performing lab see note ML - [facility] R [address] [facility] [address] Not Available [address] , [place], [address], 04/26/2024 07:13:12 04/26/20 24 04/26/2024 GLYCO HEMOG LOBIN (HGB A1C) note See Note Order ing Provi tigist: Martín Moise ng TELEPHONE ENGINEER Not Available [address] Yanira Mendoza, [place], [address], 04/26/2024 08:08:55 04/26/20 24 04/26/2024 GLYCO HEMOG LOBIN (HGB A1C) glycohemoglo bin (HGB A1C) 5.6 % 4.5-6. 2 normal Predi abete s: 5.7 - 6.4 Diabe cass: >6.4 Glyce mercy contr ol for adult s with diabe cass: <7.0 Not Available [address] Yaniar Mendoza, [place], [address], 04/26/2024 08:08:55 04/26/20 24 04/26/2024 GLYCO HEMOG LOBIN (HGB A1C) performing lab see note ML - [facility] [address] [facility] [address] Not Available [address] , [place], [address], 04/26/2024 08:08:55 06/25/2006/25/2024 CBC W/AUT O DIFFE RENTI AL note SEE NOTE Order ing Provi tigist: Jake Sarkar is TELEPHONE ENGINEER Not Available [place] [address], [place], [address], 06/25/2024 11:15:25 06/25/2006/25/2024 CBC W/AUT O DIFFE RENTI AL white blood cell 6.1 10e3/ uL 4.5-13 .0 normal Not Available [place] [address], [place], [address], 06/25/2024 11:15:25 06/25/2006/25/2024 CBC W/AUT O DIFFE RENTI AL red blood cell 3.68 10e6/ uL 4.10-5 .70 low Not Available [place] [address], [place], [address], 06/25/2024 11:15:25 06/25/2006/25/2024 CBC W/AUT O DIFFE RENTI AL hemoglobin 11.1 g/dL 12.0-1 6.9 low Not Available [place] [address], [place], [address], 06/25/2024 11:15:25 06/25/2006/25/2024 CBC W/AUT O DIFFE RENTI AL hematocrit 32.9 % 36.0-4 9.0 low Not Available [place] [address], [place], [address], 06/25/2024 11:15:25 06/25/2006/25/2024 CBC W/AUT O DIFFE RENTI AL mean cell volume 89 fL 78.0-9 8.0 normal Not Available [address] Yanira Mendoza, [place], [address], 06/25/2024 11:15:25 06/25/20 24 06/25/2024 CBC W/AUT O DIFFE RENTI AL mean cell HGB 30.2 pg 25.0-3 5.0 normal Not Available [place] [address], [place], [address], 06/25/2024 11:15:25 06/25/20 24 06/25/2024 CBC W/AUT O DIFFE RENTI AL mean cell HGB concentratio n 33.7 g/dL 31.0-3 6.0 normal Not Available [place] [address], [place], [address], 06/25/2024 11:15:25 06/25/20 24 06/25/2024 CBC W/AUT O DIFFE RENTI AL red cell distribution width 12.6 % 11.0-1 5.0 normal Not Available [address] Yanira Mendoza, [place], [address], 06/25/2024 11:15:25 06/25/20 24 06/25/2024 CBC W/AUT O DIFFE RENTI AL platelet count 221 10e3/ uL 150-40 0 normal Not Available [place] [address], [place], [address], 06/25/2024 11:15:25 06/25/20 24 06/25/2024 CBC W/AUT O DIFFE RENTI AL immature granulocyte % 0 0-1 normal Not Available [place] [address], [place], [address], 06/25/2024 11:15:25 06/25/20 24 06/25/2024 CBC W/AUT O DIFFE RENTI AL neutrophil % 60 % 35-75 normal Not Available [address] Yanira Mendoza, [place], [address], 06/25/2024 11:15:25 06/25/20 24 06/25/2024 CBC W/AUT O DIFFE RENTI AL lymphocyte % 25 % 10-50 normal Not Available [address] Yanira Mendoza, [place], [address], 06/25/2024 11:15:25 06/25/20 24 06/25/2024 CBC W/AUT O DIFFE RENTI AL monocyte % 9 % 0-15 normal Not Available [address] Yanira Mendoza, [place], [address], 06/25/2024 11:15:25 06/25/20 24 06/25/2024 CBC W/AUT O DIFFE RENTI AL eosinophil % 5 % 0-5 normal Not Available [address] Yanira Mendoza, [place], [address], 06/25/2024 11:15:25 06/25/20 24 06/25/2024 CBC W/AUT O DIFFE RENTI AL basophil % 1 % 0-5 normal Not Available [address] Yanira Mendoza, [place], [address], 06/25/2024 11:15:25 06/25/20 24 06/25/2024 CBC W/AUT O DIFFE RENTI AL immature granulocyte # 0.01 x1000 /uL 0-0.05 normal Not Available [address] Yanira Mendoza, [place], [address], 06/25/2024 11:15:25 06/25/20 24 06/25/2024 CBC W/AUT O DIFFE RENTI AL neutrophil # 3.66 x1000 /uL 1.50-8 .00 normal Not Available [address] [place], [address], 06/25/2024 11:15:25 06/25/20 24 06/25/2024 CBC W/AUT O DIFFE RENTI AL lymphocyte # 1.51 x1000 /uL 1.20-5 .20 normal Not Available [address] Yanira Mendoza, [place], [address], 06/25/2024 11:15:25 06/25/20 24 06/25/2024 CBC W/AUT O DIFFE RENTI AL monocyte # 0.54 x1000 /uL 0.30-0 .90 normal Not Available [address] Yanira Mendoza, [place], [address], 06/25/2024 11:15:25 06/25/20 24 06/25/2024 CBC W/AUT O DIFFE RENTI AL eosinophil # 0.33 x1000 /uL 0.00-0 .50 normal Not Available [address] , [place], [address], 06/25/2024 11:15:25 06/25/20 24 06/25/2024 CBC W/AUT O DIFFE RENTI AL basophil # 0.04 x1000 /uL 0.00-0 .30 normal Not Available [address] Yanira Mendoza, [place], [address], 06/25/2024 11:15:25 06/25/20 24 06/25/2024 CBC W/AUT O DIFFE RENTI AL NRBC automated 0.0 /100_ WBC Not Available [address] Yanira Mendoza, [place], [address], 06/25/2024 11:15:25 06/25/20 24 06/25/2024 CBC W/AUT O DIFFE RENTI AL performing lab SEE NOTE ML - [facility] [address] [facility] [address] Not Available [address] Yanira Mendoza, [place], [address], 06/25/2024 11:15:25 06/25/2006/25/2024 BASIC METAB OLIC PANEL note SEE NOTE Order ing Provi tigist: Jake Sarkar is TELEPHONE ENGINEER Not Available [address] Yanira Mendoza, [place], [address], 06/25/2024 11:56:09 06/25/20 24 06/25/2024 BASIC METAB OLIC PANEL sodium 139 mmol/ L 136-14 5 normal Not Available [address] Yanira Mendoza, [place], [address], 06/25/2024 11:56:09 06/25/2006/25/2024 BASIC METAB OLIC PANEL potassium 5.7 mmol/ L 3.5-5. 1 high Not Available [place] [address], [place], [address], 06/25/2024 11:56:09 06/25/2006/25/2024 BASIC METAB OLIC PANEL chloride 105 mmol/ L 98-107 normal Not Available [place] [address], [place], [address], 06/25/2024 11:56:09 06/25/20 24 06/25/2024 BASIC METAB OLIC PANEL carbon dioxide 30 mmol/ L 24-33 normal Not Available [place] [address], [place], [address], 06/25/2024 11:56:09 06/25/2006/25/2024 BASIC METAB OLIC PANEL anion gap 9.7 mmol/ L 10-20 low Not Available [place] [address], [place], [address], 06/25/2024 11:56:09 06/25/20 24 06/25/2024 BASIC METAB OLIC PANEL glucose 98 mg/dL 70-99 normal Not Available [address] Yanira Mendoza, [place], [address], 06/25/2024 11:56:09 06/25/20 24 06/25/2024 BASIC METAB OLIC PANEL blood urea nitrogen 39 mg/dL 7-18 high Not Available [address] [place], [address], 06/25/2024 11:56:09 06/25/20 24 06/25/2024 BASIC METAB OLIC PANEL creatinine 1.44 mg/dL 0.70-1 .30 high Not Available [address] [place], [address], 06/25/2024 11:56:09 06/25/2006/25/2024 BASIC METAB OLIC PANEL GFR (estimated) 57 mL/mi n >60 low [IM OZZIE NT]: The 2020 CKD-E PI equat ion is now the recom yolis d stand maxi. This versi on does not inclu de race, as do the 2008 and 2011 CKD-E PI creat inine and creat inine -cyst atin C equat ions. Pleas e note that the eGFR now repor jax is gener ated by the new 2020 CKD-E PI equat ion, which decre ases the eGFR for black s by up to 10% and incre ases the eGFR for non-b lacks by up to 10% in yohana rison to the old equat ion. To yohana re a legac y eGFR to a curre nt value , a 2008 CKD-E PI calcu lator is easil y searc hable on the inter net. Calcu lated GFR: This calcu lated GFR is advoc ated by the [facility] y [facility] ation to be used as an indic ator of Chron ic Kidne y Disea se (CKD) . 5 Stage s of Chron ic Kidne y Disea se. Stage 1 90 mL/mi n or more Healt hy kidne ys or Kidne y damag e with genna l or high GFR detai ls Stage 2 60 to 89 mL/mi n Kidne y damag e and mild decre ase in GFR detai ls Stage 3 30 to 59 mL/mi n Moder ate decre ase in GFR detai ls Stage 4 15 to 29 mL/mi n Sever e decre ase in GFR detai ls Stage 5 Less than 15 mL/mi n On dialy sis or Kidne y failu re Patie nt's clini kyung statu s must be consi dered for the care of your patie nt. Not Available [address] , [place], [address], 06/25/2024 11:56:09 06/25/2006/25/2024 BASIC METAB OLIC PANEL BUN/creatini ne ratio 27 -20 high Not Available [address] , [place], [address], 06/25/2024 11:56:09 06/25/2006/25/2024 BASIC METAB OLIC PANEL calcium 9.4 mg/dL 8.5-10 .1 normal Not Available [address] , [place], [address], 06/25/2024 11:56:09 06/25/2006/25/2024 BASIC METAB OLIC PANEL osmolality serum calculated 286 mOsm/ kg 272-28 8 normal Not Available [address] , [place], [address], 06/25/2024 11:56:09 06/25/2006/25/2024 BASIC METAB OLIC PANEL performing lab SEE NOTE ML - [facility] [address] [facility] [id number] Not Available [address] [place], [address], 06/25/2024 11:56:09 06/25/2006/25/2024 LIPID PANEL note See Note Order ing Provi tigist: Jake Sarkar is TELEPHONE ENGINEER Not Available [address] , [place], [address], 06/25/2024 11:56:11 06/25/2006/25/2024 LIPID PANEL triglyceride s 109 mg/dL < 150 normal Natio nal [employer] stero l Educa tion Progr am (NCEP ) Guide lines : Genna l < 150 mg/dL Borde rline 150 - 199 mg/dL High 200 - 499 mg/dL Very High >or= 500 mg/dL Not Available [address] , [place], [address], 06/25/2024 11:56:11 06/25/2006/25/2024 LIPID PANEL cholesterol 138 mg/dL < 200 normal Natio nal [employer] stero l Educa tion Progr am (NCEP ) Guide lines : Viet able < 200 mg/dL Borde rline Risk 200 - 239 mg/dL High Risk >or= 240 mg/dL Not Available [address] [place], [address], 06/25/2024 11:56:11 06/25/2006/25/2024 LIPID PANEL HDL cholesterol 41 mg/dL > 60 low Natio nal [employer] stero l Educa tion Progr am Adult Treat ment Panel III (NCEP -ATP III) Guide lines : < 40 mg/dl : Low HDL-C holes terol >or= 60 mg/dl : High HDL-C holes terol Not Available [address] , [place], [address], 06/25/2024 11:56:11 06/25/2006/25/2024 LIPID PANEL LDL cholesterol 75 mg/dL < 100 normal Natio nal Elo[employer] stero l Educa tion Progr am (NCEP ) Guide lines : Optim al < 100 mg/dL Near/ Above Optim al 100 - 129 mg/dL Borde rline High 130 - 159 mg/dL High 160 - 189 mg/dL Very High >or= 190 mg/dL Not Available [address] [place], [address], 06/25/2024 11:56:11 06/25/20 24 06/25/2024 LIPID PANEL performing lab see note - [facility] R [address] [place] [address] [facility] [address] Not Available [address] , [place], [address], 06/25/2024 11:56:11 07/16/20 24 07/16/2024 CBC W/AUT O DIFFE RENTI AL note SEE NOTE Order ing Provi tigist: Jake Sarkar is TELEPHONE ENGINEER Not Available [address] , [place], [address], 07/16/2024 10:48:40 07/16/20 24 07/16/2024 CBC W/AUT O DIFFE RENTI AL white blood cell 5.6 10e3/ uL 4.5-13 .0 normal Not Available [address] , [place], [address], 07/16/2024 10:48:40 07/16/20 24 07/16/2024 CBC W/AUT O DIFFE RENTI AL red blood cell 3.77 10e6/ uL 4.10-5 .70 low Not Available [address] , [place], [address], 07/16/2024 10:48:40 07/16/20 24 07/16/2024 CBC W/AUT O DIFFE RENTI AL hemoglobin 11.4 g/dL 12.0-1 6.9 low Not Available [address] Yanira Mendoza, [place], [address], 07/16/2024 10:48:40 07/16/20 24 07/16/2024 CBC W/AUT O DIFFE RENTI AL hematocrit 33.3 % 36.0-4 9.0 low Not Available [address] , [place], [address], 07/16/2024 10:48:40 07/16/20 24 07/16/2024 CBC W/AUT O DIFFE RENTI AL mean cell volume 88 fL 78.0-9 8.0 normal Not Available [address] Yanira Mendoza, [place], [address], 07/16/2024 10:48:40 07/16/20 24 07/16/2024 CBC W/AUT O DIFFE RENTI AL mean cell HGB 30.2 pg 25.0-3 5.0 normal Not Available [address] Yanira Mendoza, [place], [address], 07/16/2024 10:48:40 07/16/20 24 07/16/2024 CBC W/AUT O DIFFE RENTI AL mean cell HGB concentratio n 34.2 g/dL 31.0-3 6.0 normal Not Available [address] Yanira Mendoza, [place], [address], 07/16/2024 10:48:40 07/16/20 24 07/16/2024 CBC W/AUT O DIFFE RENTI AL red cell distribution width 12.2 % 11.0-1 5.0 normal Not Available [address] Yanira Mendoza, [place], [address], 07/16/2024 10:48:40 07/16/20 24 07/16/2024 CBC W/AUT O DIFFE RENTI AL platelet count 235 10e3/ uL 150-40 0 normal Not Available [address] Yanira Mendoza, [place], [address], 07/16/2024 10:48:40 07/16/20 24 07/16/2024 CBC W/AUT O DIFFE RENTI AL immature granulocyte % 0 0-1 normal Not Available [address] Yanira Mendoza, [place], [address], 07/16/2024 10:48:40 07/16/20 24 07/16/2024 CBC W/AUT O DIFFE RENTI AL neutrophil % 59 % 35-75 normal Not Available [address] Yanira Mendoza, [place], [address], 07/16/2024 10:48:40 07/16/20 24 07/16/2024 CBC W/AUT O DIFFE RENTI AL lymphocyte % 27 % 10-50 normal Not Available [address] Yanira Mendoza, [place], [address], 07/16/2024 10:48:40 07/16/20 24 07/16/2024 CBC W/AUT O DIFFE RENTI AL monocyte % 9 % 0-15 normal Not Available [address] Yanira Mendoza, [place], [address], 07/16/2024 10:48:40 07/16/20 24 07/16/2024 CBC W/AUT O DIFFE RENTI AL eosinophil % 5 % 0-5 normal Not Available [address] Yanira Mendoza, [place], [address], 07/16/2024 10:48:40 07/16/20 24 07/16/2024 CBC W/AUT O DIFFE RENTI AL basophil % 1 % 0-5 normal Not Available [address] Yanira Mendoza, [place], [address], 07/16/2024 10:48:40 07/16/20 24 07/16/2024 CBC W/AUT O DIFFE RENTI AL immature granulocyte # 0.01 x1000 /uL 0-0.05 normal Not Available [address] Yanira Mendoza, [place], [address], 07/16/2024 10:48:40 07/16/20 24 07/16/2024 CBC W/AUT O DIFFE RENTI AL neutrophil # 3.32 x1000 /uL 1.50-8 .00 normal Not Available [address] , [place], [address], 07/16/2024 10:48:40 07/16/20 24 07/16/2024 CBC W/AUT O DIFFE RENTI AL lymphocyte # 1.50 x1000 /uL 1.20-5 .20 normal Not Available [address] , [place], [address], 07/16/2024 10:48:40 07/16/20 24 07/16/2024 CBC W/AUT O DIFFE RENTI AL monocyte # 0.48 x1000 /uL 0.30-0 .90 normal Not Available [address] , [place], [address], 07/16/2024 10:48:40 07/16/20 24 07/16/2024 CBC W/AUT O DIFFE RENTI AL eosinophil # 0.26 x1000 /uL 0.00-0 .50 normal Not Available [address] , [place], [address], 07/16/2024 10:48:40 07/16/20 24 07/16/2024 CBC W/AUT O DIFFE RENTI AL basophil # 0.06 x1000 /uL 0.00-0 .30 normal Not Available [address] Yanira Mendoza, [place], [address], 07/16/2024 10:48:40 07/16/20 24 07/16/2024 CBC W/AUT O DIFFE RENTI AL NRBC automated 0.0 /100_ WBC Not Available [address] , [place], [address], 07/16/2024 10:48:40 07/16/20 24 07/16/2024 CBC W/AUT O DIFFE RENRAQUEL AL performing lab SEE NOTE - [address] ANUJ BRUNER [address] Not Available [address] , [place], [address], 07/16/2024 10:48:40 07/16/20 24 07/16/2024 VITAM IN D 25-HY DROXY note SEE NOTE Order ing Provi tigist: Jake Sarkar is TELEPHONE ENGINEER Not Available [address] , [place], [address], 07/17/2024 07:08:42 07/16/20 24 07/16/2024 VITAM IN D 25-HY DROXY vitamin D 25-hydroxy 39.5 NG/mL 30.0-1 00.0 Vitam in D defic iency has been defin ed by the Insti tute of Medic ine and an Endoc rine Socie ty pract ice guide line as a level of serum 25-OH vitam in D less than 20 ng/mL (1,2) . The Endoc rine Socie ty went on to furth er defin e vitam in D insuf ficie ncy as a level betwe en 21 and 29 ng/mL (2). 1. IOM (Inst itute of Medic ine). 2009. Dieta ry refer ence intak es for calci um and D. Rommel bower [place]: [facility] Press . 2. Eri montano MF, Vane cuellar [place], Nancy off-F fannyar i MCGARRY, et al. Evalu ation , treat ment, and preve ntion of vitam in D defic iency : an Endoc rine Socie ty clini kyung pract ice guide line. JCEM. 2010; 96(7) :1911 -30. Perfo rmed At: CB, [facility] [address] [facility], [place], [address] 6824 Nahum roman, PhD, Phone : [phone] Not Available [address] , [place], [address], 07/17/2024 07:08:42 11/02/20 24 07/16/2024 VITAM IN D 25-HY DROXY performing lab SEE NOTE LC2 - [facility] RP CLIEN T# [id number] [id number] [address] [place] [address] Not Available [address] , [place], [address], 07/17/2024 07:08:42 07/16/20 24 07/16/2024 BASIC METAB OLIC PANEL note SEE NOTE Order ing Provi tigist: Jake Sarkar is TELEPHONE ENGINEER Not Available [address] , [place], [address], 07/21/2024 20:10:43 07/16/20 24 07/16/2024 BASIC METAB OLIC PANEL sodium 140 mmol/ L 136-14 5 normal Not Available [address] , [place], [address], 07/21/2024 20:10:43 07/16/20 24 07/16/2024 BASIC METAB OLIC PANEL potassium 4.7 mmol/ L 3.5-5. 1 normal Not Available [address] , [place], [address], 07/21/2024 20:10:43 07/16/20 24 07/16/2024 BASIC METAB OLIC PANEL chloride 104 mmol/ L 98-107 normal Not Available [address] Yanira Mendoza, [place], [address], 07/21/2024 20:10:43 07/16/20 24 07/16/2024 BASIC METAB OLIC PANEL carbon dioxide 27 mmol/ L 24-33 normal Not Available [address] , [place], [address], 07/21/2024 20:10:43 07/16/20 24 07/16/2024 BASIC METAB OLIC PANEL anion gap 13.7 mmol/ L 10-20 normal Not Available [address] , [place], [address], 07/21/2024 20:10:43 07/16/20 24 07/16/2024 BASIC METAB OLIC PANEL glucose 130 mg/dL 70-99 high Not Available [address] [place], [address], 07/21/2024 20:10:43 07/16/20 24 07/16/2024 BASIC METAB OLIC PANEL blood urea nitrogen 38 mg/dL 7-18 high Not Available [address] , [place], [address], 07/21/2024 20:10:43 07/16/20 24 07/16/2024 BASIC METAB OLIC PANEL creatinine 1.54 mg/dL 0.70-1 .30 high Not Available [address] , [place], [address], 07/21/2024 20:10:43 07/16/20 24 07/16/2024 BASIC METAB OLIC PANEL GFR (estimated) 52 mL/mi n >60 low [IM OZZIE NT]: The 2020 CKD-E PI equat ion is now the recom yolis d stand maxi. This versi on does not inclu de race, as do the 2008 and 2011 CKD-E PI creat inine and creat inine -cyst atin C equat ions. Pleas e note that the eGFR now repor jax is gener ated by the new 2020 CKD-E PI equat ion, which decre ases the eGFR for black s by up to 10% and incre ases the eGFR for non-b lacks by up to 10% in yohana rison to the old equat ion. To yohana re a legac y eGFR to a curre nt value , a 2009 CKD-E PI calcu lator is easil y searc hable on the inter net. Calcu lated GFR: This calcu lated GFR is advoc ated by the Natio nal Kidne y Found ation to be used as an indic ator of Chron ic Kidne y Disea se (CKD) . 5 Stage s of Chron ic Kidne y Disea se. Stage 1 90 mL/mi n or more Healt hy kidne ys or Kidne y damag e with genna l or high GFR detai ls Stage 2 60 to 89 mL/mi n Kidne y damag e and mild decre ase in GFR detai ls Stage 3 30 to 59 mL/mi n Moder ate decre ase in GFR detai ls Stage 4 15 to 29 mL/mi n Sever e decre ase in GFR detai ls Stage 5 Less than 15 mL/mi n On dialy sis or Kidne y failu re Patie nt's clini kyung statu s must be consi dered for the care of your patie nt. Not Available [address] , [place], [address], 07/21/2024 20:10:43 07/16/20 24 07/16/2024 BASIC METAB OLIC PANEL BUN/creatini ne ratio 24 12-20 high Not Available [address] , [place], [address], 07/21/2024 20:10:43 07/16/20 24 07/16/2024 BASIC METAB OLIC PANEL calcium 9.6 mg/dL 8.5-10 .1 normal Not Available [address] , [place], [address], 07/21/2024 20:10:43 07/16/20 24 07/16/2024 BASIC METAB OLIC PANEL osmolality serum calculated 289 mOsm/ kg 272-28 8 high Not Available [address] Yanira Mendoza, [place], [address], 07/21/2024 20:10:43 07/16/20 24 07/16/2024 BASIC METAB OLIC PANEL performing lab SEE NOTE - [facility] R [address] [facility] [address] Not Available [address] [place], [address], 07/21/2024 20:10:43 07/16/20 24 07/16/2024 MAGNE SIUM note SEE NOTE Order ing Provi tigist: Jake Sarkar is TELEPHONE ENGINEER Not Available [address] , [place], [address], 07/21/2024 20:10:44 07/16/20 24 07/16/2024 MAGNE SIUM magnesium 1.7 mg/dL 1.8-2. 4 low Not Available [address] , [place], [address], 07/21/2024 20:10:44 07/16/20 24 07/16/2024 MAGNE SIUM performing lab SEE NOTE - [place] [address] [facility] [address] Not Available [address] , [place], [address], 07/21/2024 20:10:44 07/16/20 24 07/16/2024 THYRO ID PANEL W/TSH note See Note Order ing Provi tigist: Jake Sarkar is TELEPHONE ENGINEER Not Available [address] , [place], [address], 07/21/2024 20:10:45 07/16/20 24 07/16/2024 THYRO ID PANEL W/TSH T4 free 0.89 NG/dL 0.76-1 .46 normal This test may be affec jax by high level s of bioti n, found in some presc ripti on and over- the-c ounte r suppl ement s. [place], patie nts brayden woodard disco ntinu e bioti n 3 days befor e testi ng. Resul ts obtai monica after recen t bioti n inges tion brayden woodard be inter prete d with cauti on. Not Available [address] , [place], [address], 07/21/2024 20:10:45 07/16/20 24 07/16/2024 THYRO ID PANEL W/TSH thyroid stimulating hormone 2.22 uIU/m L 0.36-3 .74 normal This test may be affec jax by high level s of bioti n, found in some [facility] ripti on and over- the-c ounte r suppl ement s. [place], patie nts shoul d disco ntinu e bioti n 3 days befor e testi ng. Resul ts obtai monica after recen t bioti n inges tion shoul d be inter prete d with cauti on. Not Available [address] , [place], [address], 07/21/2024 20:10:45 07/16/20 24 07/16/2024 THYRO ID PANEL W/TSH performing lab see note - [facility] MED [facility] R [facility] [address] [facility] [address] Not Available [address] , [place], [address], 07/21/2024 20:10:45 07/16/20 24 07/16/2024 TESTO STERO NE FREE PANEL note See Note Order ing Provi tigist: Jake Sarkar is TELEPHONE ENGINEER Not Available [address] , [place], [address], 07/21/2024 20:10:46 07/16/20 24 07/16/2024 TESTO STERO NE FREE PANEL testosterone 27 NG/dL 264-91 6 low Adult male refer ence inter lexa is based on a popul ation of healt hy nonob tarik males (BMI <30) betwe en 19 and 39 years old. danny Carranza.al . JCEM 2017, 102;1 161-1 173. PMID: 45466 103. Not Available [address] , [place], [address], 07/21/2024 20:10:46 07/16/20 24 07/16/2024 TESTO STERO NE FREE PANEL testosterone (free) 0.3 pg/mL 7.2-24 .0 low Perfo rmed At: CB, [facility] [place] [address] [facility], [place], [address] 6814 Nahum roman, PhD, Phone : [phone] Perfo rmed At: BN, [facility] [address] [facility] [place], [address] 8566 Alyson salvador MD, Phone : [phone] Not Available [address] [place], [address], 07/21/2024 20:10:46 07/16/20 24 07/16/2024 TESTO STERO NE FREE PANEL performing lab see note LC2 - [facility] RP CLIEN T# [id number] [id number] [address] [place] [address] Not Available [address] , [place], [address], 07/21/2024 20:10:46 10/14/19 25 10/14/2024 CREAT ININE W/GFR note SEE NOTE Order ing Provi tigist: Jake phoenix Sarkar is TELEPHONE ENGINEER Not Available [address] , [place], [address], 10/14/2024 07:43:58 10/14/19 25 10/14/2024 CREAT ININE W/GFR creatinine 1.37 mg/dL 0.70-1 .30 high Not Available [address] [place], [address], 10/14/2024 07:43:58 10/14/19 25 10/14/2024 CREAT ININE W/GFR GFR (estimated) 60 mL/mi n >60 normal [IM OZZIE NT]: The 2020 CKD-E PI equat ion is now the recom yolis d stand maxi. This versi on does not inclu de race, as do the 2008 and 2011 CKD-E PI creat inine and creat inine -cyst atin C equat ions. Eliezer james note that the eGFR now repor jax is gener ated by the new 2020 CKD-E PI equat ion, which decre ases the eGFR for black s by up to 10% and incre ases the eGFR for non-b lacks by up to 10% in yohana rison to the old equat ion. To yohana re a legac y eGFR to a curre nt value , a 2008 CKD-E PI calcu lator is easil y searc hable on the inter net. Calcu lated GFR: This calcu lated GFR is advoc ated by the Natio nal Kidne y Found ation to be used as an indic ator of Chron ic Kidne y Disea se (CKD) . 5 Stage s of Chron ic Kidne y Disea se. Stage 1 90 mL/mi n or more Healt hy kidne ys or Kidne y damag e with genna l or high GFR detai ls Stage 2 60 to 89 mL/mi n Kidne y damag e and mild decre ase in GFR detai ls Stage 3 30 to 59 mL/mi n Moder ate decre ase in GFR detai ls Stage 4 15 to 29 mL/mi n Sever e decre ase in GFR detai ls Stage 5 Less than 15 mL/mi n On dialy sis or Kidne y failu re Patie nt's clini kyung statu s must be consi dered for the care of your patie nt. Not Available [address] , [place], [address], 10/14/2024 07:43:58 10/14/19 25 10/14/2024 CREAT ININE W/GFR performing lab SEE NOTE ML - [facility] R [address] [place] [address] Not Available [address] , [place], [address], 10/14/2024 07:43:58 10/14/19 25 10/14/2024 LIPID PANEL note SEE NOTE Order ing Provi tigist: Jake Sarkar is TELEPHONE ENGINEER Not Available [address] [place], [address], 10/14/2024 19:31:06 10/14/19 25 10/14/2024 LIPID PANEL triglyceride s 67 mg/dL < 150 normal Natio nal Eloina stero l Educa tion Progr am (NCEP ) Guide lines : Genna l < 150 mg/dL Borde rline 150 - 199 mg/dL High 200 - 499 mg/dL Very High >or= 500 mg/dL Not Available [address] [place], [address], 10/14/2024 19:31:06 10/14/19 25 10/14/2024 LIPID PANEL cholesterol 111 mg/dL < 200 normal Natio nal Eloina stero l Educa tion Progr am (NCEP ) Guide lines : Viet able < 200 mg/dL Borde rline Risk 200 - 239 mg/dL High Risk >or= 240 mg/dL Not Available [address] [place], [address], 10/14/2024 19:31:06 10/14/19 25 10/14/2024 LIPID PANEL HDL cholesterol 34 mg/dL > 60 low Natio nal Eloina stero l Educa tion Progr am Adult Treat ment Panel III (NCEP -ATP III) Guide lines : < 40 mg/dl : Low HDL-C holes terol >or= 60 mg/dl : High HDL-C holes terol Not Available [address] [place], [address], 10/14/2024 19:31:06 10/14/19 25 10/14/2024 LIPID PANEL LDL cholesterol 64 mg/dL < 100 normal Natio nal Eloina stero l Educa tion Progr am (NCEP ) Guide lines : Optim al < 100 mg/dL Near/ Above Optim al 100 - 129 mg/dL Borde rline High 130 - 159 mg/dL High 160 - 189 mg/dL Very High >or= 190 mg/dL Not Available [address] , [place], [address], 10/14/2024 19:31:06 10/14/19 25 10/14/2024 LIPID PANEL performing lab SEE NOTE ML - [facility] R [address] [facility] [address] Not Available [address] , [place], [address], 10/14/2024 19:31:06 10/14/19 25 10/14/2024 CREAT ININE W/GFR note SEE NOTE Order ing Provi tigist: Jake Hernadez Antonina is TELEPHONE ENGINEER Not Available [address] , [place], [address], 10/14/2024 19:31:07 10/14/19 25 10/14/2024 CREAT ININE W/GFR creatinine 1.37 mg/dL 0.70-1 .30 high Not Available [address] , [place], [address], 10/14/2024 19:31:07 10/14/19 25 10/14/2024 CREAT ININE W/GFR GFR (estimated) 60 mL/mi n >60 normal [IM OZZIE NT]: The 2020 CKD-E PI equat ion is now the recom yolis d stand maxi. This versi on does not inclu de race, as do the 2008 and 2011 CKD-E PI creat inine and creat inine -cyst atin C equat ions. Eliezer e note that the eGFR now repor jax is gener ated by the new 2020 CKD-E PI equat ion, which decre ases the eGFR for black s by up to 10% and incre ases the eGFR for non-b lacks by up to 10% in yohana rison to the old equat ion. To yohana re a legac y eGFR to a curre nt value , a 2009 CKD-E PI calcu lator is easil y seaevelyne hable on the inter net. Calcu lated GFR: This calcu lated GFR is advoc ated by the Natio nal Kidne y Found ation to be used as an indic ator of Chron ic Kidne y Disea se (CKD) . 5 Stage s of Chron ic Kidne y Disea se. Stage 1 90 mL/mi n or more Healt hy kidne ys or Kidne y damag e with genna l or high GFR detai ls Stage 2 60 to 89 mL/mi n Kidne y damag e and mild decre ase in GFR detai ls Stage 3 30 to 59 mL/mi n Moder ate decre ase in GFR detai ls Stage 4 15 to 29 mL/mi n Sever e decre ase in GFR detai ls Stage 5 Less than 15 mL/mi n On dialy sis or Kidne y failu re Patie nt's clini kyung statu s must be consi dered for the care of your patie nt. Not Available [address] , [place], [address], 10/14/2024 19:31:07 10/14/19 25 10/14/2024 CREAT ININE W/GFR performing lab SEE NOTE ML [facility] R [address] [facility] [address] Not Available [address] , [place], [address], 10/14/2024 19:31:07 04/18/20 24 elect rocar diogr am No observ ation record ed. KELL Jarrett [address], [place], [address], 04/18/2024 14:28:26 04/18/20 24 04/18/2024 elect rocar diogr am No observ ation record ed. KELL Jarrett [address], [place], [address], 04/18/2024 15:01:21 04/28/20 24 04/28/2024 - ECHO w/spe c/col or flow [facility] Name: ROSELYN HERNANDEZ [address] Phys: [place] [address] : 1965 Age: 58 Sex: M Acct: [id number] Loc: CAROLINE PHONE #: Exam Date: 2023 Status : DEP CLI FAX #: [phone] Rad# [id number] Unit# [id number] Admit Date: 2023 EXAMS: CPT CODE: [id number] ECHO W/SPEC /COLOR FLOW [id number] Reason for study: Dyspne a Left ventri cular diasto le: 4.7 Left ventri cular systol e: 2.8 Septal wall thickn ess: 1.2 Welding Setter ior wall thickn ess: 1.1 Right ventri cular diasto le: 1.4 Left Atrium : 3.6 Aortic root: 3.5 TR veloci ty: 2.46 m/s Impres chery: 1. Normal left ventri cular chambe r size with normal left ventri cular systol ic functi on. Estima jax ejecti on fracti on is 65-70% . There is mild concen tric hypert rophy of the left ventri eleonora 2. No segmen pratik wall motion abnorm alitie s 3. Normal left atrial and right atrial size 4. Normal right ventri cular size and functi on 5. Normal mitral valve, with trivia l mitral insuff icienc y 6. Aortic valve appear s to be probab ly bicusp id. There is mild to modera te calcif icatio n and thicke magan of the aortic valve leafle ts. There is mild restri ction across the valve with a peak veloci ty of 2.6 m/s. There is mild aortic insuff icienc y 7. No perica rdial effusi on 8. Normal aortic root 9. Normal tricus pid valve, with tricus pid regurg itant jet veloci ty of 2.46 m/s implyi ng a right ventri cular systol ic pressu re of approx imatel y 36 mmHg Electr onical ly Signed by MELISSA OG MD on 2023 at 0829 Report ed and signed by: MELISSA OG MD PAGE 1 Signed Report (ADONIS NUSARI) [facility] Medica l Ce Name: ROSELYN HERNANDEZ [facility] [employer] [address] Phys: Shaji mendiola APRN,M itchmariann l [place] [address] : 1965 Age: 58 Sex: M Acct: [id number] Loc: CAROLINE PHONE #: Exam Date: 2023 Status : DEP CLI FAX #: Rad# [id number] Unit# [id number] Admit Date: 2023 EXAMS: CPT CODE: [id number] ECHO W/SPEC /COLOR FLOW [id number] CC: Cindy mendiola APRN; Yany Overton APRN Dictat ed Date/T joanna: 2023 (0829) Techno logist : SAVI HOLLIS Transc ribed Date/T joanna: 2023 (0829) Transc riptio nist: DR.LOH MCDOWELL Electr onic Signat ure Date/T joanna: 2023 (0829) Printe d Date/T joanna: 2023 (0833) BATCH NO: N/A PAGE 2 Signed Report CC'ed Logic: Orderi ng Provid er: SHAJI COCHRAN Attend ing Provid er: SHAJI COCHRAN Referr ing Provid er: SHAJI COCHRAN Consul ting Provid er: PAULA TELEPHONE ENGINEER YANY [place] [email or web address] , [place], [address], 05/09/2024 17:22:01 05/09/20 24 elect rocar diogr am No observ ation record ed. KELL Jarrett [address], [place], [address], 05/09/2024 10:14:40 05/09/20 24 05/09/2024 elect liza maradiaga am No observ ation record ed. Not Available 2023 11:07:25 05/26/20 24 05/26/2024 US, willie escamilla, carot id arter y [facility] Name: ROSELYN HERNANDEZ TAWANDA [address] Phys: Danya Pastor [place]Nmar[place] [place] [address] : 1965 Age: 58 Sex: M Acct: [id number] Loc: [email or web address].US PHONE #: Exam Date: 2023 Status : REG CLI FAX #: Rad# [id number] Unit# [id number] Admit Date: 2023 EXAMS: CPT CODE: [id number] CAROTI D DUPLEX DOPPLE R [id number] BILATE RAL CAROTI D DUPLEX , 024 CLINIC AL HISTOR Y: Dizzin ess. Follow -up of caroti d artery stenos is COMPAR SHAUNA: Bilate ral caroti d duplex , 022. TECHNI QUE: Multip le graysc elodia sonogr aphic images of the bilate ral caroti d arteri es were obtain ed in the transv erse and longit udinal planes . Color Dopple r and spectr al wavefo rm analys is was applie d assess vascul ar flow. All stenos is percen tages are made in refere nce to the distal ICA. FINDIN GS: There is mild type II plaque at the right ICA origin . The peak systol ic veloci ties of the right common , internet marketing manager al, and playground worker al caroti d arteri es are 145, 103, and 70 cm/sec , respec tively . The veloci ty ratios are normal and the right ICA veloci ties are not signif icantl y change d. There is mild type II plaque within the left caroti d bulb, and minima l plaque at the left ICA origin . The peak systol ic veloci ties of the left common , internet marketing manager al, and playground worker al caroti d arteri es are 136, 111, and 67 cm/s, respec tively . The veloci ty ratios are normal and the left ICA veloci ties are increa sed from prior. Normal flow is identi fied within the bilate ral verteb ral and subcla vian arteri es. IMPRES CHERY: 1. Stable 1-39% stenos is of the bilate ral ICAs, likely closer to the lower end of the range Electr onical ly Signed by CHARO MCDOWELL MD on 2023 at 1620 Report ed and signed by: CHARO MCDOWELL MD PAGE 1 Signed Report (ADONIS NUED) [facility] Medica l Name: ROSELYN HERNANDEZ [address] [place] Phys: Shaji mendiola [place] [address] : 1965 Age: 58 Sex: M Acct: [id number] Loc: [facility] PHONE #: Exam Date: 2023 Status : REG CLI FAX #: Rad# [id number] Unit# [id number] Admit Date: 2023 EXAMS: CPT CODE: [id number] [id number] CAROTI D DUPLEX DOPPLE R [id number] CC: Cindy mendiola APRN; Yany Overton APRN Dictat ed Date/T joanna: 2023 (1620) Techno logist : LINDSA Y MAILE Transc ribed Date/T joanna: 2023 (1620) Transc riptio nist: DR.HAG CARLEY Gonzalez onic Signat ure Date/T joanna: 2023 (1620) Printe d Date/T joanna: 2023 (1623) BATCH NO: N/A PAGE 2 Signed Report CC'ed Logic: Orderi ng Provid er: SHAJI COCHRAN Attend ing Provid er: SHAJI COCHRAN Referr ing Provid er: SHAJI COCHRAN Consul ting Provid er: PAULA BENTON [email or web address] , [place], [address], 05/26/2024 18:05:56 05/27/20 24 05/27/2024 arter ial segme ntal press ure, lower extre [facility] Medica l Ce Name: ROSELYN HERNANDEZ [facility] Medica l [address] Phys: Gonzales MASTERSON, [place] [address] : 1965 Age: 58 Sex: M Acct: [id number] Loc: [facility] PHONE #: Exam Date: 2023 Status : DEP CLI FAX #: [phone] Rad# [id number] Unit# [id number] Admit Date: 2023 EXAMS: CPT CODE: [id number] 873 SEG PRESSU RE ART LOW EXT [id number] Reason for study: Claudi cation Patien t underw ent an ankle brachi al indice s bilate ral. The brachi al pressu re on the right was 138 with a brachi al pressu re on the left of 136. Upper thigh pressu re on the right is 201 and on the left is 197. Upper calf pressu re on the right is 173 and on the left is 164. Dorali s pedis and newspaper manager ior tibial are 184 and 190 on the left respec tively giving an ankle brachi al indice s of 1.33 and 1.38. Dorsal is pedis and newspaper manager ior tibial on the right were 191 and 202 giving an ankle brachi al indice s of 1.38 and 1.46 respec tively . Overal l this signif ies normal flow down the legs with no signif icant periph eral vascul ar diseas e. 1. Normal pressu res and wavefo shane bilate ral sugges ting no signif icant periph eral vascul ar diseas e. 2. Increa se pressu res in the leg sugges ting periph eral arteri al calcif icatio n Electr onical ly Signed by MELISSA OG MD on 2023 at 0856 Report ed and signed by: MELISSA OG MD CC: Melissa Og MD; Cindy mendiola APRN; Yany Overton APRN Dictat ed Date/T joanna: 2023 (0856) Techno logist : YANY MELCHOR Transc ribed Date/T joanna: 2023 (0856) Transc riptio nist: DR.LOH MCDOWELL Electr onic Signat ure Date/T joanna: 2023 (0856) Printe d Date/T joanna: 2023 (0900) BATCH NO: N/A PAGE 1 Signed Report CC'ed Logic: Orderi ng Provid er: GONZALES TORRES Attend ing Provid er: SHAJI COCHRAN Referr ing Provid er: SHAJI COCHRAN Consul ting Provid er: PAULA BENTON [email or web address] , [place], [address], 05/27/2024 09:36:08 10/14/19 25 10/14/2024 CT, angio gram, chest , w/wo contr ast [facility] Med[facility] Ce Name: ROSELYN HERNANDEZ [address] Phys: [place] [address] : 1965 Age: 59 Sex: M Acct: [id number] Loc: G.CT PHONE #: Exam Date: 2024 Status : REG CLI FAX #: Rad# [id number] Unit# [id number] Admit Date: 2024 EXAMS: CPT CODE: [id number] 920 CTA CHEST (AORTA ) 11624 CLINIC AL INFORM ATION: Follow -up thorac ic aortic aneury sm. Former smoker TECHNI QUE: Multis lice axial enhanc ed imagin g of the chest was perfor med as well as 2-D recons tructi ons in the hollins l and sagitt al planes . Additi onally , 3-D vascul ar recons tructi ons were perfor med and interp reted on a separa te workst ation. Automa jax exposu re contro l was employ ed for dose reduct ion. COMPAR SHAUNA: 024 and older studie s Findin gs: Thyroi d gland and Soft tissue s:No signif icant abnorm alitie s. Heart, aorta and medias tinum: Mild nonflo w limiti ng stenos is right innomi godfrey artery . Normal varian t origin ation left verteb ral artery from the arch. Stable 4.5 cm fusifo rm aneury sm ascend ing thorac ic aorta taperi ng to a normal calibe r at the arch. Aortic root measur es about 3.8 cm. Bicusp id aortic valve. Heart size border line enlarg ed. Hollins ry artery and/or hollins ry artery stenti ng noted as before . [place] ing enlarg ed medias tinal and hilar lympha denopa thy as before . Abdome n: Hepati c steato sis with cholec ystect noris. Lungs: Mild emphys sukhjinder. Stable subple ural opacit y left upper lobe at right major fissur e nodule since 2019. No infilt rate or effusi on centra l airway s patent Osseou s elemen ts:No signif icant osseou s pathol ogy. IMPRES CHERY: 1. Stable 4.5 cm fusifo rm aneury sm ascend ing thorac ic aorta bicusp id aortic valve again noted. 2. Mild emphys sukhjinder withou t eviden ce of acute diseas e or pathol ogic pulmon prema nodula rity. 3. Stable medias tinal and hilar lympha denopa thy Commun icatio n: Per this writte n report . NOTE: Manage ment/f ollow- up of any incid ental pulmo nary nodule s will be based on the Fleisc hner Societ y criter ia. PAGE 1 Signed Report (ADONIS NUED) [facility] Ce Name: ROSELYN HERNANDEZ [place] [address] Medica l [employer] Phys: Danya Pastor APR[place] [address] : 1965 Age: 59 Sex: M Acct: [id number] Loc: G.CT PHONE #: Exam Date: 2024 Status : REG CLI FAX #: Rad# [id number] Unit# [id number] Admit Date: 2024 EXAMS: CPT CODE: [id number] 920 CTA CHEST (AORTA ) 55741 Any incide ntally noted liver lesion s equal to or less than 5 mm, cystic lesion s in the kidney s less than 1 cm, and/or adrena l lesion s equal to or less than 1 cm, genera lly are consid ered highly likely to be benign and no additi onal evalua tion is recomm ended, unless specif ically mentio monica in the impres chery. This report is genera jax using voice recogn ition comput er softwa re. Inadve rtent errors may have occurr ed while dictat ing report . Common sense approa ch is apprec iated and do not hesita te to call for clarif icatio n when necess prema. Electr onical ly Signed by Isaias Deleon on 2024 at 1150 Report ed and signed by: AJLEN Deleon M.D. CC: Cindy mendiola APRN; Yany Overton APRN Dictat ed Date/T joanna: 2024 (1150) Techno logist : LEE ADDISO N; ALEXIA BELLAM Y Transc ribed Date/T joanna: 2024 (1150) Transc riptio nist: DR.HAR HASSAN Electr onic Signat ure Date/T joanna: 2024 (1150) Printe d Date/T joanna: 2024 (1153) BATCH NO: N/A PAGE 2 Signed Report CC'ed Logic: Orderi ng Provid er: SHAJI COCHRAN Attend ing Provid er: SHAJI COCHRAN Referr ing Provid er: SHAJI COCHRAN Consul ting Provid er: PAULA YVROSE BENTON [email or web address] , [place], [address], 12/01/2024 18:43:20 Result Notes Documentation Provider Name and Address Organization Details Recorded Time Ct, Angiogram, Chest, W/wo Contrast : [facility] Ce Name: THIERNO AZUL [facility] Phys: [place] [address] : 1965 Age: 59 Sex: M Acct: [id number] Loc: G.CT PHONE #: Exam Date: 10/14/2024 Status: REG CLI FAX #: Rad# [id number] Unit# [id number] Admit Date: 10/14/2024 EXAMS: CPT CODE: [id number] CTA CHEST (AORTA) 18392 CLINICAL INFORMATION: Follow-up thoracic aortic aneurysm. Former smoker TECHNIQUE: Multislice axial enhanced imaging of the chest was performed as well as 2-D reconstructions in the coronal and sagittal planes. Additionally, 3-D vascular reconstructions were performed and interpreted on a separate workstation. Automated exposure control was employed for dose reduction. COMPARISON: 10/30/2023 and older studies Findings: Thyroid gland and Soft tissues:No significant abnormalities. Heart, aorta and mediastinum: Mild nonflow limiting stenosis right innominate artery. Normal variant origination left vertebral artery from the arch. Stable 4.5 cm fusiform aneurysm ascending thoracic aorta tapering to a normal caliber at the arch. Aortic root measures about 3.8 cm. Bicuspid aortic valve. Heart size borderline enlarged. Coronary artery and/or coronary artery stenting noted as before. Overlying enlarged mediastinal and hilar lymphadenopathy as before. Abdomen: Hepatic steatosis with cholecystectomy. Lungs: Mild emphysema. Stable subpleural opacity left upper lobe at right major fissure nodule since 2019. No infiltrate or effusion central airways patent Osseous elements:No significant osseous pathology. IMPRESSION: 1. Stable 4.5 cm fusiform aneurysm ascending thoracic aorta bicuspid aortic valve again noted. 2. Mild emphysema without evidence of acute disease or pathologic pulmonary nodularity. 3. Stable mediastinal and hilar lymphadenopathy Communication: Per this written report. NOTE: Management/follow-up of any incidental pulmonary nodules will be based on the Fleischner Society criteria. PAGE 1 Signed Report (CONTINUED) [facility] Ce Name: THIERNO AZUL [facility] Phys: Will [place] [address] : 1965 Age: 59 Sex: M Acct: [id number] Loc: YueCT PHONE #: Exam Date: 10/14/2024 Status: REG CLI FAX #: Rad# [id number] Unit# [id number] Admit Date: 10/14/2024 EXAMS: CPT CODE: [id number] CTA CHEST (AORTA) 25374 Any incidentally noted liver lesions equal to or less than 5 mm, cystic lesions in the kidneys less than 1 cm, and/or adrenal lesions equal to or less than 1 cm, generally are considered highly likely to be benign and no additional evaluation is recommended, unless specifically mentioned in the impression. This report is generated using voice recognition computer software. Inadvertent errors may have occurred while dictating report. Common sense approach is appreciated and do not hesitate to call for clarification when necessary. at 1150 Reported and signed by: SEPIDEH ESQUEDA M.D. CC: Cullen Solis APRN; Rosalva Overton APRN Dictated Date/Time: 10/14/2024 (1150) Technologist: LEE LILLY Transcribed Date/Time: 10/14/2024 (1150) Demolition Specialist: Electronic Signature Date/Time: 10/14/2024 (1150) Printed Date/Time: 10/14/2024 (1153) BATCH NO: N/A PAGE 2 Signed Report CC'ed Logic: Ordering Provider: WILL NG Attending Provider: WILL NG Referring Provider: WILL NG Consulting Provider: PAULA SOLIS NP, S [address] [place] [address],[address], [place], [address], [facility] & [place] 12/01/2024 18:43:20 Problems Name Problem SNOMED Code Status Onset Date Resolution Date Notes Provider Name and Address Organization Details Recorded Time Dyspnea on exertion 46968916 Active 2021 Melsisa Og MD [address] [place] [address],[address], [place], [address], [place] - [facility] - [place] & [place] 2 09:12:09 Heart murmur 42970247 Active 2021 Melissa Og MD [facility] [address], [place], [address], [place] [facility] - [place] & [place] 2 09:12:57 Carotid artery occlusion 961067619 Active 2021 Melissa Og MD [facility] [address], [place], [address], [place] [facility] - [place] & [place] 2 09:13:09 Transient cerebral ischemia 536652797 Active 2021 Melissa Og MD [facility] [address], [place], [address], [place] [facility] - [place] & [place] 2 09:13:14 Essential hypertension 02309629 Active 2021 Melissa Og MD [facility] [address], [place], [address], [place] [facility] - [place] & [place] 2 09:13:32 Thyroid nodule 994403388 Active 2021 Melissa Og MD [facility] [address], [place], [address], [place] [facility] - [place] & [place] 2 08:46:15 Diastolic dysfunction 4953917 Active 2022 Melissa Og MD [facility] [address], [place], [address], [place] [facility] - [place] & [place] 3 08:57:05 Aortic valve stenosis 00814552 Active 2022 Melissa Og MD [facility] [address], [place], [address], [place] [facility] - [place] & [place] 3 08:57:10 Aneurysm of thoracic aorta 110545649 Active 2022 Melissa Og MD [facility],[address] [place] [address], [address], [place] [facility] - [place] & [place] 3 08:57:20 Aneurysm of ascending aorta 711222810 Active 2022 CULLEN SOLIS NP, S [address] [place] [address],[address] [place] [address], [address], [place] [facility] & [place] 3 08:47:55 Coronary arterioscleros is 21129176 Active 2023 CULLEN SOLIS NP, S [address] [place] [address],[address] [place] [address], [address], [place] [facility] & [place] 4 10:55:53 Stented coronary artery 052452012 Active 2023 CULLEN SOLIS NP, S [facility],[address] [place] [address], [address], [place] [facility] - [place] & [place] 4 10:55:54 Problem Notes None recorded. Procedures Surgical History Date Name Laterality Status Provider Name and Address Organization Details Recorded Time 09/14/19 22 Back Surgery completed Dior Mcgrath [place] [facility] [place] 11/03/2022 15:36:22 08/07/20 20 Cardiac Catheterization completed Nina Cruz [place] - [facility] - [place] & [place] 12/31/2022 14:11:26 05/10/20 18 Cardiac Catheterization completed Nina Cruz [place] & [place] 12/31/2022 14:12:08 10/04/19 14 Cardiac Catheterization completed Nina Cruz [place] - [place] - [place] & [place] 12/31/2022 14:12:41 09/14/19 06 Joint Replacement completed Dior Mcgrath [place] [facility] [place] 11/03/2022 15:36:22 Cardiac Catheterization completed Sheri BRUNER - [facility] - [place] & [place] 05/09/2024 10:14:18 procedure on knee completed Dior Mcgrath [place] - [facility] - [place] & [place] 07/09/2022 18:06:28 Cholecystectomy completed Dior Abreuarr [place] - [facility] - [place] & [place] 07/09/2022 18:08:05 vasectomy completed Dior BRUNER - [employer] T - [place] & [place] 07/09/2022 18:08:15 procedure on kidney completed Dior Mcgrath [place] - [facility] - [place] & [place] 07/09/2022 18:08:50 procedure on vein completed Dior BRUNER - [facility] - [place] & [place] 07/09/2022 18:09:08 Back Surgery completed Dior BRUNER - [facility] - [place] & [place] 07/09/2022 18:12:25 Imaging Results None recorded. Procedure Notes None recorded. Medical Equipment None Reported. Allergies Allergen ID Allergen Name Allergen Category Reaction Reaction Severity Criticality Documentation Date Start Date Code Code System Note Provider Name and Address Organization Details Recorded Time 90302 meloxicam medicatio n Not available Not available Not available 07/09/2022 60543 RxNorm Dior Mcgrath null, [place] - [facility] - [place] & [place] 18:00:01 Medications Name Sig Start Date Stop Date Status Note LastModified by Organization Details LastModified Time Prescripti on - Prior Authorizat ion Request active Not Available Not Available Not Available BD Luer-Amilcar Syringe 3 mL 23 x 1 USE TO INJECT TESTOTERO NE active Not Available Not Available No t Available cyclobenza reece 10 mg tablet 06/21 completed Not Available Not Available Not Available amoxicilli n 500 mg capsule 04/18 completed Not Available Not Available Not Available fluconazol e 100 mg tablet 01/01 completed Not Available Not Available Not Available atorvastat in 40 mg tablet TAKE ONE TABLET BY MOUTH EVERY DAY active Not Available Not Available No t Available methocarba mol 500 mg tablet 11/03 completed Not Available Not Available Not Available atorvastat in 80 mg tablet TAKE ONE TABLET BY MOUTH AT BEDTIME active Not Available Not Available No t Available nystatin 100,000 unit/mL oral suspension 04/02 completed four times a daily Not Available Not Available Not Available gabapentin 600 mg tablet TAKE ONE TABLET BY MOUTH THREE TIMES DAILY AFTER meals active Not Available Not Available No t Available doxycyclin e hyclate 100 mg capsule 11/03 completed Not Available Not Available Not Available nicotine 14 mg/24 hr daily transderma l patch 11/03 completed Not Available Not Available Not Available citalopram 40 mg tablet TAKE ONE TABLET BY MOUTH EVERY DAY active Not Available Not Available No t Available azithromyc in 250 mg tablet TAKE 2 TABLETS BY MOUTH ON DAY 1, THEN TAKE 1 TABLET DAILY ON DAYS 2-5 12/01 completed Not Available Not Available Not Available fluconazol e 150 mg tablet 11/03 completed Not Available Not Available Not Available valacyclov ir 1 gram tablet TAKE ONE TABLET BY MOUTH THREE TIMES DAILY FOR SEVEN DAYS 06/21 completed Not Available Not Available Not Available hydrocodon e 5 mg-acetami nophen 325 mg tablet 11/03 completed Not Available Not Available Not Available ondansetro n HCl 8 mg tablet 11/03 completed Not Available Not Available Not Available lisinopril 20 mg tablet 1 tab PO daily active Not Available Not Available No t Available prednisone 20 mg tablet 10/01 completed Not Available Not Available Not Available Alcohol Pads Apply ONE pad EVERY 2 WEEKS TO THE SKIN as needed FOR 30 DAYS, FOR testoster one injection s active Not Available Not Available No t Available clindamyci n HCl 150 mg capsule 11/03 completed Not Available Not Available Not Available clopidogre l 75 mg tablet TAKE ONE TABLET BY MOUTH DAILY active Not Available Not Available No t Available sulfametho xazole 800 mg-trimeth oprim 160 mg tablet TAKE ONE TABLET BY MOUTH TWICE DAILY FOR 7 DAYS -- FINISH ALL MEDICINE -- 04/18 completed Not Available Not Available Not Available omeprazole 40 mg capsule,de layed release 06/21 completed Not Available Not Available Not Available aspirin 81 mg tablet,del ayed release TAKE ONE TABLET BY MOUTH DAILY active Not Available Not Available No t Available tramadol 50 mg tablet Take 1 tablet twice a day by oral route as directed for 30 days. 06/21 completed Not Available Not Available Not Available amoxicilli n 500 mg tablet TAKE ONE TABLET BY MOUTH THREE TIMES DAILY FOR SEVEN DAYS 09/27 completed Not Available Not Available Not Available methocarba mol 750 mg tablet 11/03 completed Not Available Not Available Not Available tamsulosin 0.4 mg capsule TAKE ONE CAPSULE BY MOUTH EVERY DAY AFTER meal(s) active Not Available Not Available No t Available gabapentin 800 mg tablet TAKE ONE TABLET BY MOUTH THREE TIMES DAILY active Not Available Not Available No t Available dicyclomin e 20 mg tablet Take 1 tablet every day by oral route as directed. 03/30 completed Not Available Not Available Not Available cephalexin 500 mg capsule TAKE ONE CAPSULE BY MOUTH TWICE DAILY FOR SEVEN DAYS 05/09 completed Not Available Not Available Not Available pantoprazo le 40 mg tablet,del ayed release TAKE ONE TABLET BY MOUTH DAILY active Not Available Not Available No t Available buspirone 10 mg tablet TAKE ONE TABLET BY MOUTH TWICE DAILY DIRECTED active Not Available Not Available No t Available lisinopril 10 mg tablet 11/03 completed Not Available Not Available Not Available nicotine 21 mg/24 hr daily transderma l patch 11/03 completed Not Available Not Available Not Available nitroglyce rin 0.4 mg sublingual tablet DISSOLVE 1 TABLET UNDER THE TONGUE EVERY 5 MINUTES NEEDED FOR CHEST PAIN. DO NOT EXCEED A TOTAL OF 3 DOSES IN 15 MINUTES. active Not Available Not Available No t Available docusate sodium 100 mg capsule 11/03 completed Not Available Not Available Not Available gabapentin 300 mg capsule 07/09 completed Not Available Not Available Not Available diclofenac sodium 75 mg tablet,del ayed release TAKE ONE TABLET BY MOUTH TWICE DAILY DIRECTED active Not Available Not Available No t Available mupirocin 2 % topical ointment apply SMALL AMOUNT TO affected AREA 2-3 times a DAY NEEDED active Not Available Not Available No t Available metoprolol succinate ER 25 mg tablet,ext ended release 24 hr TAKE ONE TABLET BY MOUTH DAILY 06/21 completed Not Available Not Available Not Available testostero ne cypionate 200 mg/mL intramuscu lar oil INJECT 1ml INTRAMUSC ULARLY EVERY 2 WEEKS active Not Available Not Available No t Available methylpred nisolone 4 mg tablets in a dose pack take as directed ON package 12/01 completed Not Available Not Available Not Available ketoconazo le 2 % topical cream 11/03 completed Not Available Not Available Not Available fluticason e propionate 50 mcg/actuat ion nasal spray,susp ension USE 2 SPRAYS IN EACH NOSTRIL DAILY active Not Available Not Available No t Available meclizine 25 mg chewable tablet 11/03 completed Not Available Not Available Not Available tadalafil 20 mg tablet TAKE ONE TABLET BY MOUTH EVERY DAY FOR 5 DAYS active Not Available Not Available No t Available BD Integra Syringe 3 mL 23 gauge x 1 USE DIRECTED TO INJECT TESTOSTER ONE active Not Available Not Available No t Available duloxetine 30 mg capsule,de layed release TAKE ONE CAPSULE BY MOUTH EVERY DAY active Not Available Not Available No t Available nebivolol 5 mg tablet Take 1 tablet every day by oral route for 30 days. 01/01 completed Not Available Not Available Not Available naloxone 4 mg/actuati on nasal spray 11/03 completed Not Available Not Available Not Available Easy Touch Hypodermic Needle 18 gauge x 1 1/2 USE DIRECTED TO DRAW UP TESTOSTER ONE active Not Available Not Available No t Available Lokelma 10 gram oral powder packet take ONE PACKET BY MOUTH THREE TIMES DAILY FOR 2 DAYS 07/06 completed Not Available Not Available Not Available Vitals Date Recorded Body height Body mass index (BMI) Body weight Oxygen saturation Oxygen saturation in Arterial blood by Pulse oximetry Heart rate Systolic And Diastolic Provider Name and Address Organization Details Last Updated DateTime 5 182.88 cm 34 kg/m2 286963. 97 g 94 % 94 % 75 /min 142/78 mm[Hg] Helga Hampton [facility] & [place] 5 12:27:56 Date Recorded Body height Body mass index (BMI) Body weight Oxygen saturation Oxygen saturation in Arterial blood by Pulse oximetry Heart rate Systolic And Diastolic Provider Name and Address Organization Details Last Updated DateTime 5 182.88 cm 35.3 kg/m2 830365. 45 g 96 % 96 % 77 /min 122/68 mm[Hg] Meera Alvarado [facility] & [place] 5 12:01:29 Date Recorded Body height Body mass index (BMI) Body weight Oxygen saturation Oxygen saturation in Arterial blood by Pulse oximetry Heart rate Systolic And Diastolic Provider Name and Address Organization Details Last Updated DateTime 4 182.88 cm 34.2 kg/m2 446696. 71 g 98 % 98 % 73 /min 120/88 mm[Hg] Sheri Blount [facility] & [place] 4 10:17:26 Date Recorded Body height Body mass index (BMI) Body weight Heart rate Respiratory rate Systolic And Diastolic Provider Name and Address Organization Details Last Updated DateTime 4 182.88 cm 33.6 kg/m2 479095. 19 g 67 /min 16 /min 112/78 mm[Hg] Marialuisa Thapa [facility] & [place] 4 11:46:45 Date Recorded Body height Body mass index (BMI) Body weight Oxygen saturation Oxygen saturation in Arterial blood by Pulse oximetry Heart rate Systolic And Diastolic Provider Name and Address Organization Details Last Updated DateTime 4 182.88 cm 34.2 kg/m2 398883. 28 g 93 % 93 % 85 /min 100/64 mm[Hg] Aarti Torreslupillo deleon [facility] & [place] 4 12:52:23 Social History Question Answer Notes LastModified by [employer] Details LastModified Time Tobacco Smoking Status Former Smoker Dior coronado, [facility] & [place] 07/09/2022 18:06:07 Do You Have An Advance Directive? No Information not available 10/01/2023 Are You Blind Or Do You Have Difficulty Seeing? No Information not available 10/01/2023 When Did You Quit Smoking? 1-5yearssinc elastcigaret te Information not available 10/01/2023 What Was The Date Of Your Most Recent Tobacco Screening? 10/31/2022 [email or web address] Information not available 04/02/2023 Are You Passively Exposed To Smoke? No Information not available 11/03/2022 How Much Tobacco Do You Smoke? No Information not available 11/03/2022 Sex: Unknown Functional Status Question Answer Note LastModified by [employer] Technologies Details LastModified Time Do you use any illicit or recreational drugs? No Information not available 11/03/2022 What is your level of alcohol consumption? None Information not available 11/03/2022 Do you or have you ever used smokeless tobacco? Never used smokeless tobacco [email or web address] Information not available 04/02/2023 What is your exercise level? Moderate [email or web address] Information not available 04/02/2023 Mental Status None recorded. Family History Relationship Description Onset Age of this Age Resolved Age Notes LastModified by Organization Details LastModified Time Mother Disorder of endocrine system pt. added direct ly (07/06) API-13 Not available 07/06/2022 20:01:16 Mother Diabetes mellitus [email or web address] Not available 2024 11:54:38 Mother Family history of malignant neoplasm [email or web address] Not available 2024 11:54:38 Father Family history of malignant neoplasm [email or web address] Not available 2024 11:54:38 Medical History Condition Response Depression Y Arthritis Y Hyperlipidemia Y Back Problems Y GERD/Reflux Y Hypertension Y Past Encounters Encounter ID Performer Location Encounter Start Date Encounter Closed Date Diagnosis/Indication Diagnosis SNOMED-CT Code Diagnosis ICD10 Code Diagnosis Note [id number] Melissa Og MD [address] MONTANEZ [address] [place] [address] 6 07/09/2022 08:52:18 07/09/2022 09:11:45 Dyspnea on exertion 84979736 R06.09 Heart murmur 05131286 R0 1.1 Carotid ar marj occlusion 961091282 I65.29 Transient cerebral ischemia 459604129 G45.9 Essential hypertension 27220397 I10 [id number] Melissa Og MD [address]ONT[address]Z [address] [place] [address] 6 08/05/2022 08:28:14 08/05/2022 08:45:52 Thyroid nodule 686166676 E04.1 Carotid ar marj occlusion 871326305 I65.29 Essential hypertension 70264119 I10 Heart murmur 27285770 R0 1.1 Dyspnea on exertion 6084 5006 R06.09 [id number] Melissa Og MD [address]ONTANEZ [address] [place] [address] 6 11/03/2022 08:41:02 11/03/2022 09:44:25 Angina pectoris 345110106 I20.9 Essential hypertension 39591422 I10 Heart murmur 15143036 R0 1.1 Aortic valve stenosis 60 933692 I35.0 Thyroid nodule 776900939 E04.1 Thyroid ultrasound revealed benign nodule requiring no further evaluation or monitoring . Carotid ar marj stenosis 44787887 I65.23 Carotid ar marj occlusion 288146898 I65.29 Dyspnea on exertion 6084 5006 R06.09 [id number] Melissa Og MD [address] MONTANEZ [address] [place], [place] [id number] 11/27/2022 08:36:50 11/27/2022 09:33:48 Former heavy tobacco smoker [id number] 51290 Z87.891 Essential hypertension 67595125 I10 Carotid ar marj stenosis 03538663 I65.23 Heart murmur 42699832 R0 1.1 Aortic valve stenosis 60 266200 I35.0 Thyroid nodule 223026711 E04.1 Thyroid ultrasound revealed benign nodule requiring no further evaluation or monitoring . Carotid ar marj occlusion 282567146 I65.29 Dyspnea on exertion 6084 5006 R06.09 [id number] Melissa Og MD [address] [place] [phone] 01/01/2023 08:09:19 01/01/2023 08:40:36 Essential hypertension 68420270 I10 Dyspnea on exertion 6084 5006 R06.09 Carotid ar marj occlusion 971158876 I65.29 Diastolic dysfunction 35 49237 I51.9 Aortic valve stenosis 60 093501 I35.0 Aneurysm o f thoracic aorta 689078138 I71.20 [id number] CULLEN SOLIS NP, S [address]ONTANEZ [address] [place] [address] 04/02/2023 07:51:26 04/02/2023 08:41:40 Former heavy tobacco smoker [id number] 49082 Z87.891 Essential hypertension 17996204 I10 Carotid ar marj stenosis 05382223 I65.23 Heart murmur 56467478 R0 1.1 Aortic valve stenosis 60 118550 I35.0 Carotid ar marj occlusion 113744656 I65.23 Dyspnea on exertion 6084 5006 R06.09 Aneurysm o f ascending aorta 227832511 I71.20 [id number] CULLEN SOLIS NP, S [address] MONTANEZ [address] [place], [place] [phone] 10/01/2023 07:54:28 10/01/2023 08:44:05 Dyspnea on exertion 13585712 R06.09 Aneurysm o f ascending aorta 739583832 I71.20 Essential hypertension 10519018 I10 Aortic valve stenosis 60 128402 I35.0 Heart murmur 66369449 R0 1.1 Former hea vy tobacco smoker [id number] 56063 Z87.891 Carotid ar marj stenosis 61241669 I65.23 Carotid ar marj occlusion 432524463 I65.23 [id number] CULLEN SOLIS NP, S [address] MONTANEZ [address] [place] [address] 6 04/18/2024 13:54:14 04/18/2024 15:10:24 Essential hypertension 19474180 I10 Progressive angina 51798 6006 I20.0 Dizziness 915382968 R42 Dyspnea on exertion 6084 5006 R06.09 Intermitte nt claudication 34690487 I73.9 Aneurysm o f ascending aorta 554529463 I71.20 Aortic valve stenosis 60 380185 I35.0 Heart murmur 71526293 R0 1.1 Former hea vy tobacco smoker [id number] 09509 Z87.891 Carotid ar marj stenosis 25124704 I65.23 Carotid ar marj occlusion 819146258 I65.23 [id number] CULLEN SOLIS NP, S [address] MONTANEZ [address] [place] [id number] 6 05/09/2024 09:27:56 05/09/2024 11:03:54 Essential hypertension 58033441 I10 Dizziness 722550160 R42 Intermitte nt claudication 12331347 I73.9 Aneurysm o f ascending aorta 449171647 I71.20 Aortic valve stenosis 60 857636 I35.0 Heart murmur 88517626 R0 1.1 Former hea vy tobacco smoker [id number] 58464 Z87.891 Carotid ar marj stenosis 40577320 I65.23 Coronary arteriosclerosis 49723209 I25.10 Stented co ronary artery 739159543 Z95.5 [id number] CULLEN SOLIS NP, S [address] MONTANEZ [address] [place] [address] 6 06/21/2024 11:41:07 06/21/2024 12:08:12 Essential hypertension 95286582 I10 Intermitte nt claudication 87549533 I73.9 Aneurysm o f ascending aorta 142421567 I71.20 Aortic valve stenosis 60 360495 I35.0 Heart murmur 55571413 R0 1.1 Former hea vy tobacco smoker [id number] 55121 Z87.891 Carotid ar marj stenosis 44712898 I65.23 Coronary arteriosclerosis 95693925 I25.10 Stented co ronary artery 609015373 Z95.5 Peripheral arterial occlusive disease 569259904 I73.9 [id number] CULLEN SOLIS NP, S [address] MONTANEZ [address] [place] [address] 6 07/06/2024 12:39:19 07/06/2024 13:21:38 Essential hypertension 59060462 I10 Intermitte nt claudication 74152685 I73.9 Aneurysm o f ascending aorta 874289071 I71.20 Aortic valve stenosis 60 892044 I35.0 Heart murmur 69646050 R0 1.1 Carotid ar marj stenosis 90675923 I65.23 Coronary arteriosclerosis 18880414 I25.10 Stented co ronary artery 931050754 Z95.5 Neuropathy 003658441 G62 .9 Fatigue 10860532 R53.83 [id number] CULLEN SOLIS NP, S [address] MONTANEZ [address] [place] [address] 6 09/27/2024 12:09:49 09/27/2024 13:23:42 Essential hypertension 87850141 I10 Intermitte nt claudication 92410074 I73.9 Aneurysm o f ascending aorta 848156901 I71.20 Aortic valve stenosis 60 088778 I35.0 Heart murmur 11546597 R0 1.1 Carotid ar marj stenosis 06263283 I65.23 Coronary arteriosclerosis 83826482 I25.10 Stented co ronary artery 892939129 Z95.5 Neuropathy 568982285 G62 .9 [id number] CULLEN SOLIS NP, S [address] [place] [address] 12/01/2024 11:53:22 12/01/2024 12:31:57 Essential hypertension 49889530 I10 Intermitte nt claudication 24201534 I73.9 Aneurysm o f ascending aorta 427230131 I71.20 Aortic valve stenosis 60 917272 I35.0 Heart murmur 71662342 R0 1.1 Carotid ar marj stenosis 31261766 I65.23 Coronary arteriosclerosis 33636448 I25.10 Stented co ronary artery 524893803 Z95.5 Health Concerns Section Related Observation LastModified by Organization Detai ls LastModified Time None Recorded Concern Status LastModified by Organization Details LastModified Time None Recorded Advance Directives Directive N: Payers Insurance Date Sequence Insurance Name Policy Number Policy Tripp Covered Member ID Tripp Member ID Guarantor Name 12/07/2024 1 CAMILO-HI: [facility] [id number] 1 Thierno Danya Azul [id number] Thierno Hagan Latha Notes Date Note Type Note Provider Name and Address Organization Details Recorded Time 05/09/2024 text/html Thierno is a 58 year-old male who is seen today in follow up. The patient has a history significant for hypertension, hyperlipidemia, aortic valve stenosis, and bilateral carotid artery stenosis. Since our last visit, the patient underwent left heart catheterization with PTCA and stenting of the proximal/mid 1st diagonal branch of the LAD. The patient reports that he is feeling much better. No more chest pain or shortness of breath. The patient continues to have intermittent claudication is bilateral lower extremities. The patient also reports some dizziness and lightheadedness which worsens with exertion and improves with rest. No other complaints or concerns. Groin healing, nontender. CULLEN SOLIS NP, S [address] [place] [address],[address], [place], [address], [place] - [facility] - [place] & [place] 05/09/2024 17:23:03 06/21/2024 text/html Thierno is a 58 year-old male who is seen today in follow up. The patient has a history significant for hypertension, hyperlipidemia, aortic valve stenosis, and bilateral carotid artery stenosis. Since our last visit, the patient had an REX that revealed calcific PVD. The patient continues to have progressive intermittent claudication now limiting his ability to perform activities of daily living. The patient's pain is moderate to severe at times. It generally improves with rest. The patient can not tolerate walking relatively short distance on level ground at normal pace. No other complaints or concerns. CULLEN SOLIS NP, S [address] [place] [address],[address], [place], [address], [facility] & [place] 06/21/2024 18:00:27 07/06/2024 text/html Thierno is a 58 year-old male who is seen today in follow up. The patient has a history significant for hypertension, hyperlipidemia, aortic valve stenosis, and bilateral carotid artery stenosis. Since our last visit, the patient underwent a runoff with Dr. Og that revealed normal abdominal aorta, normal renal arteries, and normal three-vessel runoff to the foot bilaterally with no significant PVD. The patient continues to have bilateral leg pain consistent with prior symptomatology. The patient has pain when standing and walking, and occasionally has numbness, that occurs every day. This is incompletely controlled with gabapentin. No other complaints or concerns. Groin nontender, healing well. CULLEN SOLIS NP, S [address] [place] [address],[address], [place], [address], [facility] & [place] 07/06/2024 15:43:12 09/27/2024 text/html Thierno is a 58 year-old male who is seen today in follow up. The patient has a history significant for hypertension, hyperlipidemia, aortic valve stenosis, and bilateral carotid artery stenosis. Since our last visit, the patient reports that he has been doing well. The patient has no cardiovascular or cardiopulmonary complaints. Tolerating medications well. The patient reports that he stopped taking his lisinopril and he stopped having episodes of presyncope and fatigue. No other complaints or concerns. CULLEN SOLIS NP, S [address] [place] [address],[address], [place], [address], [facility] & [place] 09/27/2024 17:20:44 12/01/2024 text/html Thierno is a 59 year-old male who is seen today in follow up. The patient has a history significant for hypertension, hyperlipidemia, aortic valve stenosis, and bilateral carotid artery stenosis. Since our last visit, the patient reports he is chronic, intermittent, exertional shortness of breath that improves with rest. The patient has occasional dizziness with position changes although this is mild and transient. The patient has some swelling in his lower legs, although he reports that this has been worsened since he has been on steroids for an acute illness. No other complaints or concerns. CULLEN SOLIS NP, S [address] [facility],[address], [place], [address], [place] 12/01/2024 18:43:59
--- OUTSIDE RECORDS SUMMARY | 2025-03-27 10:11 | XMS_ITS | Clinical Summary ---
Author Organization [facility] Address [address] [place] [address] Phone Care Team Providers Care White Metal Corrosion Proofer Name Role Phone MarbellaMary diane Aaron Primary Care Provider Allergies Active Allergy Reactions Criticality Noted Date Comments Meloxicam Itching,Other (See Comments),Rash High Medications diclofenac (VOLTAREN) 75 mg Oral Tablet, Delayed Release (E.C.) Take 75 mg by mouth 2 times daily. Active busPIRone (BUSPAR) 10 mg Oral Tablet Take by mouth 2 times daily. Active atorvastatin (LIPITOR) 80 mg Oral Tablet Take 80 mg by mouth nightly. 4 Active clopidogreL (PLAVIX) 75 mg Oral Tablet Take 1 Tablet by mouth daily. 4 Active aspirin 81 mg Oral Tablet, Delayed Release (E.C.) Take 1 Tablet by mouth daily. Active pantoprazole (PROTONIX) 40 mg Oral Tablet, Delayed Release (E.C.) Take 1 Tablet by mouth daily. Active gabapentin (NEURONTIN) 800 mg Oral TabletIndications:P eripheral polyneuropathy Take 1 Tablet by mouth 3 times daily. 90 Tablet 5 4 Active Active Problems Problem Noted Date Diagnosed Date Acute blood loss anemia 11/25/2015 Depression 11/24/2015 Primary osteoarthritis of right knee 05/14/2012 Immunizations Immunization Administration Dates Next Due Tdap 05/03/2021 Surgical History Surgery Date Site/Laterality Comments BLADDER SURGERY 2 ors for stones CHOLECYSTECTOMY KNEE JOINT MANIPULATION 06/17/2012 Left CLOSED MANIPULATION LEFT KNEE; Surgeon: Koby Garcia MD; Location: [facility]; Service: Orthopedics VASECTOMY FOREIGN BODY REMOVAL 05/24/2010 Left thigh KNEE ARTHROSCOPY 05/21/2010 Left x2 KNEE ARTHROSCOPY 05/11/2015 Right RIGHT KNEE ARTHROSCOPY DEBRIDEMENT MEDIAL MENISCECTOMY CHONDROPLASTY ; Surgeon: Koby Garcia MD; [facility]; Service: Orthopedics SHOULDER SURGERY Left KNEE SURGERY Right scope x2 TOTAL KNEE ARTHROPLASTY 05/11/2012 Left LEFT TOTAL KNEE REPLACEMENT; Surgeon: Koby Garcia MD; Location: [facility]; Service: Orthopedics Medical devices from this surgery are in the Medical Devices section. TOTAL KNEE ARTHROPLASTY 11/23/2015 Right RIGHT TOTAL KNEE ARTHROPLASTY ; Surgeon: Koby Garcia MD; Location: [facility]; Service: Orthopedics Medical devices from this surgery are in the Medical Devices section. ORTHOPEDIC SURGERY Medical History Medical History Date Comments Depression Kidney stones Postoperative nausea and vomiting Chronic pain left knee Heartburn occassional Headache(784.0) Migraines MRSA (methicillin resistant Staphylococcus aureus) 2012 found preop with nasal swab for TKR Anesthesia complication slow to wake up Motion sickness a little bit Osteoarthritis knees, all over Hypertension Family History Medical History Relation Name Comments Cancer Father stomach Diabetes Mother High Blood Pressure Mother Anesth Problems Neg Hx Heart Disease Neg Hx Relation Name Status Comments Father Mother Social History Tobacco Use Types Packs/Day Years Used Date Smoking Tobacco: Former Cigarettes 1.5 18 1 - 07/09/2021 Smokeless Tobacco: Never Tobacco Cessation:Counseling Given: Not Answered Comments:quit 24 years ago; again 2 weeks ago Alcohol Use Standard Drinks/Week Comments No 0 (1 standard drink = 0.6 oz pur e alcohol) Sex and Gender Information Value Date Recorded Sex Assigned at Not on file Legal Sex Male 7:24 AM EDT Gender Identity Not on file Sexual Orientation Not on file Obstetrics History Last Filed Vital Signs Vital Sign Reading Time Taken Comments Blood Pressure 128/80 12/15/2024 10:22 AM EDT Pulse 77 12/15/2024 10:22 AM EDT Temperature 36.7 C (98 F) 12/15/2024 10:22 AM EDT Respiratory Rate 18 08/03/2016 3:33 PM EST Oxygen Saturation 98% 12/15/2024 10:22 AM EDT Inhaled Oxygen Concentration - - Weight 114.3 kg (252 lb) 12/15/2024 10:22 AM EDT Height 182.9 cm (6') 12/15/2024 10:22 AM EDT Body Mass Index 34.18 12/15/2024 10:22 AM EDT Plan of Treatment Upcoming Encounters Date Type Department Care Team (Late st Contact Info) Description 06/30/2025 8:00 AM EDT Office Visit SEP Neurology [facility] [address] [place] [place] [address] Koby Wilson MD [address] [place] [address] Health Maintenance Due Date Last Done Comments Annual Wellness Exam 1969 Cologuard 2011 Colon Cancer Screening 2011 Colonoscopy 2011 FIT 2011 Sigmoidoscopy 2011 Virtual Colonography 2011 Low Dose Lung Cancer Screening 2016 Pneumococcal Vaccine 50+ (1 of 1 - PCV) 2016 Zoster (1 of 2) 2016 11/15/2018 COVID-19 Vaccine ( - 2023-2 5 season) 2024 Influenza Vaccine (#1) 2025 , 07/12/2021, 07/14/2018 DTaP/TDaP/Td (3 - Td or Tdap) 05/03/2031, 12/24/2016, 08/16/1996 Hepatitis B Vaccine Completed 01/13/1997, 08/16/1996, 07/15/1996 Meningococcal B Vaccine Aged Out No l onger eligible based on patient's age to complete this topic Goals Goal Patient Goal Type Associated Problems Recent Progress Patient-Stated? Author Blood Pressure < 140/90 Blood Pressure 128/80(2024 10:22 AM EDT) No Toner, Liyah L Maintain a healthy diet, exercise regularly and maintain an ideal body weight General No Toner, Liyah L Stay Tobacco Free Lifestyle No Toner, Liyah L Medical Devices Implanted Type Area Beverage Manager Device Identifier Shelf Expiration Date Model / Serial / Lot Graft Tissue Natural Denovo - [id number] Implanted:Qty: 1 on 05/21/2010 at [facility] GEO:GEO 5606-000 - 11 / / [id number] Patella All Poly Nexgen 35mm - [id number] Implanted:Qty: 1 on 05/11/2012 by Koby Garcia MD at [facility] Left: Patella GEO:GEO 02/12/2020 5972-065- 35 / / [id number] [employer] Bone Cement With Gentamycin - [id number] Implanted:Qty: 1 on 05/11/2012 by Koby Garcia MD at [facility] Left: Knee GEO:GEO 09/14/2015 1113-140 - 01 / / [id number] Component Femoral Porous Cr-Flex Left Size F Minus - [id number] Implanted:Qty: 1 on 05/11/2012 by Koby Garcia MD at [facility] Left: Femur GEO:GEO 09/13/2020 5952-01 6- 05 / / [id number] Plate Tibial Precoat Stemmed Nexgen Size 7 - [id number] Implanted:Qty: 1 on 05/11/2012 by Koby Garcia MD at [facility] Left: Tibia GEO:GEO 03/13/2022 5980-05 7- / / [id number] Surface Articular Cr Nexgen Blue 12mm Mld - [id number] Implanted:Qty: 1 on 05/11/2012 by Koby Garcia MD at [facility] GEO:GEO 10/14/2016 5952-050 - 12 / / [id number] Femur Tm Cr Persona Standard Porous Right Size 7 - [id number] Implanted:Qty: 1 on 11/23/2015 by Koby Garcia MD at [facility] Right: Knee GEO:GEO 03/13/2025 42-5028 -0 62-02 / / [id number] Surface Articulating Cr Fixed Bearing Persona Right 12 Mm - [id number] Implanted:Qty: 1 on 11/23/2015 by Koby Garcia MD at [facility] Right: Knee GEO:GEO 08/13/2019 42-5220 -0 06-12 / / [id number] [employer] Bone [employer]ement With Gentamycin - [id number] Implanted:Qty: 1 on 11/23/2015 by Koby Garcia MD at [facility] Right: Knee GEO:GEO 05/14/2019 1113-14 0- 01 / / [id number] Patella All Poly Cemented Persona 35mm 9.0mm Thickness - [id number] Implanted:Qty: 1 on 11/23/2015 by Koby Garcia MD at [facility] Right: Knee GEO:GEO 05/13/2022 42-5400 -0 00-35 / / [id number] Tibia Cemented Persona 5 Degree Stemmed Right Size G - [id number] Implanted:Qty: 1 on 11/23/2015 by Koby Garcia MD at [facility] Right: Knee GEO:GEO 08/13/2025 42-5320 -0 79-02 / / [id number] Synchromed Iii Pain Pump-11/20/2023 Implanted:2023 by Paulie Dick MD (Quantity not on file) [employer] 8667-20 / [id number] / Insurance ANTHEM PPO ANTHEM PPO GENERIC WORKERS' COMP on file [facility] GENERIC WORKERS' COMP GENERIC WORKERS' COMP GENERIC WORKERS' COMP GENERIC WORKERS' COMP GENERIC WORKERS' COMP Advance Directives For more information, please contact: [phone] * Full Code (Latest Code Status on File) Date Activated Date Inactivated Comments 11/23/2015 7:16 PM 11/25/2015 8:13 PM * Full Code Date Activated Date Inactivated Comments 05/11/2012 6:09 PM 05/14/2012 4:46 PM Care Teams White Metal Corrosion Proofer Relationship Specialty Start Date End Date Mary Valencia [address] [place] [address] PCP - General 05/15/10
--- OUTSIDE RECORDS SUMMARY | 2025-03-27 10:12 | XMS_ITS | Clinical Summary ---
Author Organization [facility] Address [address] [place] [address] Care Team Providers Care Tool Mechanic Name Role Phone Pcp, No Primary Care Provider [phone] Source Comments This information has been disclosed to you from confidential records protectedfrom disclosure by state law. You shall make no further disclosure of thisinformation without the specific, written, andinformed release of theindividual to whom it pertains, or as otherwise permitted by law. A generalau thorization for the release of medical or other information is not sufficientfor the purposes of the release of HIV test results or diagnoses. [id number] Allergies Active Allergy Reactions Criticality Noted Date Comments Meloxicam Itching 04/15/2016 Penicillins 07/01/2022 Medications gabapentin (NEURONTIN) 600 MG tablet Take 600 mg by mouth 2 times a day. Active diclofenac (VOLTAREN) 75 MG EC tablet Take 75 mg by mouth 2 times a day. Active citalopram (CELEXA) 20 MG tablet Take 20 mg by mouth daily. Active cyanocobalamin, vitamin B-12, 5,[address] under the tongue. Active amitriptyline (ELAVIL) 25 MG tabletIndicatio ns:Neuropathic pain Take 2 tablets (50 mg total) by mouth at bedtime. 60 tablet 5 02/03/2017 Active naloxone (NARCAN) 4 mg/actuation [place] Apply 1 spray in one nostril if needed. Call 911. May repeat dose in other nostril if no response in 3 minutes. 2 each 1 07/01/2022 Active clindamycin (CLEOCIN) 150 MG capsuleIndicati ons:Left foot pain Take 1 capsule (150 mg total) by mouth 3 times a day. 30 capsule 08/18/2022 Active Active Problems Problem Noted Date Diagnosed Date Candidiasis 11/02/2022 Neuropathy 09/08/2022 Left foot pain 08/19/2022 History of spinal fusion 03/17/2022 DDD (degenerative disc disease), lumbar 11/10/19 Lumbar radicular syndrome 09/22/2021 Heat exposure 03/28/2021 Elevated CK 03/28/2021 Kidney stone 12/12/2020 Multiple joint pain 12/12/2020 Nicotine dependence 07/04/2020 Chronic anxiety 03/05/2020 Chronic osteoarthritis 06/06/2019 Gastroesophageal reflux disease 01/18/2017 Primary erectile dysfunction 11/18/2016 Essential hypertension 06/27/2016 Neuropathic pain 04/28/2016 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 Acute blood loss anemia 11/25/2015 Depression 11/24/2015 Primary osteoarthritis of right knee 05/14/2012 Social History Tobacco Use Types Packs/Day Years Used Date Smoking Tobacco: Former Cigarettes Smokeless Tobacco: Former Comments:quit 1990 Alcohol Use Standard Drinks/Week Comments No 0 (1 standard drink = 0.6 oz pur e alcohol) Sex and Gender Information Value Date Recorded Sex Assigned at Not on file Legal Sex Male 9:11 PM EST Gender Identity Not on file Sexual Orientation Not on file Last Filed Vital Signs Vital Sign Reading Time Taken Comments Blood Pressure 131/66 07/01/2022 8:48 PM EDT Pulse 64 07/01/2022 8:48 PM EDT Temperature 36.5 C (97.7 F) 07/01/2022 5:02 PM EDT Respiratory Rate 16 07/01/2022 8:48 PM EDT Oxygen Saturation 98% 07/01/2022 8:48 PM EDT Inhaled Oxygen Concentration 98% 07/01/2022 8 :48 PM EDT Weight 109.8 kg (242 lb) 09/16/2022 2:08 PM EST Height 182.9 cm (6') 01/27/2023 8:23 AM EDT Body Mass Index 32.82 09/16/2022 2:08 PM EST Plan of Treatment Health Maintenance Due Date Last Done Comments ASCVD Assessment 1966 Abnormal Colonoscopy Follow Up 1966 Depression Monitoring (PHQ-9) 1966 Hepatitis C Screening (MyChart) 1966 Alcohol Misuse Screening 1984 HIV Screening 1984 Cologuard (FIT-DNA) 2011 Colonoscopy 2011 Colorectal Cancer Screening (MyChart) 2011 Stool Testing (gFOBT) 2011 Immunization: Pneumococcal ( 1 of 1 - PCV) 2016 Immunization: Zoster (1 of 2) 2016 Lung Cancer Screening 2016 Renal Function/GFR 03/28/2022 03/28/2021, 0 03/28/2021, 03/28/2021, Additional history exists Immunization: COVID-19 ( season) 2024 07/12/2021, 12/12/2020 Immunization: Influenza (MyC nuno) (#1) 2025 07/12/2021, 07/14/2018 Immunization: DTaP/Tdap/Td ( 3 - Td or Tdap) 05/03/2031 05/03/2021, 12/24/2016, 08/16/1996 Immunization: Hepatitis B Completed 1996, 08/16/1996, 07/15/1996 Procedures Procedure Name Priority Date/Time Associated Diagnosis Comments RENAL FUNCTION PANEL W/EGFR STAT 03/28/2021 2:07 AM EDT from Last 3 Months or Most Recently Relevant to Health Maintenance Results * (ABNORMAL) Renal Function Panel w/EGFR (03/28/2021 2:07 AM EDT) Sodium 137 133 - 146 mmol/L 03/28/2021 3:26 AM EDT [facility] Potassium 3.9 3.5 - 5.3 mmol/L 03/28/2021 3:26 AM EDT [facility] Chloride 105 98 - 110 mmol/L 03/28/2021 3:26 AM EDT [facility] CO2 24 21 - 33 mmol/L 03/28/2021 3:26 AM EDT [facility] Anion Gap 8 3 - 16 mmol/L 03/28/2021 3:26 AM EDT [facility] BUN 29(H) 7 - 25 mg/dL 03/28/2021 3:26 AM T LAB Creatinine 1.35(H) 0.60 - 1.30 mg/dL 03/28/2021 3:26 AM T LAB Glucose 112(H) 70 - 100 mg/dL 03/28/2021 3:26 AM T LAB Calcium 8.9 8.6 - 10.3 mg/dL 03/28/2021 3:26 AM T LAB Phosphorus 3.8 2.1 - 4.7 mg/dL 03/28/2021 3:26 AM [facility] Albumin 3.8 3.5 - 5.7 g/dL 03/28/2021 3:26 AM T LAB Osmolality, Calculated 291 278 - 305 mOsm/kg 03/28/2021 3:26 AM [facility] eGFR AA CKD-EPI 68 See note. 3:26 AM [facility] Comment: As of 2015 the estimated GFR is calculated from serum creatinine using the Chronic Kidney Disease Epidemiology Collaboration (CKD-EPI) equation in patients 18 years and older. The reference range is >60 mL/min/1.73m2. eGFR values greater than 90 will be reported as >90mL/min/1.73m2. Reference: Marquez Bowman Schmid CH, Zhang YL, 3rd Wagner Feldman HI, et. al. A new equation to estimate glomerular filtration rate. [employer] Med. 2009:150(9):604-12 eGFR NONAA CKD-EPI 59 See note. 2020 3:26 AM [facility] Comment: As of 2015 the estimated GFR is calculated from serum creatinine using the Chronic Kidney Disease Epidemiology Collaboration (CKD-EPI) equation in patients 18 years and older. The reference range is >60 mL/min/1.73m2. eGFR values greater than 90 will be reported as >90mL/min/1.73m2. Reference: Marquez Bowman Schmid CH, Zhang YL, Castro AF, 3rd, Feldman HI, et. al. A new equation to estimate glomerular filtration rate. [employer] Med. 2009:150(9):604-12 Plasma specimen (specimen) 03/28/2021 2:07 AM EDT 03/28/2021 2:11 AM EDT Juan Diego Padron MD LAB BLOOD ORDERABLES Fin al Result LAB [address] [place] [address], [facility] from Last 3 Months or Most Recently Relevant to Health Maintenance Insurance [employer] NON [place] Member Subscriber Plan / Payer (Ef fective 2022-Present) Name:Thierno Azul Relation to Subscriber:Self Name:JosiahmaxineJerry caballeroneth Payer ID:[id number] Group ID:Not on file Type:Work Comp Address: [address] [place] [address] GENERIC [employer] NON [place] Member Subscriber Plan / Payer (Ef fective 2022-Present) Name:Thierno Azul Relation to Subscriber:Self Name:Thierno Azul Payer ID:[id number] Group ID:Not on file Type:Work Comp Address: [address] [place] [address] BLUE [employer]ESS Advance Directives For more information, please contact: [phone] * Full Code (Latest Code Status on File) Date Activated Date Inactivated Comments 03/27/2021 11:31 PM 03/28/2021 7:08 PM Care Teams Tool Mechanic Relationship Specialty Start Date End Date Pcp, No No Address PCP - General 07/01/22
--- OUTSIDE RECORDS SUMMARY | 2025-03-27 10:12 | XMS_ITS | Data Portability ---
Author Organization [facility] Address [address] [place] [address] Assessment Encounter Date Assessment Date Assessment LastModified by Organization Details LastModified Time 12/16/2024 12/16/2024 discussed correlation with [place] and lowT. would like to eventually transition him to [id number] apts for his work schedule. will try cialis 20mg daily for ED continue flomax. discussed TRT options, suspect weight gain related to possibly elevated estrogen since his testo was so low when we started. we will adjust his dose to weekly and check his estradiol level today to see if we need to place him on a buck we will see him back in a month for refills nilda Not available 12/16/2024 08:51:27 01/25/2025 01/25/2025 discussed correlation with [place] and lowT. would like to eventually transition him to [id number] apts for his work schedule. will try cialis 20mg daily for ED continue flomax. did discuss referral for cystoscopy but he declines currently. discussed TRT options, feels much better on weekly injections. we will continue this and have him get labs this thursday which is 3 days post injection. we will have him see PCP february-april for refills we will follow up with him in may for his testo then and maribel given him a lab order to get done in april. nilda Not available 01/26/2025 11:34:02 Plan of Treatment Reminders Order Date Submit Date Provider Last Modified By Organization Details Last Modified Time Details Appointments Follow Up 2024 02:40P M Rosalva Brooklynn, FISH HATCHERY SUPERINTENDENT Not available Not available Not available Follow Up 20 2024 04:20P M Francoise [place], FISH HATCHERY SUPERINTENDENT Not available Not available Not available Lab CBC w/ auto diff 2024 025 [facility], [address], Tar[place] [address], [place], [address], 01/28/2025 06:51:43 testoste zoltan, total, serum 2024 025 [facility], [address], [address] [address], [place], [address], 01/28/2025 06:51:43 CBC w/ auto diff - GET LABS 3-4 DAYS AFTER TESTOSTE ZOLTAN INJECTIO N. 2024 025 [facility], [address], [place] [address], [place], [address], 01/25/2025 16:59:07 testoste zoltan, total, serum - GET LABS 3-4 DAYS AFTER TESTOSTE ZOLTAN INJECTIO N. 2024 025 [facility], [address], [place] [address], [place], [address], 01/25/2025 16:59:07 drug screen, urine [address], [address] [place], [address], 01/25/2025 16:54:08 estradio l, serum 2024 025 [facility], [address], [place] [address], [place], [address], 12/17/2024 06:47:10 drug screen, urine [address], [address] [place], [address], 12/16/2024 08:34:30 urinalys is, dipstick 2024 025 [facility], [address] [place], [address], 12/01/2024 09:10:19 culture, urine 2024 025 [facility], [address], [address] , [place], [address], 12/03/2024 03:36:38 Referral None recorded . Procedures None recorded . Surgeries None recorded . Imaging electrom yogram + nerve conducti on study 2024 025 [facility], [address] [place], [address], 12/14/2024 09:28:39 Medication Orders testoste zoltan cypionat e 200 mg/mL intramus cular oil 2024 025 [facility], [address], [place], [address], 02/27/2025 08:46:39 testoste zoltan cypionat e 200 mg/mL intramus cular oil 2024 025 [facility], [address] [place] [address] [address] [place], [id number], 01/26/2025 14:44:10 tamsulos in 0.4 mg capsule 2024 025 [facility], [address] [place] [address] [address] [place], [place], [id number], 01/25/2025 17:22:59 furosemi de 20 mg tablet 2024 025 [facility], [address] [place] [address] [address] [place], [id number], 01/23/2025 14:39:59 testoste zoltan cypionat e 200 mg/mL intramus cular oil 2024 025 [place] Bryn [facility], [address] [place] [address] [address] [place], [place], [id number], 12/16/2024 14:59:08 tamsulos in 0.4 mg capsule 2024 025 KELL[place]ERVA Clemente [facility], [address] [place] [address] [address] [place], [place], [id number], 01/23/2025 14:39:57 Patient TargetsNo targets recorded. Patient Instructions Encounter Date Encounter Id Patient Instructions Last Modified By Organization Details Last Modified Time 12/01/2024 [id number] Discussed with p t results of U/A Advised to take medication as directed Will call with results of culture and imaging once available Encouraged to follow heart healthy lifestyle - low fat diet and aim for 30 minutes per day of physical exercise. To call office for questions, concerns or issues Not available 12/01/2024 10:41:31 12/16/2024 [id number] kidney stone: care instructions Not available 12/16/2024 08:34:30 Erection Problems: Care Instructions Not available 12/16/2024 08:34:30 starting a weigh t loss plan: care instructions Not available 12/16/2024 08:34:30 sleep apnea: car e instructions Not available 12/16/2024 08:34:30 benign prostatic hyperplasia: care instructions Not available 12/16/2024 08:34:30 high blood pressure: care instructions Not available 12/16/2024 08:34:30 coronary artery disease: care instructions Not available 12/16/2024 08:34:30 01/03/2025 [id number] smoking cessatio n counseling, greater than 3 minutes up to 10 minutes* Not available 01/03/2025 17:28:01 learning about healthy weight Not available 01/03/2025 17:55:44 body mass index: care instructions Not available 01/03/2025 17:55:44 Advised to take medication as directed Discussed limiting sodium to 2 gram per day To call office for questions, concerns or issues Not available 01/03/2025 20:39:45 01/25/2025 [id number] kidney stone: care instructions Not available 01/25/2025 16:54:08 Erection Problems: Care Instructions Not available 01/25/2025 16:54:08 starting a weigh t loss plan: care instructions Not available 01/25/2025 16:54:08 sleep apnea: car e instructions Not available 01/25/2025 16:54:08 benign prostatic hyperplasia: care instructions Not available 01/25/2025 16:54:08 high blood pressure: care instructions Not available 01/25/2025 16:54:08 coronary artery disease: care instructions Not available 01/25/2025 16:54:08 02/27/2025 [id number] smoking cessatio n counseling, greater than 3 minutes up to 10 minutes* Not available 02/27/2025 08:14:54 learning about healthy weight Not available 02/27/2025 09:57:34 body mass index: care instructions Not available 02/27/2025 09:57:34 Recent UDS reviewed CSA and PDMR reviewed appropriate Advised to take medication as directed To call office for any questions, concerns or issues Not available 02/27/2025 08:47:54 Reason for Referral None Reported. Results Created Date Observation Date Name Description Value Unit Range Abnormal Flag Note LastModifiedBy Organization Detail LastModifiedTime 11/19/1911/18/2024 drug scree n, urine THC negati ve Not Available [facility] [address] [place], [address], 11/14/2024 09:41:43 11/19/19 25 11/18/2024 drug scree n, urine TCA positi ve Not Available [facility] [address] [place], [address], 11/14/2024 09:41:43 11/19/19 25 11/18/2024 drug scree n, urine BAR negati ve Not Available [facility] [address] [place], [address], 11/14/2024 09:41:43 11/19/19 25 11/18/2024 drug scree n, urine BZO negati ve Not Available [facility] [address] [place], [address], 11/14/2024 09:41:43 11/19/19 25 11/18/2024 drug scree n, urine MTD negati ve Not Available [facility] [address] [place], [address], 11/14/2024 09:41:43 11/19/19 25 11/18/2024 drug scree n, urine AMP negati ve Not Available [facility] [address] [place], [address], 11/14/2024 09:41:43 11/19/19 25 11/18/2024 drug scree n, urine MOP negati ve Not Available [facility] [address] [place], [address], 11/14/2024 09:41:43 11/19/19 25 11/18/2024 drug scree n, urine OXY negati ve Not Available [facility] [address] [place], [address], 11/14/2024 09:41:43 11/19/19 25 11/18/2024 drug scree n, urine MDMA negati ve Not Available [facility] [address] [place], [address], 11/14/2024 09:41:43 11/19/19 25 11/18/2024 drug scree n, urine FAIZAN negati ve Not Available [facility] [address] [place], [address], 11/14/2024 09:41:43 11/19/19 25 11/18/2024 drug scree n, urine PCP negati ve Not Available [facility] [address] [place], [address], 11/14/2024 09:41:43 11/19/19 25 11/18/2024 drug scree n, urine MET negati ve Not Available [facility] [address] [place], [address], 11/14/2024 09:41:43 11/27/19 25 11/26/2024 CBC W/AUT O DIFFE RENTI AL note See Note Order ing Provi tigist: Francoise Euceda lle FISH HATCHERY SUPERINTENDENT Not Available [address]za, [place], [address], 11/26/2024 10:01:43 11/27/19 25 11/26/2024 CBC W/AUT O DIFFE RENTI AL white blood cell 5.4 10e3/ uL 4.5-13 .0 normal Not Available [address]za, [place], [address], 11/26/2024 10:01:43 11/27/19 25 11/26/2024 CBC W/AUT O DIFFE RENTI AL red blood cell 4.62 10e6/ uL 4.10-5 .70 normal Not Available [address] [place]za, [place], [address], 11/26/2024 10:01:43 11/27/19 25 11/26/2024 CBC W/AUT O DIFFE RENTI AL hemoglobin 11.6 g/dL 12.0-1 6.9 low Not Available [address] [place]za, [place], [address], 11/26/2024 10:01:43 11/27/19 25 11/26/2024 CBC W/AUT O DIFFE RENTI AL hematocrit 36.4 % 36.0-4 9.0 normal Not Available [address] , [place], [address], 11/26/2024 10:01:43 11/27/19 25 11/26/2024 CBC W/AUT O DIFFE RENTI AL mean cell volume 79 fL 78.0-9 8.0 normal Not Available [address] [place]endoza, [place], [address], 11/26/2024 10:01:43 11/27/19 25 11/26/2024 CBC W/AUT O DIFFE RENTI AL mean cell HGB 25.1 pg 25.0-3 5.0 normal Not Available [address]za, [place], [address], 11/26/2024 10:01:43 11/27/19 25 11/26/2024 CBC W/AUT O DIFFE RENTI AL mean cell HGB concentratio n 31.9 g/dL 31.0-3 6.0 normal Not Available [address] [place]endoza, [place], [address], 11/26/2024 10:01:43 11/27/19 25 11/26/2024 CBC W/AUT O DIFFE RENTI AL red cell distribution width 14.4 % 11.0-1 5.0 normal Not Available [address]za, [place], [address], 11/26/2024 10:01:43 11/27/19 25 11/26/2024 CBC W/AUT O DIFFE RENTI AL platelet count 281 10e3/ uL 150-40 0 normal Not Available [address] , [place], [address], 11/26/2024 10:01:43 11/27/19 25 11/26/2024 CBC W/AUT O DIFFE RENTI AL immature granulocyte % 0 0-1 normal Not Available [address] Yan[place]za, [place], [address], 11/26/2024 10:01:43 11/27/19 25 11/26/2024 CBC W/AUT O DIFFE RENTI AL neutrophil % 53 % 35-75 normal Not Available [address] , [place], [address], 11/26/2024 10:01:43 11/27/19 25 11/26/2024 CBC W/AUT O DIFFE RENTI AL lymphocyte % 27 % 10-50 normal Not Available [address] Yan[place]za, [place], [address], 11/26/2024 10:01:43 11/27/19 25 11/26/2024 CBC W/AUT O DIFFE RENTI AL monocyte % 14 % 0-15 normal Not Available [address]za, [place], [address], 11/26/2024 10:01:43 11/27/19 25 11/26/2024 CBC W/AUT O DIFFE RENTI AL eosinophil % 5 % 0-5 normal Not Available [address] [place]za, [place], [address], 11/26/2024 10:01:43 11/27/19 25 11/26/2024 CBC W/AUT O DIFFE RENTI AL basophil % 1 % 0-5 normal Not Available [address]za, [place], [address], 11/26/2024 10:01:43 11/27/19 25 11/26/2024 CBC W/AUT O DIFFE RENTI AL immature granulocyte # 0.01 x1000 /uL 0-0.05 normal Not Available [address]za, [place], [address], 11/26/2024 10:01:43 11/27/19 25 11/26/2024 CBC W/AUT O DIFFE RENTI AL neutrophil # 2.82 x1000 /uL 1.50-8 .00 normal Not Available [address] [place]za, [place], [address], 11/26/2024 10:01:43 11/27/19 25 11/26/2024 CBC W/AUT O DIFFE RENTI AL lymphocyte # 1.47 x1000 /uL 1.20-5 .20 normal Not Available [place] [address], [place], [address], 11/26/2024 10:01:43 11/27/19 25 11/26/2024 CBC W/AUT O DIFFE RENTI AL monocyte # 0.74 x1000 /uL 0.30-0 .90 normal Not Available [place] [address], [place], [address], 11/26/2024 10:01:43 11/27/19 25 11/26/2024 CBC W/AUT O DIFFE RENTI AL eosinophil # 0.26 x1000 /uL 0.00-0 .50 normal Not Available [place] [address], [place], [address], 11/26/2024 10:01:43 11/27/19 25 11/26/2024 CBC W/AUT O DIFFE RENTI AL basophil # 0.07 x1000 /uL 0.00-0 .30 normal Not Available [place] [address], [place], [address], 11/26/2024 10:01:43 11/27/19 25 11/26/2024 CBC W/AUT O DIFFE RENTI AL NRBC automated 0.0 /100_ WBC Not Available [address] , [place], [address], 11/26/2024 10:01:43 11/27/19 25 11/26/2024 CBC W/AUT O DIFFE RENTI AL performing lab see note ML - [facility] [address] [place] [address] Not Available [address] [place], [address], 11/26/2024 10:01:43 11/27/19 25 11/26/2024 TESTO STERO NE note See Note Order ing Provi tigist: Francoise Euceda lle FISH HATCHERY SUPERINTENDENT Not Available [address] , [place], [address], 11/27/2024 08:11:17 11/27/19 25 11/26/2024 TESTO STERO NE testosterone 993 NG/dL 264-91 6 high Adult male refer ence inter lexa is based on a popul ation of healt hy nonob tarik males (BMI <30) betwe en 19 and 39 years old. Sp herndon, et.al . JCEM 2017, 102;1 161-1 173. PMID: 11693 103. Perfo rmed At: CB, [facility] n [address] [place], [address] 3832 Nahum roman, PhD, Phone : [phone] Not Available [address] [place], [address], 11/27/2024 08:11:17 11/27/19 25 11/26/2024 TESTO STERO NE performing lab see note LC2 - [facility] T# [id number] 551 [address] [place] [address] Not Available [address] , [place], [address], 11/27/2024 08:11:17 12/02/19 25 12/02/2024 URINE CULTU RE, ROUTI NE urine culture, routine Final report Not Available [facility] ([facility]) [address], [place], [address], 12/03/2024 03:36:38 12/02/19 25 12/02/2024 URINE CULTU RE, ROUTI NE result 1 No growth Not Available [facility] ([facility]) [address], [place], [address], 12/03/2024 03:36:38 12/02/19 25 12/01/2024 urina lysis , dipst ick Leukocytes Negati ve Not Available [address] [place], [address], 12/01/2024 09:06:34 12/02/19 25 12/01/2024 urina lysis , dipst ick Nitrite negati ve Not Available [address] [place], [address], 12/01/2024 09:06:34 12/02/19 25 12/01/2024 urina lysis , dipst ick Urobilinogen 1 Not Available [address] [place], [address], 12/01/2024 09:06:34 12/02/19 25 12/01/2024 urina lysis , dipst ick Protein Negati ve Not Available [address] [place], [address], 12/01/2024 09:06:34 12/02/19 25 12/01/2024 urina lysis , dipst ick pH 5.5 Not Available [address] [place], [address], 12/01/2024 09:06:34 12/02/19 25 12/01/2024 urina lysis , dipst ick Blood Negati ve Not Available [address] [place], [address], 12/01/2024 09:06:34 12/02/19 25 12/01/2024 urina lysis , dipst ick Specific Farina 1.025 Not Available [address] [place], [address], 12/01/2024 09:06:34 12/02/19 25 12/01/2024 urina lysis , dipst ick Ketone Negati ve Not Available [address] [place], [address], 12/01/2024 09:06:34 12/02/19 25 12/01/2024 urina lysis , dipst ick Bilirubin Negati ve Not Available [address] [place], [address], 12/01/2024 09:06:34 12/02/19 25 12/01/2024 urina lysis , dipst ick Glucose Negati ve Not Available [address] [place], [address], 12/01/2024 09:06:34 12/02/19 25 12/01/2024 urina lysis , dipst ick Appearance Clear Not Available [address] [place], [address], 12/01/2024 09:06:34 12/02/19 25 12/01/2024 urina lysis , dipst ick Color Dark Yellow Not Available [facility] [address] [place], [address], 12/01/2024 09:06:34 12/17/19 25 12/17/2024 ESTRA DIOL estradiol 20.7 pg/mL 7.6-42 .6 normal Samanta ECLIA metho dolog y Not Available [facility] ([facility]) [address], [place], [address], 12/17/2024 06:47:10 12/17/19 25 12/16/2024 drug scree n, urine BAR negati ve Not Available [facility] [address] [place], [address], 12/12/2024 10:30:13 12/17/19 25 12/16/2024 drug scree n, urine BZO negati ve Not Available [facility] [address] [place], [address], 12/12/2024 10:30:13 12/17/19 25 12/16/2024 drug scree n, urine MTD negati ve Not Available [facility] [address] [place], [address], 12/12/2024 10:30:13 12/17/19 25 12/16/2024 drug scree n, urine AMP negati ve Not Available [facility] [address] [place], [address], 12/12/2024 10:30:13 12/17/19 25 12/16/2024 drug scree n, urine MOP negati ve Not Available [facility] [address] [place], [address], 12/12/2024 10:30:13 12/17/19 25 12/16/2024 drug scree n, urine OXY negati ve Not Available [facility] [address] [place], [address], 12/12/2024 10:30:13 12/17/19 25 12/16/2024 drug scree n, urine MDMA negati ve Not Available [facility] [address] [place], [address], 12/12/2024 10:30:13 12/17/19 25 12/16/2024 drug scree n, urine FAIZAN negati ve Not Available [facility] [address] [place], [address], 12/12/2024 10:30:13 12/17/19 25 12/16/2024 drug scree n, urine PCP negati ve Not Available [facility] [address] [place], [address], 12/12/2024 10:30:13 12/17/19 25 12/16/2024 drug scree n, urine MET negati ve Not Available [facility] [address] [place], [address], 12/12/2024 10:30:13 01/26/20 25 01/25/2025 drug scree n, urine THC negati ve Not Available [facility] [address] [place], [address], 01/09/2025 10:00:24 01/26/20 25 01/25/2025 drug scree n, urine TCA negati ve Not Available [facility] [address] [place], [address], 01/09/2025 10:00:24 01/26/20 25 01/25/2025 drug scree n, urine BAR negati ve Not Available [facility] [address] [place], [address], 01/09/2025 10:00:24 01/26/20 25 01/25/2025 drug scree n, urine BZO negati ve Not Available [facility] [address] [place], [address], 01/09/2025 10:00:24 01/26/20 25 01/25/2025 drug scree n, urine MTD negati ve Not Available [facility] [address] [place], [address], 01/09/2025 10:00:24 01/26/20 25 01/25/2025 drug scree n, urine AMP negati ve Not Available [facility] [address] [place], [address], 01/09/2025 10:00:24 01/26/20 25 01/25/2025 drug scree n, urine MOP negati ve Not Available [facility] [address] [place], [address], 01/09/2025 10:00:24 01/26/20 25 01/25/2025 drug scree n, urine OXY negati ve Not Available [facility] [address] [place], [address], 01/09/2025 10:00:24 01/26/20 25 01/25/2025 drug scree n, urine MDMA negati ve Not Available [facility] [address] [place], [address], 01/09/2025 10:00:24 01/26/20 25 01/25/2025 drug scree n, urine FAIZAN negati ve Not Available [facility] [address] [place], [address], 01/09/2025 10:00:24 01/26/20 25 01/25/2025 drug scree n, urine PCP negati ve Not Available [facility] [address] [place], [address], 01/09/2025 10:00:24 01/26/20 25 01/25/2025 drug scree n, urine MET negati ve Not Available [facility] [address] [place], [address], 01/09/2025 10:00:24 01/28/20 25 01/28/2025 CBC WITH DIFFE RENTI AL/PL ATELE T WBC 9.1 x10e3 /uL 3.4-10 .8 normal Not Available [facility] ([facility]) [address] [place], [address], 01/28/2025 06:51:43 01/28/20 25 01/28/2025 CBC WITH DIFFE RENTI AL/PL ATELE T RBC 5.05 x10e6 /uL 4.14-5 .80 normal Not Available [facility] ([facility]) [address] [place], [address], 01/28/2025 06:51:43 01/28/2001/28/2025 CBC WITH DIFFE RENTI AL/PL ATELE T hemoglobin 12.2 g/dL 13.0-1 7.7 below low normal Not Available [facility] ([facility]) [address] [place], [address], 01/28/2025 06:51:43 01/28/20 25 01/28/2025 CBC WITH DIFFE RENTI AL/PL ATELE T hematocrit 40.5 % 37.5-5 1.0 normal Not Available [facility] ([facility]) [address], [place], [address], 01/28/2025 06:51:43 01/28/2001/28/2025 CBC WITH DIFFE RENTI AL/PL ATELE T MCV 80 fL 79-97 normal Not Available [facility] ([facility]) [address], [place], [address], 01/28/2025 06:51:43 01/28/20 25 01/28/2025 CBC WITH DIFFE RENTI AL/PL ATELE T MCH 24.2 pg 26.6-3 3.0 below low normal Not Available [facility] ([facility]) [address], [place], [address], 01/28/2025 06:51:43 01/28/20 25 01/28/2025 CBC WITH DIFFE RENTI AL/PL ATELE T MCHC 30.1 g/dL 31.5-3 5.7 below low normal Not Available [facility] ([facility]) [address] [place], [address], 01/28/2025 06:51:43 01/28/20 25 01/28/2025 CBC WITH DIFFE RENTI AL/PL ATELE T RDW 14.8 % 11.6-1 5.4 Not Available [facility] ([facility]) [address] [place], [address], 01/28/2025 06:51:43 01/28/20 25 01/28/2025 CBC WITH DIFFE RENTI AL/PL ATELE T platelets 302 x10e3 /uL 150-45 0 normal Not Available [facility] ([facility]) [address] [place], [address], 01/28/2025 06:51:43 01/28/20 25 01/28/2025 CBC WITH DIFFE RENTI AL/PL ATELE T neutrophils 64 % not estab. normal Not Available [facility] ([facility]) [address] [facility], [place], [address], 01/28/2025 06:51:43 01/28/20 25 01/28/2025 CBC WITH DIFFE RENTI AL/PL ATELE T lymphs 21 % not estab. normal Not Available [facility] ([facility]) [address], [place], [address], 01/28/2025 06:51:43 01/28/20 25 01/28/2025 CBC WITH DIFFE RENTI AL/PL ATELE T monocytes 11 % not estab. normal Not Available [facility] ([facility]) [address], [place], [address], 01/28/2025 06:51:43 01/28/20 25 01/28/2025 CBC WITH DIFFE RENTI AL/PL ATELE T eos 3 % not estab. normal Not Available [facility] ([facility]) [address], [place], [address], 01/28/2025 06:51:43 01/28/20 25 01/28/2025 CBC WITH DIFFE RENTI AL/PL ATELE T basos 1 % not estab. normal Not Available [facility] ([facility]) [address] [facility], [place], [address], 01/28/2025 06:51:43 01/28/20 25 01/28/2025 CBC WITH DIFFE RENTI AL/PL ATELE T immature cells PRINCIPAL ASSOCIATE Not Available [facility]) [address] [place], [address], 01/28/2025 06:51:43 01/28/2001/28/2025 CBC WITH DIFFE RENTI AL/PL ATELE T neutrophils (absolute) 5.8 x10e3 /uL 1.4-7. 0 normal Not Available [facility] ([facility]) [address] [place], [address], 01/28/2025 06:51:43 01/28/20 25 01/28/2025 CBC WITH DIFFE RENTI AL/PL ATELE T lymphs (absolute) 1.9 x10e3 /uL 0.7-3. 1 normal Not Available [facility] ([facility]) [address] [facility], [place], [address], 01/28/2025 06:51:43 01/28/20 25 01/28/2025 CBC WITH DIFFE RENTI AL/PL ATELE T monocytes(ab solute) 1.0 x10e3 /uL 0.1-0. 9 above high normal Not Available [facility] ([facility]) [address] [facility], [place], [address], 01/28/2025 06:51:43 01/28/20 25 01/28/2025 CBC WITH DIFFE RENTI AL/PL ATELE T eos (absolute) 0.3 x10e3 /uL 0.0-0. 4 normal Not Available [facility] ([facility]) [address] [facility], [place], [address], 01/28/2025 06:51:43 01/28/2001/28/2025 CBC WITH DIFFE RENTI AL/PL ATELE T baso (absolute) 0.1 x10e3 /uL 0.0-0. 2 normal Not Available [facility] ([facility]) [address] [facility], [place], [address], 01/28/2025 06:51:43 01/28/2001/28/2025 CBC WITH DIFFE RENTI AL/PL ATELE T immature granulocytes 0 % not estab. Not Available [facility] ([facility]) [address] [place], [address], 01/28/2025 06:51:43 01/28/20 25 01/28/2025 CBC WITH DIFFE RENTI AL/PL ATELE T immature grans (abs) 0.0 x10e3 /uL 0.0-0. 1 Not Available [facility] ([facility]) [address], [place], [address], 01/28/2025 06:51:43 01/28/2001/28/2025 CBC WITH DIFFE RENTI AL/PL ATELE T NRBC PRINCIPAL ASSOCIATE Not Available [facility] ([facility]) [address], [place], [address], 01/28/2025 06:51:43 01/28/2001/28/2025 CBC WITH DIFFE RENTI AL/PL ATELE T hematology comments: PRINCIPAL ASSOCIATE Not Available [facility] ([facility]) [address] [facility], [place], [address], 01/28/2025 06:51:43 01/28/2001/28/2025 TESTO STERO NE testosterone 655 NG/dL 264-91 6 normal Adult male refer ence inter lexa is based on a popul ation of healt hy nonob tarik males (BMI <30) betwe en 19 and 39 years old. Sp herndon, et.al . JCEM 2017, 102;1 161-1 173. PMID: 77556 103. Not Available [facility] ([facility]) [address], [place], [address], 01/28/2025 06:51:43 12/15/19 25 12/13/2024 elect romyo gram + nerve condu ction study No observ ation record ed. Alexander Rivera [facility] [address], [place], [address], 12/16/2024 16:03:59 Result Notes None recorded. Problems Name Problem SNOMED Code Status Onset Date Resolution Date Notes Provider Name and Address Organization Details Recorded Time Chest pain 81602576 Completed 11/09/2018 Manjula coronado, [place] - [facility] 0 17:09:47 History of cardiac catheter ization 97214581062 100 Active Tammy Sadler, FISH HATCHERY SUPERINTENDENT [address], [place], [address] , [place] [facility] 3 11:21:35 Chronic osteoart hritis 67061661 Active 2018 Tammy Sadler APRN [address], [place], [address] , [place] [facility] 3 11:21:35 Chest pain 90716271 Completed 03/05/2020 Manjula Short null[place] [facility] 0 17:09:47 Left lower zone pneumoni a 866318698 Completed 03/05/2020 Manjula Short [place] [facility] 0 17:09:55 Sepsis 71538484 Completed 03/05/2020 Manjula Short [place] [facility] 0 17:10:00 Chronic depressi on 344210685 Active 2019 Tammy Sadler APRN [address], [place], [address] , [place] - [facility] 3 11:21:35 Chronic anxiety 563347967 Active 2019 Tammy Sadler APRN [address], [place], [address] , [place] [facility] 3 11:21:35 History of depressi on 503863887 Completed 201502/22/2018 Manjula Aleman null[place] [facility] 8 16:30:05 Nicotine dependen ce 22789056 Active 2019 Tammy Sadler APRN [address], [place], [address] , [place] - [facility] 3 11:21:35 Kidney stone 23054921 Active 2020 Arabellawilly Aparicio null[place] - [facility] 1 14:32:58 Pain of multiple joints 76589330 Active 2020 Tammy Sadler APRN [address], [place], [address] , [place] [facility] 3 11:21:35 Essentia l hyperten chery 36256655 Active 2015 Tammy Sadler APRN [address], [place], [address] , [place] - [facility] 3 11:21:35 Suspecte d COVID-19 962472703 Completed 08/01/2021 Removal Reason: Problem added by user from the COVID-19 watch flag Marialuisa Chema null[place] - [facility] 1 17:01:58 History of spinal fusion 85855358066 107 Active 2021 Lumbar Tammy Sadler, YVROSE [address], [place], [address] , [place] [facility] 3 11:21:35 Obesity 818914652 Active 2015 Marialuisa Earlywine null[place] [facility] 0 11:02:25 Dyspnea 337837693 Completed 201510/13/2016 Marialuisa Cheek RN [address], [place], [address] , [place] [facility] 7 09:32:38 Osteoart hritis 391379665 Active 2021 Tammy Sadler APRN [address], [place], [address] , [place] [facility] 3 11:21:35 Neuropat hy 989541014 Active 2021 Tammy Sadler APRN [address], [place], [address] , [place] [facility] 3 11:21:34 Candidia sis 89348251 Completed 202203/02/2023 Tammy Sadler APRN [address], [place], [address] , [place] [facility] 3 11:21:10 Chronic low back pain 908630049 Active 2022 Tammy Sadler APRN [address], [place], [address] , [place] [facility] 3 17:37:46 Herpes zoster 0135236 Active 2023 Sammy Nicholson PA-C [address], [place], [address] , [place] [facility] 4 16:17:04 Infectio n of skin 526509143 Active 2023 Sammy Nicholson PA-C [address], [place], [address] , [place] [facility] 4 16:24:24 Systolic murmur 71894821 Active 2023 Sammy Nicholson PA-C [address], [place], [address] , [place] [facility] 4 20:51:22 Cramp 15196083 Active 2023 Sammy Nicholson PA-C [address], [place], [address] , [place] [facility] 4 10:05:55 Fatigue 32468628 Active 2023 Sammy Nicholson PA-C [address], [place], [address] , [place] [facility] 4 10:06:02 Liver enzymes level above referenc e range 130292586 Active 2023 Sammy Nicholson PA-C [address], [place], [address] , [place] [facility] 4 10:16:03 Testoste zoltan level below referenc e range 371238884 Active 2023 Sammy Nicholson PA-C [address], [place], [address] , [place] [facility] 4 08:36:59 Serum creatini ne above referenc e range 854091267 Active 2023 Sammy Nicholson PA-C [address], [place], [address] , [place] [facility] 4 08:37:47 Osteoart hritis of knee 277159745 Active 2023 Rosalva Overton, FISH HATCH[employer] SUPERINTENDENT [address], [place], [address] , [place] [facility] 4 16:19:00 Acute renal insuffic iency 539482071 Active 2023 Rosalva Overton, FISH HATCHERY SUPERINTENDENT [address], [place], [address] , [place] [facility] 4 16:21:00 Bilatera l cramp of muscle of lower limbs 11975918458 077936 Active 2023 Rosalva Overton, FISH HATCHERY SUPERINTENDENT [address], [place], [address] , [place] [facility] 4 17:44:26 Hyperlip idemia 86871874 Active 2023 Rosalva Overton, FISH HATCHERY SUPERINTENDENT [address], [place], [address] , [place] [facility] 4 17:44:44 Sinusiti s 32944068 Completed 201612/24/2016 Rich Brush MD [address], [place], [address] , [place] [facility] 7 20:41:32 Primary erectile dysfunct ion 719502956 Active 2016 Marialuisa Thapa ivonne, [place] - [facility] 0 11:02:25 Obstruct maribel sleep apnea syndrome 32936003 Active 2023 sees rita bell- [place], Severe *(2023): severe obstruct maribel sleep apnea with AHI: 45.1 snoring, and sleep-re lated hypoxia with a nazia of 66%, and maximum heart rate 97 BPM Francoise Galeas, FISH HATCHERY SUPERINTENDENT [address], [place], [address] , [place] - [facility] 4 08:45:06 Coronary arterios clerosis 55462049 Active 2023 Rosalva Overton, FISH HATCHERY SUPERINTENDENT [address], [place], [address] , [place] [facility] 4 11:50:42 Orthopne a 57005716 Active 2023 Rosalva Overton, FISH HATCHERY SUPERINTENDENT [address], [place], [address] , [place] [facility] 4 11:51:20 Acute sinusiti s 21721042 Completed 202401/03/2025 Marialuisa coronado[place] [facility] 5 17:27:13 Delay when starting to pass urine 9441856 Active 2024 Rosalva Overton, FISH HATCHERY SUPERINTENDENT [address], [place], [address] , [place] - [facility] 5 09:06:30 Paresthe twila of bilatera l hands 730359688 Active 2024 Rosalva Overton APRN [address], [place], [address] , [place] [facility] 5 10:38:16 Edema of foot 373041879 Active 2024 Rosalva Overton APRN [address], [place], [address] , [place] [facility] 5 17:55:07 Fatigue 23811515 Completed 201611/17/2017 Sammy Nicholson PA-C [address], [place], [address] , [place] [facility] 4 10:06:02 Diabetic peripher al neuropat hy 249257286 Active 2024 Rosalva Overton APRN [address], [place], [address] , [place] [facility] 5 09:51:27 Otitis externa 4855047 Completed 201607/14/2017 Manjula coronado[place] [facility] 7 11:28:46 Gastroes ophageal reflux disease 981222232 Active 2016 Tammy Sadler APRN [address], [place], [address] , [place] [facility] 3 11:21:13 Problem Notes None recorded. Procedures Surgical History Date Name Laterality Status Provider Name and Address Organization Details Recorded Time 04/25/20 24 Cardiac Cath completed Dior Leiva [place] - [facility] 04/27/2024 13:44:39 10/26/19 24 Medication Reconcilliation completed Marta Bishop [place] [facility] 10/26/2023 09:29:58 01/07/20 23 Shave Biopsy trunk, arms, or legs completed Deisy Mena APRN [address], [place], [address], [place] [facility] 01/06/2023 09:09:35 11/11/19 22 Back Surgery completed Tammy Sadler APRN [address], [place], [address], [place] [facility] 01/26/2022 21:30:19 05/13/20 21 Suture/Staple removal completed Manjula Aleman [place] [facility] 06/13/2021 13:24:46 04/12/20 21 Medication Reconcilliation completed Crystal Chema [place] [facility] 04/12/2021 16:17:00 03/05/20 20 Diastolic B/P 80-89 mm Hg completed Crystal Chema [place] [facility] 03/05/2020 17:01:01 03/05/20 20 Systolic B/P 130-139 mm Hg completed Crystal Chema [place] [facility] 03/05/2020 17:00:57 02/03/20 20 Diastolic B/P greater than or equal to 90 mm Hg completed Crystal Chema [place] [facility] 02/03/2020 14:07:03 02/03/20 20 Systolic B/P greater than or equal to 140 mm Hg completed Crystal Chema [place] [facility] 02/03/2020 14:06:54 11/18/19 20 Systolic B/P less than 130 mm Hg completed Crystal Chema [place] [facility] 11/18/2019 10:30:32 11/18/19 20 Diastolic B/P less than 80 mm Hg completed Crystal Chema [place] [facility] 11/18/2019 10:30:35 11/04/19 20 Systolic B/P less than 130 mm Hg completed Crystal Chema [place] [facility] 11/04/2019 14:48:07 11/04/19 20 Diastolic B/P 80-89 mm Hg completed Crystal Chema [place] [facility] 11/04/2019 14:48:20 11/04/19 20 Medication Reconcilliation completed Crystal Chema [place] [facility] 11/04/2019 14:41:50 10/24/19 20 Systolic B/P less than 130 mm Hg completed Crystal Chema [place] [facility] 10/24/2019 16:40:43 10/24/19 20 Diastolic B/P 80-89 mm Hg completed Crystal Chema [place] [facility] 10/24/2019 16:40:45 10/07/19 20 Systolic B/P less than 130 mm Hg completed Rachel Zuleta [place] [facility] 10/07/2019 15:49:05 10/07/19 20 Diastolic B/P less than 80 mm Hg completed Rcahel Zuleta [place] [facility] 10/07/2019 15:49:08 09/30/19 20 Systolic B/P less than 130 mm Hg completed Donna Kessler [place] [facility] 09/30/2019 14:41:13 09/30/19 20 Diastolic B/P less than 80 mm Hg completed Donna Kessler [place] [facility] 09/30/2019 14:41:20 08/08/20 19 Systolic B/P less than 130 mm Hg completed Crystal Chema [place] [facility] 08/08/2019 11:41:10 08/08/20 19 Diastolic B/P 80-89 mm Hg completed Crystal Chema [place] [facility] 08/08/2019 11:41:13 01/22/20 17 Colonoscopy completed Arnold Snedegar [place] [facility] 05/13/2022 16:12:16 09/10/20 16 Knee Surgery completed Crystal Chema [place] [facility] 09/12/2021 16:26:51 Knee arthroscopy/surgery completed Marialuisa Cheek RN [address], [place], [address] [place] [facility] 06/26/2016 08:28:39 Imaging Results None recorded. Procedure Notes None recorded. Medical Equipment None Reported. Allergies Allergen ID Allergen Name Allergen Category Reaction Reaction Severity Criticality Documentation Date Start Date Code Code System Note Provider Name and Address Organization Details Recorded Time 154683 amoxicill in medicatio n rash moderate Not available 10/07/2019 723 RxNorm Manjula Aleman null[place] - [facility] 1 17:34:37 266863 Toradol medicatio n rash moderate Not available 10/07/2019 95085 RxNorm Manjula Aleman [place] - [facility] 1 17:34:30 474364 Depo-Medr ol medicatio n rash moderate Not available 10/07/2019 34498 RxNorm Manjula Aleman [place] [facility] 0 17:27:02 883531 meloxicam medicatio n Not available Not available Not available 01/28/2021 98914 RxNorm Manjula Aleman [place] [facility] 1 17:34:54 19079 meloxicam medicatio n itching Not available Not available 06/20/20162014 59553 RxNorm Manjula Aleman [place] - [facility] 17:34:33 Medications Name Sig Start Date Stop Date Status Note LastModified by Organization Details LastModified Time Prescript ion - Renewal 11/09 completed [employer]ET[employer] Not Available Not Available Not Available BD Luer-Amilcar Syringe 3 mL 23 x 1 USE directed TO INJECT ariela charlton active Not Available Not Available No t Available cyclobenz aprine 10 mg tablet Take 1 tablet 3 times a day by oral route as needed for 15 days. 2023 active Not Available Not Available Not Avai lable amoxicill in 500 mg capsule Take 1 capsule twice a day by oral route for 7 days. 10/26 completed Not Available Not Available Not Available furosemid e 40 mg tablet 2024 active Not Available Not Available Not Avai lable fluconazo le 100 mg tablet Take 1 tablet every day by oral route. 03/02 completed Not Available Not Available Not Available atorvasta tin 40 mg tablet TAKE 1 TABLET BY MOUTH EVERY DAY active Not Available Not Available No t Available methocarb fer 500 mg tablet 01/01 completed Not Available Not Available Not Available Augmentin 875 mg-125 mg tablet take 1 tablet by oral route every 12 hours for 10 days 02/13 completed Augmenti n 875-125 mg oral tablet;R ecorded Status: Recorded on: 12/27/19 11 4:41PM;D iscontin ued Status: Disconti nued on: 02/14/20 11 11:19AM; User: Sumeet Farrar on: 01/06/20 11 Not Available Not Available Not Available bupropion HCl SR 150 mg tablet,12 hr sustained -release Take 1 tablet twice a day by oral route for 30 days. 06/06 completed Not Available Not Available Not Available atorvasta tin 80 mg tablet Take 1 mg by oral route for 90 days. 11/10 completed Not Available Not Available Not Available nystatin 100,000 unit/mL oral suspensio n ONE TEASPOON SWISH AND SWALLOW BY ORAL ROUTE 4 TIMES PER DAY 03/02 completed Not Available Not Available Not Available prednison e 10 mg tablet 11/17 completed Not Available Not Available Not Available gabapenti n 600 mg tablet Take 1 tablet 3 times a day by oral route after meal(s) for 30 days. 12/01 completed Not Available Not Available Not Available doxycycli ne hyclate 100 mg capsule Take 1 capsule twice a day by oral route for 7 days. 10/31 completed Not Available Not Available Not Available atorvasta tin 20 mg tablet TAKE 1 TABLET(S ) EVERY DAY BY ORAL ROUTE IN THE EVENING FOR 30 DAYS. 01/28 completed Not Available Not Available Not Available nicotine 14 mg/24 hr daily transderm al patch Apply 1 patch every day by transder mal route. 09/12 completed Not Available Not Available Not Available Depo-Medr ol 40 mg/mL suspensio n for injection Take 40 mg by injectio n route. 12/30 completed Not Available Not Available Not Available Zyrtec-D 5 mg-120 mg tablet,ex tended release take 1 tablet by oral route 2 times per day for 10 days 08/23 completed Zyrtec-D 5-120 mg oral tablet extended release 12 hr;Presc ribe Status: Prescrib ed on: 06/06/20 15 3:59PM;D iscontin ued Status: Disconti nued on: 08/23/20 15 11:01AM; User: [email or web address] martínezEst. Completi on: 06/16/20 15;Pharm acThomasf ied: 06/06/20 15 3:59PM Not Available Not Available Not Available Ceftin 500 mg tablet take 1 tablet (500 mg) by oral route 2 times per day for 7 days 04/15 completed Ceftin 500 mg oral tablet;P rescribe Status: Prescrib ed on: 10/30/19 16 1:58PM;D iscontin ued Status: Disconti nued on: 04/15/20 16 2:45PM;U ser: [email or web address] martínezEst. Completi on: 11/06/19 16;Pharm acyVerif ied: 10/30/19 16 1:58PM Not Available Not Available Not Available citalopra m 40 mg tablet TAKE 1 TABLET BY MOUTH EVERY DAY active Not Available Not Available No t Available azithromy ernesto 250 mg tablet TAKE 2 TABLETS BY MOUTH ON DAY 1, THEN TAKE 1 TABLET DAILY ON DAYS 2-5 09/22 completed Not Available Not Available Not Available fluconazo le 150 mg tablet 1 tablet PO x 1; repeat in 72 hours x 1 09/12 completed Not Available Not Available Not Available citalopra m 10 mg tablet Take 1 tablet every day by oral route. 09/30 completed Not Available Not Available Not Available valacyclo vir 1 gram tablet TAKE ONE TABLET BY MOUTH THREE TIMES DAILY FOR SEVEN DAYS 03/29 completed Not Available Not Available Not Available hydrocodo ne 5 mg-acetam inophen 325 mg tablet 12/02 completed Not Available Not Available Not Available Celestone Soluspan 6 mg/mL suspensio n for injection Take 1 mL by injectio n route. 12/02 completed Not Available Not Available Not Available ondansetr on HCl 8 mg tablet TAKE 1 TABLET(S ) EVERY 8 HOURS BY ORAL ROUTE NEEDED. 05/23 completed Not Available Not Available Not Available meloxicam 15 mg tablet take 1 tablet (15 mg) by oral route once daily 08/23 completed meloxica m 15 mg oral tablet;P rescribe Status: Prescrib ed on: 02/20/20 15 4:44PM;D iscontin ued Status: Disconti nued on: 08/23/20 15 11:01AM; User: [email or web address]; Indicati on: Knee pain, acute, right - (719.46) ;Pharmac yVerifie d: 02/20/20 15 4:44PM Not Available Not Available Not Available lisinopri l 20 mg tablet Take 20 mg by oral route. 01/03 completed Not Available Not Available Not Available ondansetr on HCl 4 mg tablet Take 1 tablet twice a day by oral route as needed for 7 days. 07/04 completed Not Available Not Available Not Available prednison e 20 mg tablet Take 1 tablet every day by oral route for 5 days. 09/09 completed Not Available Not Available Not Available Alcohol Pads Apply ONE pad EVERY 2 WEEKS TO THE SKIN as needed FOR 30 DAYS, FOR testoste zoltan injectio ns active Not Available Not Available No t Available gabapenti n 400 mg capsule Take 1 capsule 3 times a day by oral route as directed for 90 days. 12/02 completed Not Available Not Available Not Available prednison e 5 mg tablet 10/24 completed Not Available Not Available Not Available Zomig 2.5 mg tablet take 1 tablet (2.5 mg) by oral route once; if headache returns, the dose may be repeated after 2 hours, not to exceed 10 mg within 24 hours 01/08 completed Zomig 2.5 mg oral tablet;R ecorded Status: Recorded on: 12/27/19 11 4:41PM;D iscontin ued Status: Disconti nued on: 01/09/20 11 3:10PM;U ser: [email or web address];Es t. Completi on: 01/26/20 11;Indic ation: Migraine - (3469 ) Not Available Not Available Not Available clindamyc in HCl 150 mg capsule 09/02 completed Not Available Not Available Not Available sumatript an 50 mg tablet take 50 mg PO x1; Max: 200 mg/24h; Info: may repeat dose x1 after 2h 04/11 completed Not Available Not Available Not Available phentermi ne 37.5 mg tablet 10/13 completed Not Available Not Available Not Available clopidogr el 75 mg tablet TAKE 1 TABLET BY MOUTH EVERY DAY active Not Available Not Available No t Available amlodipin e 5 mg tablet 01/19 completed Not Available Not Available Not Available ciproflox acin 500 mg tablet take 1 tablet (500 mg) by oral route 2 times per day for 10 days 11/13 completed Not Available Not Available Not Available sulfameth oxazole 800 mg-trimet hoprim 160 mg tablet TAKE ONE TABLET BY MOUTH TWICE DAILY FOR 7 DAYS -- FINISH ALL MEDICINE -- 12/27 completed Not Available Not Available Not Available omeprazol e 40 mg capsule,d elayed release TAKE ONE CAPSULE BY MOUTH EVERY DAY 08/29 completed Not Available Not Available Not Available aspirin 81 mg tablet,de layed release TAKE ONE TABLET BY MOUTH DAILY active Not Available Not Available No t Available tramadol 50 mg tablet Take 2 tablets 3 times a day by oral route as needed for 30 days. 12/27 completed Not Available Not Available Not Available amitripty line 50 mg tablet Take 50 mg by oral route. 02/02 completed Not Available Not Available Not Available triamcino lone acetonide 0.1 % topical cream apply a thin layer to the affected area(s) by topical route 2 times per day for 30 days 05/06 completed triamcin olone acetonid e 0.1 % topical cream;Re corded Status: Recorded on: 05/20/20 11 11:06AM; Disconti nued Status: Disconti nued on: 05/06/20 12 4:06PM;U ser: [email or web address]; Est. Completi on: 06/19/20 11;Indic ation: Contact Dermatit is - ([phone]);Prin jax: 05/20/20 11 Not Available Not Available Not Available spironola ctone 25 mg tablet take on e tablet daily 12/02 completed Not Available Not Available Not Available amoxicill in 500 mg tablet TAKE ONE TABLET BY MOUTH THREE TIMES DAILY FOR SEVEN DAYS 08/26 completed Not Available Not Available Not Available Depo-Medr ol 80 mg/mL suspensio n for injection Take 1 mL by injectio n route. 09/12 completed Not Available Not Available Not Available Macrobid 100 mg capsule take 1 capsule (100 mg) by oral route 2 times a day for 7 days 12/26 completed Macrobid 100 mg oral capsule; Recorded Status: Recorded on: 12/06/19 11 4:39PM;D iscontin ued Status: Disconti nued on: 12/27/19 11 3:57PM;U ser: [email or web address]; Est. Completi on: 12/13/19 11 Not Available Not Available Not Available ceftriaxo ne 1 gram solution for injection Take 1 g by injectio n route. 10/26 completed Not Available Not Available Not Available citalopra m 20 mg tablet TAKE ONE TABLET BY MOUTH EVERY DAY 03/05 completed Not Available Not Available Not Available methocarb fer 750 mg tablet Take 1 tablet 3 times a day by oral route as needed for 10 days. 05/23 completed Not Available Not Available Not Available tamsulosi n 0.4 mg capsule Take 1 capsule every day by oral route after meal(s) for 90 days. 2024 active Not Available Not Available Not Avai lable gabapenti n 800 mg tablet TAKE ONE (1) TABLET BY MOUTH THREE (3) TIMES DAILY active Not Available Not Available No t Available dicyclomi ne 20 mg tablet Take 1 tablet 4 times a day by oral route as needed for 7 days. 08/18 completed Not Available Not Available Not Available meclizine 25 mg tablet Take 1 tablet 3 times a day by oral route for 7 days. 05/23 completed Not Available Not Available Not Available cephalexi n 500 mg capsule Take 1 capsule twice a day by oral route for 7 days. 03/11 completed Not Available Not Available Not Available Zomig 5 mg tablet take 1 tablet (5 mg) by oral route once; if headache returns, the dose may be repeated after 2 hours, not to exceed 10 mg within 24 hours 09/09 completed Zomig 5 mg oral tablet;R ecorded Status: Recorded on: 10/11/19 10 4:42PM;D iscontin ued Status: Disconti nued on: 09/09/20 10 1:02PM;U ser: [email or web address];Es t. Completi on: 10/14/19 10;Indic ation: Migraine - (06.3469 00);Prin jax: 10/11/19 10 Not Available Not Available Not Available pantopraz ole 40 mg tablet,de layed release TAKE 1 TABLET BY MOUTH EVERY DAY active Not Available Not Available No t Available simvastat in 20 mg tablet TAKE 1 TABLET(S ) EVERY DAY BY ORAL ROUTE. 06/07 completed Not Available Not Available Not Available oseltamiv ir 75 mg capsule take 1 capsule by oral route 2 times a day for 5 days 11/13 completed Not Available Not Available Not Available buspirone 10 mg tablet TAKE 1 TABLET BY MOUTH TWICE DAILY active Not Available Not Available No t Available Sabrina-D 12 Hour 60 mg-120 mg tablet,ex tended release take 1 tablet by oral route 2 times per day for 7 days 10/10 completed Sabrina- D 12 Hour 60-120 mg oral tablet extended release 12 hr;[facility] ribe Status: Prescrib ed on: 11/25/19 14 3:47PM;D iscontin ued Status: Disconti nued on: 10/10/19 15 4:42PM;U ser: [email or web address];E st. Completi on: 12/02/19 14;Pharm acyVerif ied: 11/25/19 14 3:47PM Not Available Not Available Not Available lisinopri l 10 mg tablet Take 1 tablet every day by oral route for 30 days. 08/01 completed Not Available Not Available Not Available metoprolo l tartrate 50 mg tablet 07/04 completed Not Available Not Available Not Available nicotine 21 mg/24 hr daily transderm al patch APPLY 1 PATCH EVERY DAY BY TRANSDER MAL ROUTE 03/02 completed Not Available Not Available Not Available nitroglyc quinn 0.4 mg sublingua l tablet active Not Available Not Available Not Available docusate sodium 100 mg capsule 12/02 completed Not Available Not Available Not Available gabapenti n 300 mg capsule Take 1 capsule twice a day by oral route as directed for 30 days. 01/28 completed Not Available Not Available Not Available omeprazol e 20 mg capsule,d elayed release 01/19 completed Not Available Not Available Not Available lisinopri l 20 mg-hydroc hlorothia zide 25 mg tablet 05/12 completed Not Available Not Available Not Available diclofena c sodium 75 mg tablet,de layed release TAKE ONE (1) TABLET TWICE A DAY BY ORAL ROUTE DIRECTED active Not Available Not Available No t Available lisinopri l 5 mg tablet Take 1 tablet twice a day by oral route for 30 days. 12/03 completed Not Available Not Available Not Available mupirocin 2 % topical ointment apply SMALL AMOUNT TO affected AREA 2-3 times a DAY NEEDED active Not Available Not Available No t Available diclofena c sodium 50 mg tablet,de layed release 75 mg by oral route. 10/31 completed Not Available Not Available Not Available furosemid e 20 mg tablet TAKE 1 TABLET BY MOUTH EVERY DAY active Not Available Not Available No t Available gabapenti n 100 mg capsule Take 400 mg by oral route. 01/01 completed Not Available Not Available Not Available metoprolo l succinate ER 25 mg tablet,ex tended release 24 hr TAKE ONE TABLET BY MOUTH DAILY 01/03 completed Not Available Not Available Not Available dexametha sone sodium phosphate 4 mg/mL injection solution Inject 8 mg by intramus cular route. 05/05 completed Not Available Not Available Not Available Nasonex 50 mcg/actua tion [place] spray 2 sprays in each nostril by intranas al route once daily for 30 days prn 11/24 completed Nasonex 50 mcg/actu ation nasal spray,no n-aeroso l;Record ed Status: Recorded on: 10/20/19 14 9:41PM;D iscontin ued Status: Disconti nued on: 11/25/19 14 4:20PM;U ser: carlos alberto; Est. Completi on: 01/19/20 14 Not Available Not Available Not Available Tylenol-C odeine #3 300 mg-30 mg tablet one tab every 4-6 hours as needed 08/23 completed Tylenol- Codeine #3 300-30 mg oral tablet;R ecorded Status: Recorded on: 02/17/20 15 2:24PM;D iscontin ued Status: Disconti nued on: 08/23/20 15 11:01AM; User: terry; Indicati on: Knee pain, acute, right - (999.46) Not Available Not Available Not Available testoster one cypionate 200 mg/mL intramusc ular oil INJECT 0.5 ML EVERY WEEK BY INTRAMUS CULAR ROUTE FOR 28 DAYS. active Not Available Not Available No t Available prednison e 5 mg tablets in a dose pack Take 1 dose pk every day by oral route as directed for 6 days. 10/24 completed Not Available Not Available Not Available levofloxa ernesto 500 mg tablet Take 1 tablet every 24 hours by oral route for 7 days. 11/17 completed Not Available Not Available Not Available methylpre dnisolone 4 mg tablets in a dose pack take as directed ON package 12/01 completed Not Available Not Available Not Available albuterol sulfate HFA 90 mcg/actua tion aerosol inhaler Inhale 2 puffs every 4 hours by inhalati on route as needed. 05/23 completed Not Available Not Available Not Available Lomotil 2.5 mg-0.025 mg tablet take one tablet q 4hrs prn for diarrhea 11/24 completed Lomotil 2.5-0.02 5 mg oral tablet;R ecorded Status: Recorded on: 06/23/20 13 4:48PM;D iscontin ued Status: Disconti nued on: 11/25/19 14 3:14PM;U ser: [email or web address];I ndicatio n: Diarrhea - ([phone] 10) Not Available Not Available Not Available ketorolac 60 mg/2 mL intramusc ular solution Inject 60 mg by intramus cular route. 12/27 completed Not Available Not Available Not Available BD Luer-Amilcar Syringe 3 mL 21 gauge x 1 1/2 USE as directed TO draw UP testoste zoltan active Not Available Not Available No t Available ketoconaz ole 2 % topical cream APPLY TO THE AFFECTED AREA(S) BY TOPICAL ROUTE ONCE DAILY 05/23 completed Not Available Not Available Not Available hydroxyzi ne HCl 10 mg tablet Take 1 tablet 3 times a day by oral route as directed for 6 days. 02/02 completed Not Available Not Available Not Available dexametha sone sodium phosphate 10 mg/mL injection solution Take 10 mg by injectio n route. 10/05 completed Not Available Not Available Not Available fluticaso ne propionat e 50 mcg/actua tion nasal spray,isis pension USE 2 SPRAYS EACH NOSTRIL DAILY DIRECTED active Not Available Not Available No t Available phentermi ne 37.5 mg capsule Take 1 capsule every day by oral route as directed for 30 days. 10/13 completed Not Available Not Available Not Available neomycin- polymyxin -hydrocor t 3.5 mg-10,000 unit/mL-1 % ear drops,isis p INSTILL 4 DROPS INTO AFFECTED EAR(S) BY OTIC ROUTE 3 TIMES PER DAY for 5 days 10/24 completed Not Available Not Available Not Available meclizine 25 mg chewable tablet 01/28 completed Not Available Not Available Not Available azithromy ernesto 500 mg tablet 500 mg by oral route. 11/04 completed Not Available Not Available Not Available atomoxeti ne 40 mg capsule Take 1 capsule every day by oral route for 30 days. 11/09 completed Not Available Not Available Not Available Wellbutri n XL 150 mg 24 hr tablet, extended release take 1 tablet (150 mg) by oral route once daily for 30 days 10/18 completed Wellbutr in XL 150 mg oral tablet extended release 24 hr;Recor ded Status: Recorded on: 10/11/19 10 4:42PM;D iscontin ued Status: Disconti nued on: 10/18/19 10 1:27PM;U ser: [email or web address];Es t. Completi on: 12/11/19 10;Indic ation: Depressi on - ();Prin jax: 10/11/19 10 Not Available Not Available Not Available Saccharom yces boulardii 250 mg capsule Take 250 mg by oral route. 04/11 completed Not Available Not Available Not Available tadalafil 20 mg tablet TAKE 1 TABLET BY MOUTH EVERY DAY active Not Available Not Available No t Available Cialis 5 mg tablet Take 1 tablet every day by oral route for 30 days. 11/13 completed Not Available Not Available Not Available Cialis 10 mg tablet 11/13 completed Not Available Not Available Not Available metoprolo l tartrate 25 mg tablet TAKE 1 TABLET(S ) TWICE A DAY BY ORAL ROUTE FOR 30 DAYS. 07/04 completed Not Available Not Available Not Available duloxetin e 30 mg capsule,d elayed release Take 1 capsule every day by oral route for 90 days. 01/03 completed Not Available Not Available Not Available sildenafi l (pulmonar y hypertens ion) 20 mg tablet Take 1 tablet 3 times a day by oral route. 11/13 completed Not Available Not Available Not Available pregabali n 100 mg capsule 05/11 completed Not Available Not Available Not Available Lyrica 150 mg capsule Take 1 capsule twice a day by oral route. 04/23 completed Not Available Not Available Not Available Flonase as directed 10/18 completed flonase spray standard ;Recorde d Status: Recorded on: 06/27/20 13 8:59PM;D iscontin ued Status: Disconti nued on: 10/18/19 14 3:43PM;U ser: carlos alberto; Est. Completi on: 07/27/20 13;Indic ation: sinus - (-5) Not Available Not Available Not Available Amoxil onr tid 06/23 completed amoxil 500 mg.;Sarwat rded Status: Recorded on: 12/15/19 13 3:08PM;D iscontin ued Status: Disconti nued on: 06/23/20 13 4:42PM;U ser: carlos alberto; Est. Completi on: 12/25/19 13;Indic ation: throat - (-5) Not Available Not Available Not Available omeprazol e one bid, then one daily 04/15 completed omeprazo le 20 mg.;Sarwat rded Status: Recorded on: 08/26/20 15 7:42PM;D iscontin ued Status: Disconti nued on: 04/15/20 16 2:45PM;U ser: carlos alberto; Est. Completi on: 12/24/19 16;Indic ation: gerd - (-5) Not Available Not Available Not Available Ceftin 1 bid 10/30 completed ceftin 500 mg;Recor ded Status: Recorded on: 10/30/19 16 1:45PM;D iscontin ued Status: Disconti nued on: 10/30/19 16 1:57PM;U ser: [email or web address] martínezEst. Completi on: 11/09/19 16;Indic ation: - (-5) Not Available Not Available Not Available lisinopri l one a day 05/12 completed lisinopr il 20 mg.;Sarwat rded Status: Recorded on: 05/12/20 16 11:49AM; User: any simmons;Est. Completi on: 06/11/20 16 Not Available Not Available Not Available Lomotil one q 4 hrs prn 10/18 completed lomotil 2.5 mg;Recor ded Status: Recorded on: 06/27/20 13 8:59PM;D iscontin ued Status: Disconti nued on: 10/18/19 14 3:43PM;U ser: stacie Est. Completi on: 07/03/20 13;Indic ation: diarrhea - (-5) Not Available Not Available Not Available Zithromax Z-Simone as directed 08/23 completed z-pkg 250 mg.;Sarwat rded Status: Recorded on: 05/03/20 15 2:22PM;D iscontin ued Status: Disconti nued on: 08/23/20 15 11:01AM; User: stacie Est. Completi on: 05/09/20 15;Indic ation: sinus - (-5) Not Available Not Available Not Available Ultracet one q 4 hrs prn pain 10/10 completed ultracet 37.5 mg.;Sarwat rded Status: Recorded on: 10/01/19 15 1:46PM;D iscontin ued Status: Disconti nued on: 10/10/19 15 4:42PM;U ser: stacie Est. Completi on: 10/06/19 15;Indic ation: pain - (-5) Not Available Not Available Not Available Zyrtec D 1 bid 08/23 completed zyrtec d;Record ed Status: Recorded on: 06/06/20 15 3:52PM;D iscontin ued Status: Disconti nued on: 08/23/20 15 11:01AM; User: [email or web address] martínezEstPeter Completi on: 06/13/20 15;Indic ation: - (-5) Not Available Not Available Not Available Monoject Hypodermi c Polypropy vanessa 18 gauge x 1 1/2 needle USE DIRECTED WITH ARIELA CHARLTON active Not Available Not Available No t Available levocetir izine 5 mg tablet Take 1 tablet every day by oral route. 05/21 completed Not Available Not Available Not Available nebivolol 5 mg tablet 03/02 completed Not Available Not Available Not Available Suprep Bowel Prep Kit 17.5 gram-3.13 gram-1.6 gram oral solution 04/22 completed Not Available Not Available Not Available Chantix Continuin g Month Box 1 mg tablet 01/28 completed Not Available Not Available Not Available Chantix Starting Month Box 0.5 mg (11)-1 mg (42) tablets in dose pack take as directed 01/28 completed Not Available Not Available Not Available Sabrina-D one bid 04/15 completed sabrina d 12 hr.;Sarwat rded Status: Recorded on: 05/03/20 15 2:22PM;D iscontin ued Status: Disconti nued on: 04/15/20 16 2:45PM;U ser: carlos alberto; Est. Completi on: 05/10/20 15 Not Available Not Available Not Available guaifenes in ER 600 mg tablet, extended release 12 hr Take 1 tablet every 12 hours by oral route for 15 days. 11/17 completed Not Available Not Available Not Available Zofran (base) one q 4 hrs prn 11/05 completed zofran 4 mg.;Sarwat rded Status: Recorded on: 05/03/20 15 2:22PM;D iscontin ued Status: Disconti nued on: 11/05/19 16 9:12AM;U ser: carlos alberto; Est. Completi on: 05/13/20 15;Indic ation: neas - (-5) Not Available Not Available Not Available naloxone 4 mg/actuat ion nasal spray USE DIRECTED active Not Available Not Available No t Available Easy Touch FlipLock Syringe 3 mL 23 gauge x 1 USE TO INJECT TESTOSTE ZOLTAN active Not Available Not Available No t Available Shingrix (PF) 50 mcg/0.5 mL intramusc ular suspensio n, kit 12/12 completed Not Available Not Available Not Available Lokelma 10 gram oral powder packet take ONE PACKET BY MOUTH THREE TIMES DAILY FOR 2 DAYS 01/03 completed Not Available Not Available Not Available Xyosted 75 mg/0.5 mL subcutane ous auto-inje ctor Inject 0.5 mL every week by subcutan eous route for 28 days. 09/22 completed Not Available Not Available Not Available tramadol 100 mg tablet Take 1 tablet 3 times a day by oral route as needed for 14 days. 04/17 completed Not Available Not Available Not Available Afluria Qd 2019- (36 mos up)(PF)60 mcg (15 mcg x4)/0.5 mL IM syringe 12/12 completed Not Available Not Available Not Available Vitals Date Recorded Body height Body mass index (BMI) Body weight Heart rate Oxygen saturation Oxygen saturation in Arterial blood by Pulse oximetry Respiratory rate Systolic And Diastolic Provider Name and Address Organization Details Last Updated DateTime 5 182.88 cm 35.4 kg/m2 268356. 61 g 86 /min 98 % 98 % 16 /min 142/84 mm[Hg] Arnold Mikhail [place] - [facility] 5 08:05:12 Date Recorded Body height Body mass index (BMI) Body weight Heart rate Oxygen saturation Oxygen saturation in Arterial blood by Pulse oximetry Respiratory rate Systolic And Diastolic Provider Name and Address Organization Details Last Updated DateTime 5 182.88 cm 34.4 kg/m2 810916. 46 g 77 /min 97 % 97 % 16 /min 122/80 mm[Hg] Ellie Parnell [place] - [facility] 5 08:07:50 Date Recorded Body height Body mass index (BMI) Body weight Heart rate Oxygen saturation Oxygen saturation in Arterial blood by Pulse oximetry Respiratory rate Systolic And Diastolic Provider Name and Address Organization Details Last Updated DateTime 5 182.88 cm 33.8 kg/m2 518058. 5 g 82 /min 98 % 98 % 18 /min 126/80 mm[Hg] Marialuisa Mendietarod [place] - [facility] 5 17:32:12 Date Recorded Body height Body mass index (BMI) Body weight Heart rate Oxygen saturation Oxygen saturation in Arterial blood by Pulse oximetry Respiratory rate Systolic And Diastolic Provider Name and Address Organization Details Last Updated DateTime 5 182.88 cm 34 kg/m2 764169. 89 g 69 /min 98 % 98 % 18 /min 140/80 mm[Hg] Ellie Parnell [place] - [facility] 5 16:22:47 Date Recorded Body height Body mass index (BMI) Body weight Heart rate Oxygen saturation Oxygen saturation in Arterial blood by Pulse oximetry Respiratory rate Systolic And Diastolic Provider Name and Address Organization Details Last Updated DateTime 5 182.88 cm 33.8 kg/m2 828736. 5 g 71 /min 98 % 98 % 18 /min 122/80 mm[Hg] Marialuisa BRUNER - [facility] 5 08:18:00 Social History Question Answer Notes LastModified by Organizat ion Details LastModified Time Tobacco Smoking Status Former Smoker Marialuisa Bear null, [place] - [facility] 08/01/2021 17:07:44 Able To Swim? Yes [email or web address] Information not available 06/02/2023 Do You Have An Advance Directive? No Information n ot available 10/13/2016 Do You Wear A Helmet When Biking? No [email or web address] Information not available 06/02/2023 Are You Blind Or Do You Have Difficulty Seeing? No [email or web address] Information n ot available 06/02/2023 Is Blood Transfusion Acceptable In An Emergency? Yes Information not available 09/12/2021 What Is Your Level Of Caffeine Consumption? Moderate Information not available 10/13/2016 How Much Tobacco Do You Chew? None Information not available 09/12/2021 In The 14 Days Before Symptom Onset, Have You Had Close Contact With A Laboratory-confirm ed COVID-19 While That Case Was Ill? No [email or web address] Information n ot available 06/02/2023 In The 14 Days Before Symptom Onset, Have You Had Close Contact With A Person Who Is Under Investigation For COVID-19 While That Person Was Ill? No [email or web address] Information not available 06/02/2023 Have You Been To An Area Known To Be High Risk For COVID-19? No [email or web address] Information not available 06/02/2023 Are You Deaf Or Do You Have Serious Difficulty Hearing? No Information not available 07/12/2021 What Type Of Diet Are You Following? REGULAR [email or web address] Information n ot available 06/02/2023 Which Illicit Or Recreational Drugs Have You Used? Denies Information not available 10/13/2016 Have You Processed Blood Or Body Fluids From An Ebola Virus Disease Patient Without Appropriate PPE? No [email or web address] Information not available 06/02/2023 Do You Reside In Or Have You Traveled To An Area Where Ebola Virus Transmission Is Active? No [email or web address] Information not available 06/02/2023 What Is The Highest Grade Or Level Of School You Have Completed Or The Highest Degree You Have Received? [id number] Information not available 09/12/2021 Swimming/diving No [email or web address] Informati on not available 06/02/2023 Have There Been Any Changes To Your Family Or Social Situation? No [email or web address] Information no t available 06/02/2023 What Is The Fluoride Status Of Your Home? Unknown [email or web address] Information not available 06/02/2023 When Did You Quit Smoking? 1-5yearssince lastcigarette Information not available 08/01/2021 Hard Of Hearing Or Deaf In One Or Both Ears? No [email or web address] Information not available 06/02/2023 Have You Recently Or Are You Planning To Travel To An Area With Zika Virus? No [email or web address] Information not available 06/02/2023 Legally Blind In One Or Both Eyes? No [email or web address] Information no t available 06/02/2023 Live Alone Or With Others? With Others [email or web address] Information not available 06/02/2023 Do You Have A Medical Power Of Alum Plant Supervisor? No [email or web address] Information not available 06/02/2023 What Was The Date Of Your Most Recent Tobacco Screening? 02/27/2025 Information not available 02/27/2025 How Many Children Do You Have? 2 [email or web address] Information not available 06/02/2023 Do You Use Protection During Sex? No [email or web address] Information not available 06/02/2023 What Is Your Relationship Status? Information not available 10/13/2016 Do You Use Your Seat Belt Or Car Seat Routinely? Yes Information not available 09/12/2021 Seat Belts Used Routinely Yes [email or web address] Information not available 06/02/2023 Are You Sexually Active? Yes Information not available 09/12/2021 Smoke Alarm In Home Yes [email or web address] Information not available 06/02/2023 Do You Have Smoke And Carbon Monoxide Detectors In Your Home? No Information not available 09/12/2021 At What Age Did You Start Smoking Tobacco? 8 Information not available 09/12/2021 Are You Passively Exposed To Smoke? No Information no t available 09/12/2021 General Stress Level Low [email or web address] Information not available 06/02/2023 Do You Use Sunscreen Routinely? No [email or web address] Information not available 12/24/2016 Has Tobacco Cessation Counseling Been Provided? Yes [email or web address] Information not available 10/05/2023 On What Date Was Tobacco Cessation Counseling Provided? 02/27/2025 Information not available 02/27/2025 Do You Have Difficulty Walking Or Climbing Stairs? No [email or web address] Information not available 06/02/2023 Sex: Male Functional Status Question Answer Note LastModified by Organizat ion Details LastModified Time Do you or have you ever used smokeless tobacco? Never used smokeless tobacco Information not available 10/07/2019 Are you currently employed? Yes Information not available 10/13/2016 Do you have transportation difficulties? No [email or web address] Information not available 06/02/2023 Are you able to care for yourself? Yes Information n ot available 10/13/2016 Do you have difficulty dressing or bathing? No [email or web address] Information not available 06/02/2023 Do you or have you ever used e-cigarettes or vape? Current user of electronic cigarettes [email or web address] Information not available 03/02/2023 What is your exercise level? Occasional Information not available 10/13/2016 Do you use any illicit or recreational drugs? No [email or web address] Information not available 12/02/2021 Do you or have you ever used any other forms of tobacco or nicotine? No [email or web address] Information not available 06/02/2023 What is your level of alcohol consumption? None Information not available 10/13/2016 Are you able to walk? YESWOREST [email or web address] Information not available 06/02/2023 Do you have difficulty doing errands alone? No [email or web address] Information not available 06/02/2023 What is your occupation? [place] Information not available 09/12/2021 Mental Status Question Answer Note LastModified by Organization D etails LastModified Time Do you have difficulty concentrating, remembering or making decisions? No [email or web address] Information no t available 06/02/2023 Family History Relationship Description Onset Age of this Age Resolved Age Notes LastModified by Organization Details LastModified Time Mother Type 2 diabetes mellitus Not available 2015 08:26:55 Father Malignant tumor of stomach Not available 2015 08:27:12 Medical History Condition Response Kidney Stones Y Depression N Diabetes N Arthritis Y Hypercholesterolemia Y Hypertension Y Immunizations Vaccine Type Date Status Note Provider Nam e and Address Organization Details Recorded Time Influenza, split virus, quadrivalent, preservative 1 completed Cl Light null, [place] - [facility] 07/12/2021 16:10:29 zoster, unspecified formulation 9 completed Not Available [facility] 10/26/2023 09:15:50 Influenza, split virus, trivalent, preservative 4 completed Rosalva Overton, [employer]PERINTENDENT [address], [place], [address], [place] - [facility] 07/28/2024 16:26:35 Hep B, adult 6 completed Angela Kinsel null, [place] - [facility] 09/16/2022 10:50:34 Td (adult), 2 Lf tetanus toxoid, preservative free, adsorbed 6 completed Angeal Kinsel null, [place] - [facility] 09/16/2022 10:50:34 Tdap 7 completed Angela Kinsel null, [place] - [facility] 09/16/2022 10:50:34 Influenza, split virus, quadrivalent, preservative 8 completed Angela Kinsel null, [place] - [facility] 09/16/2022 10:50:34 Hep B, adult 7 completed Angela Kinsel null, [place] - [facility] 09/16/2022 10:50:34 Hep B, adult 6 completed Angela Kinsel null, [place] - [facility] 09/16/2022 10:50:34 COVID-19 vaccine, vector-nr, rS-Ad26, PF, 0.5 mL 1 completed Angela Kinsel null, [place] - [facility] 09/16/2022 10:50:34 Tdap 1 completed Angela Kinsel null, [place] - [facility] 09/16/2022 10:50:34 COVID-19 vaccine, vector-nr, rS-Ad26, PF, 0.5 mL 1 completed Angela Kinsel null, [place] - [facility] 09/16/2022 10:50:34 Past Encounters Encounter ID Performer Location Encounter Start Date Encounter Closed Date Diagnosis/Indication Diagnosis SNOMED-CT Code Diagnosis ICD10 Code Diagnosis Note [id number] Rich Brush MD [address] [address] 06/26/2016 08:50:53 06/27/2016 09:01:59 Essential hypertension 41620078 I10 [id number] Rich Brush MD [address] [place] [address] 08/27/2016 15:06:09 08/29/2016 11:25:33 Dyspnea on exertion 57778133 R06.09 Essential hypertension 28578444 I10 History of depression 16 2407746 Z86.59 Dyspnea 630333846 R06.02 Obesity 576748519 E66.9 [id number] Iqra Daigle MD [address] [place] [address] 10/13/2016 09:25:01 10/13/2016 11:38:50 Adult health examination 593243283 Z00.00 [id number] Rich Brush MD [address] [place] [address] 11/18/2016 11:19:42 11/18/2016 12:54:06 Essential hypertension 79535732 I10 History of depression 16 9431014 Z86.59 Renewal of prescription 752971630 Z76.0 Aching pain 51505279 R52 Sinusitis 74743802 J32.9 Primary er ectile dysfunction 898456070 N52.9 Acute sinusitis 19024235 J01.90 [id number] Rich Brush MD [facility] [address] [place], [place] [address] [place] [address] 12/24/2016 08:42:46 12/24/2016 10:11:51 Screening for malignant neoplasm of colon 401419556 Z12.11 Body mass index 30+ - obesity 872322674 Z68.39 Active or passive immunization 322149038 Z23 Increased frequency of urination 783439041 R35.0 Essential hypertension 00290026 I10 Thyroid di sorder screening 416736734 Z13.29 Fatigue 37026811 R53.83 History of depression 16 8951686 Z86.59 Obesity 894963887 E66.9 [id number] Rich Brush MD [address] [place] [address] 01/16/2017 09:52:31 01/16/2017 11:58:55 Gastroesophageal reflux disease 760069721 K21.9 Otitis media 15087955 H6 6.92 Pain in throat 859297208 R07.0 Otitis externa 4894765 H 62.42 Fatigue 25617543 R53.83 Essential hypertension 79015119 I10 History of depression 16 1750535 Z86.59 [id number] Rich Brush MD [address] [place] [address] 04/22/2017 15:16:39 04/22/2017 16:25:12 Diabetes mellitus screening 044588483 Z13.1 Gastroesop hageal reflux disease 356792094 K21.9 Fatigue 85559296 R53.83 Obesity 774175691 E66.9 Essential hypertension 38134175 I10 Renewal of prescription 432925456 Z76.0 Depressive disorder 3548 9007 F32.9 [id number] Manjula Aleman [address] [place] [address] 07/14/2017 11:10:23 07/14/2017 12:02:10 Generalized aches and pains 66168150 R52 Nausea 578976273 R11.0 Pain of joint 34606871 M 25.50 [id number] Manjula Aleman [address] [place] [address] 07/27/2017 14:39:52 07/27/2017 15:58:03 Gastroesophageal reflux disease 476195528 K21.9 Primary er ectile dysfunction 255268067 N52.9 Anxiety 82319217 F41.9 [id number] Manjula Aleman [address] [place] [address] 11/13/2017 15:53:52 11/13/2017 17:20:10 History of depression 271389621 Z86.59 Gastroesop hageal reflux disease 174428074 K21.9 Obesity 907896547 E66.9 Primary er ectile dysfunction 410356612 N52.9 Essential hypertension 56239599 I10 Fatigue 61590066 R53.83 Pain of joint 61944712 M 25.50 Renewal of prescription 476503026 Z76.0 Osteoarthr itis of knee 928864645 M17.9 [id number] Manjula Aleman [address] [place] [address] 02/22/2018 15:11:38 02/22/2018 16:49:40 General examination of patient 356146484 Z00.01 Screening for malignant neoplasm of prostate 536811795 Z12.5 Essential hypertension 79130067 I10 Gastroesop hageal reflux disease 172096109 K21.9 Body mass index 30+ - obesity 831105430 Z68.34 Pain of joint 61807945 M 25.50 Low back pain 826799614 M54.5 [id number] Manjula Aleman [address] [place] [address] 05/21/2018 11:21:38 05/21/2018 12:26:06 Essential hypertension 18004226 I10 Gastroesop hageal reflux disease 422494141 K21.9 Obesity 533814045 E66.9 History of cardiac catheterization 4711783807 9100 Z98.890 Pain of joint 50688513 M 25.50 Renewal of prescription [id number] Z76.0 History of depression 16 6210831 Z86.59 Low back pain 913456117 M54.5 Syncope 646574966 R55 [id number] Manjula Aleman [address] [place] [address] 06/07/2018 16:44:48 06/07/2018 18:20:56 Pain of joint 02414934 M25.50 Active or passive immunization 236113061 Z23 [id number] Arabella Aparicio [address] [place] [place] [address] 07/14/2018 16:20:01 08/25/2018 16:13:36 Administration of influenza vaccine 81761199 Z23 Pain of [facility] 34144513 M25.241 [id number] Manjula Aleman [address] [place] [address] 09/02/2018 13:39:40 09/02/2018 14:44:00 Pain of joint 39461399 M25.50 Essential hypertension 40037641 I10 [id number] Manjula Aleman [address] [place] [address] 10/07/2018 14:34:10 10/07/2018 16:03:27 Essential hypertension 39401157 I10 Gastroesop hageal reflux disease 203953887 K21.9 Obesity 871993378 E66.9 Primary er ectile dysfunction 586197733 N52.9 Osteoarthritis 296476329 M19.90 History of depression 16 6792917 Z86.59 Renewal of prescription 303940360 Z76.0 Unable to concentrate 60 772252 R41.802 [id number] Manjula Aleman [address] [place] [address] 11/09/2018 08:41:45 11/09/2018 09:41:31 General examination of patient 821601818 Z00.00 Essential hypertension 77778800 I10 Gastroesop hageal reflux disease 826153238 K21.9 Depressive disorder 3548 9007 F32.9 Pain of joint 19645401 M 25.50 Screening for cardiovascular system disease 206537431 Z13.6 Fatigue 14195753 R53.83 [id number] Manjula Aleman [address] [place] [address] 12/03/2018 10:47:35 12/03/2018 11:34:49 Pain of joint 95725889 M25.50 [id number] Manjula Aleman [address] [place] [address] 12/20/2018 10:12:26 12/20/2018 12:31:37 Abdominal pain 07788478 R10.9 Hernia of anterior abdominal wall 585232000 K43.9 Pain of joint 38884992 M 25.50 [id number] Manjula Aleman [address] [place] [address] 02/17/2019 16:33:40 02/17/2019 17:34:43 Pain of joint 93979358 M25.50 Nicotine dependence 5629 4008 F17.711 [id number] Manjula Aleman [address] [place] [address] 03/07/2019 13:37:26 03/07/2019 14:32:47 Upper respiratory infection 43961847 J06.9 Cough 68620285 R05 [id number] Manjula Aleman [address] [place] [address] 06/06/2019 13:31:13 06/06/2019 14:54:57 Allergic rhinitis 07451550 J30.1 Chronic osteoarthritis 12842538 M19.90 Acute sinusitis 72511788 J01.90 Chronic anxiety 25282213 9 F41.9 [id number] Manjula Aleman[address] [place] [address] 08/08/2019 11:13:33 08/08/2019 12:19:30 Acute sinusitis 02032649 J01.90 Pain of joint 42466540 M 25.50 [id number] Manjula Aleman[address] [place] [address] 09/30/2019 14:12:58 09/30/2019 15:44:16 Essential hypertension 15692738 I10 Body mass index 30+ - obesity 132175351 Z68.34 Z68.31 Acute righ t otitis media 787967404 H66.91 Osteoarthr itis of knee 971256138 M17.9 [id number] Rich Brush MD [address] [place] [address] 10/07/2019 15:39:54 10/07/2019 16:09:50 Pruritic rash 07433939 L28.2 [id number] Manjula Aleman [address] [place] [address] 4 10/24/2019 16:20:56 10/24/2019 17:31:59 Knee pain 07613190 M25.561 Pain of ri ght hip joint 3382253150 32314 M25.551 Pain in throat 789602382 R07.0 Allergic rhinitis 634739 04 J30.1 Migraine 99474594 G43.90 9 Acute sinusitis 59700107 J01.90 [id number] Manjula Aleman [address] [place] [address] 11/04/2019 14:38:15 11/04/2019 16:02:49 Cough 91437933 R05 Pneumonia 191393207 J18. 9 [id number] Manjula [address]man[address] [place] [address] 11/18/2019 10:22:14 11/18/2019 11:07:22 Left lower zone pneumonia 636247091 J18.1 Cough 94650646 R05 Candidiasis of mouth 797 81565 B37.0 [id number] Manjula Aleman [address] [place] [address] 02/03/2020 13:55:18 02/03/2020 14:56:18 Anxiety 44604063 F41.9 Depressive disorder 3548 9007 F32.9 Suicidal thoughts 134362 6 R45.207 [id number] Manjula Aleman [address] [place] [address] 03/05/2020 16:50:27 03/05/2020 17:33:47 Knee pain 68555646 M25.569 Chronic osteoarthritis 07106415 M19.90 Chronic depression 54935 0009 F34.1 Chronic anxiety 49545655 9 F41.9 Insomnia 219923452 G47.0 0 Fatigue 44752771 R53.83 [id number] Ambrose Moran LCSW [facility] [address] [place] [address] 03/07/2020 08:44:08 03/07/2020 09:55:41 [id number] [place]ella [place] [address] [place] [address] 04/11/2020 13:10:14 04/11/2020 14:22:43 Unintentional weight loss 882369203 R63.4 4o pounds in the last 18 months Nausea and vomiting 1693 1999 R11.2 Diarrhea 56848406 R19.7 [id number] Ambrose Moran LCSW [facility] [address] [place] [address] 05/04/2020 14:47:03 05/04/2020 15:30:34 [id number] Ambrose Moran LCSW [facility] [address] [place] [address] 4 06/08/2020 08:59:14 06/08/2020 10:05:42 [id number] Ambrose Moran [employer] [facility] [address] [place] [address] 4 06/29/2020 14:51:37 06/29/2020 16:15:40 [id number] Arabella Aparicio[address] [place] [address] 07/04/2020 16:33:48 07/04/2020 17:26:47 Knee pain 67700436 M25.569 bilaterall y Nicotine dependence 5629 4008 F17.200 pt states he tried chantix and will get back to us on the nicotine patches if he decides he wants them Nausea 858490995 R11.0 Chronic depression 58545 0009 F34.1 Chronic osteoarthritis 87339310 M19.90 [id number] Ambrose Moran LCSW [facility] [address] [place] [address] 4 07/13/2020 15:54:51 07/13/2020 16:53:16 [id number] Ambrose Moran [facility] [address] [place] [address] 4 07/27/2020 15:47:17 07/27/2020 16:51:26 [id number] Ambrose Moran [facility] [address] [place] [address] 4 08/31/2020 15:51:31 08/31/2020 16:26:49 [id number] Ambrose Moran [facility] [address] [place] [address] 4 09/27/2020 07:54:41 09/27/2020 08:26:30 [id number] Arabella Aparicio [address] [place] [address] 4 12/12/2020 14:01:46 12/12/2020 14:45:39 Kidney stone 78565089 N20.0 Pain of mu ltiple joints 82677502 M25.50 [id number] Manjula Aleman [address] [place] [address] 01/28/2021 16:47:59 01/28/2021 17:44:49 Low back pain 980168975 M54.5 Chronic anxiety 26683594 9 F41.9 Pain of mu ltiple joints 02078174 M25.50 Chronic depression 10880 0009 F34.1 Essential hypertension 71267572 I10 Gastroesop hageal reflux disease 433613277 K21.9 Pain of joint 67123964 M 25.50 [id number] Manjula Aleman [address] [address] 4 03/12/2021 16:39:07 03/12/2021 17:27:12 Low back pain 964375925 M54.5 worsening Pain of ri ght hip joint 5071598381 55520 M25.551 new worsening Nausea 022081445 R11.0 [id number] Manjula Aleman [place] [address] [place] [address] 04/12/2021 16:14:40 04/12/2021 17:11:39 Essential hypertension 56127260 I10 Pain of ri ght hip joint 9637572759 86997 M25.551 new worsening [id number] Manjula Aleman [address] [place] [address] 4 05/13/2021 08:01:02 05/13/2021 09:03:22 Laceration of skin 359532274 T14.8XXD Infection of skin 215884 000 L08.9 [id number] Manjula Aleman [address] [place] [address] 06/13/2021 15:36:55 06/13/2021 16:35:11 Pain of right hip joint 7002137694 73725 M25.551 new worsening Pain of joint 93771540 M 25.50 Essential hypertension 28097228 I10 Low back pain 858135303 M54.5 worsening Chronic anxiety 26007825 9 F41.9 Pain of mu ltiple joints 17570282 M25.50 Smoker 31341959 F17.887 [id number] Sukumar Adler [address] [place] [address] 07/12/2021 14:51:11 07/12/2021 15:29:09 Pain of right hip joint 7055655699 27124 M25.551 Gastroesop hageal reflux disease 409445099 K21.9 Essential hypertension 36765940 I10 Chronic anxiety 94394720 9 F41.9 Administra tion of influenza vaccine 38308281 Z23 Administra tion of SARS-CoV-2 antigen vaccine 919268931 Z23 [id number] Arabella Aparicio [address] [place] [address] 07/15/2021 13:34:55 07/15/2021 15:00:53 Viral screening 526435415 Z11.52 Acute fron pratik sinusitis 62204832 J01.10 [id number] Manjula Short[address] [address] 08/01/2021 16:47:31 08/01/2021 17:41:00 Essential hypertension 70605488 I10 Uncontroll ed Pain of mu ltiple joints 87532190 M25.50 Body mass index 30+ - obesity 752509638 Z68.31 Chronic back pain 473839 002 G89.29 Pain of ri ght hip joint 5771462484 25610 M25.551 worsening [id number] Sukumar Adler [address] [place] [address] 09/03/2021 15:59:23 09/03/2021 16:32:52 Pain of left hip joint 9475700511 84726 M25.552 Pain of ri ght hip joint 4230171401 39151 M25.551 Essential hypertension 63576004 I10 [id number] Majnula Aleman [address] [place] [address] 09/12/2021 15:44:05 09/12/2021 16:52:53 Pre-surgery evaluation 098930929 Z01.818 Aphthous u lcer of mouth 021284792 K12.0 [id number] Manjula Aleman [address] [place] [address] 10/28/2021 14:15:35 10/28/2021 15:30:28 Gastroesophageal reflux disease 542841741 K21.9 Pain of ri ght hip joint 1688750200 79682 M25.551 worsening Chronic anxiety 38135140 9 F41.9 Low back pain 561006021 M54.50 Renewal of prescription 060546345 Z76.0 Essential hypertension 37639922 I10 stable-imp roved Pain of mu ltiple joints 41001732 M25.50 Chronic osteoarthritis 78704082 M19.90 Body mass index 30+ - obesity 474586263 Z68.32 Upper resp iratory infection 91523784 J06.9 [id number] Tammy Sadler [address] [place] [address] 12/02/2021 10:16:01 12/02/2021 11:20:21 Pain of multiple joints 09283635 M25.50 Body mass index 30+ - obesity 201514187 Z68.33 Neuropathy 020015392 G62 .9 Osteoarthritis 483119823 M19.90 [id number] Tammy Sadler[address] [place] [address] 01/01/2022 16:31:11 01/01/2022 17:42:00 Pain of multiple joints 94659047 M25.50 Low back pain 116559472 M54.50 Body mass index 30+ - obesity 874889520 Z68.34 Osteoarthritis 917730163 M19.90 Chronic back pain 539721 002 G89.29 Peripheral neuropathic pain 393551929 M79.2 [id number] Tammy Sadler[address] [address] 01/10/2022 11:09:37 01/10/2022 12:25:34 Body mass index 30+ - obesity 227650380 Z68.33 Benign par oxysmal positional vertigo 757603356 H81.13 Pain of ri ght knee joint 4732759592 03355 M25.561 Essential hypertension 67021710 I10 uncontroll ed [id number] Tammy Sadler[address] 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 Hernandez [id number] Tammy Sadler[address] [place] [place] [address] 05/23/2022 16:27:46 05/26/2022 13:57:47 Chronic anxiety 777871303 F41.9 Gastroesop hageal reflux disease 774809863 K21.9 Body mass index 30+ - obesity 974304048 Z68.34 Obesity 265295194 E66.3 Dizziness 899648976 R42 History of spinal fusion 2013465055 9107 Z98.1 L4-S1 ALIF with posterior fusion, Dr. Hernandez Pain of mu ltiple joints 49884120 M25.50 Osteoarthritis 911759089 M19.90 Neuropathy 593611885 G62 .9 Long-term drug therapy 465654591 Z79.899 Skin lesion 80600326 L98 .9 anterior upper left chest [id number] Tammy Sadler[address] [place] [place] [address] 06/03/2022 11:28:03 06/03/2022 12:28:29 Viral gastroenteritis 395017591 A08.4 Upper resp iratory infection 61734389 J06.9 Suspected COVID-19 39162 4004 Z20.725 [id number] Tammy Sadler [address] [place] [address] 08/18/2022 14:47:53 08/18/2022 16:37:00 Influenza-like illness 85476423 B34.9 Viral screening 56294646 4 Z11.52 Body mass index 30+ - obesity 985205756 Z68.33 Obesity 697884163 E66.3 Pain of mu ltiple joints 08991432 M25.50 Osteoarthritis 459768050 M19.90 Neuropathy 692527319 G62 .9 Chronic anxiety 92198445 9 F41.9 [id number] Tammy Sadler[address] [place] [address] 09/02/2022 16:13:17 09/03/2022 08:56:22 Acute bacterial sinusitis 39874771 J01.90 Dizziness 364064042 R42 [id number] Deisy Mena [facility] [address] [place] [address] 09/16/2022 10:32:38 09/16/2022 11:15:35 Neoplasm of skin 804519501 D49.2 return for shave biopsy to rule out BCC discussed this process in detail today [id number] Tammy Sadler APRN [address] [place] [address] 09/29/2022 09:13:56 09/29/2022 11:30:08 Pharyngitis 141161147 J02.9 Influenza- like illness 14849937 B34.9 Acute uppe r respiratory infection 38133371 J06.9 Gastroesop hageal reflux disease 773124046 K21.9 Body mass index 30+ - obesity 873901721 Z68.32 Obesity 865065652 E66.9 [id number] Rich Brush MD [address] [place] [address] 10/31/2022 10:18:07 10/31/2022 11:26:17 Candidiasis of mouth 26198176 B37.0 Osteoarthritis 621512404 M19.90 Pain of mu ltiple joints 03543532 M25.50 Chronic osteoarthritis 99666268 M19.90 Candidiasis 46933236 B37 .9 [id number] Tammy Sadler [employer] [address] [place] [place] [address] 11/21/2022 13:44:48 11/21/2022 15:35:53 Osteoarthritis 179768823 M19.90 Pain of ri ght shoulder joint 8834580628 2665177 M25.511 Long-term drug therapy 503234490 Z79.058 [id number] Deisy Mena [facility] [address] [place] [address] 01/06/2023 08:18:52 01/06/2023 09:18:46 Neoplasm of skin 051533999 D49.2 rule out BCC discussed this process in detail today [id number] Tammy Sadler [employer] [address] [place] [address] 03/02/2023 10:36:14 03/02/2023 11:59:01 Osteoarthritis 803725137 M19.90 Pain of mu ltiple joints 27598209 M25.50 Neuropathy 766613037 G62 .9 Gastroesop hageal reflux disease 763716177 K21.9 controlled Essential hypertension 98770227 I10 Renewal of prescription 357127760 Z76.0 Chronic anxiety 45364772 9 F41.9 controlled Long-term drug therapy 506634665 Z79.899 Pain of ri ght shoulder joint 8844297253 4812455 M25.659 [id number] Tammy Sadler [place] [address] [place] [address] 06/02/2023 08:04:57 06/02/2023 09:26:29 General examination of patient 022137238 Z00.00 Hyperlipid emia screening 258961977 Z13.220 Screening for malignant neoplasm of prostate 590182050 Z12.5 Exercises education, guidance, and counseling 687139540 Z71.82 The patient was advised to continue a healthy diet and exercise regularly. Dietary ma nagement surveillance 509483952 Z71.3 Body mass index 30+ - obesity 422480912 Z68.31 Obesity 611947365 E66.9 Osteoarthritis 326973552 M19.90 Gastroesop hageal reflux disease 469076745 K21.9 controlled Essential hypertension 86438384 I10 controlled Neuropathy 079469791 G62 .9 Renewal of prescription 565377566 Z76.0 Chronic anxiety 88605871 9 F41.9 controlled Long-term drug therapy 417215186 Z79.899 Viral screening 42364480 4 Z11.52 Chronic low back pain 27 2784484 M54.50 History of lumbar fusion 4719463584 9106 Z98.1 L4-S1 ALIF with posterior fusion, Dr. Hernandez, [facility], October 2021 [id number] Tammy Sadler [place] [address] [place] [address] 06/10/2023 09:46:55 06/10/2023 10:47:28 Pharyngitis 667594083 J02.9 [id number] Tammy Sadler [place] [place] [address] 09/09/2023 11:18:32 09/09/2023 12:15:27 Chronic low back pain 173099791 M54.50 Neuropathy 076280483 G62 .9 Osteoarthritis 324239238 M19.90 Pain of mu ltiple joints 88043814 M25.50 Essential hypertension 59703810 I10 controlled Chronic anxiety 10500748 9 F41.9 controlled Renewal of prescription 564311555 Z76.0 Gastroesop hageal reflux disease 220356863 K21.9 controlled Long-term drug therapy 920029602 Z79.296 [id number] Tammy Sadler [address] [place] [address] 10/05/2023 10:15:46 10/05/2023 11:09:02 Pharyngitis 828111067 J02.9 Influenza- like illness 77929360 B34.9 Streptococ kyung sore throat 97168449 J02.0 [id number] Tammy Sadler [address] [place] [address] 10/26/2023 09:14:40 10/26/2023 09:51:46 Neck pain 83839578 M54.2 Falling injury 543348954 W19.XXXA [id number] Tammy Sadler[address] [place] [address] 12/28/2023 14:48:08 12/28/2023 16:35:51 Kidney stone 50319718 N20.0 Chronic anxiety 17543131 9 F41.9 controlled Neuropathy 350220185 G62 .9 Gastroesop hageal reflux disease 451512961 K21.9 controlled Renewal of prescription 886507409 Z76.0 Essential hypertension 71756842 I10 controlled Long-term drug therapy 992827525 Z79.447 [id number] Sammy Nicholson PA-C [address] [address] 03/02/2024 15:36:35 03/02/2024 16:27:33 Herpes zoster 4669310 B02.9 Infection of skin 716696 000 L08.9 Discussed supportive care with patient. Advised to drink plenty of fluids and fluids containing electrolyt es. Try to get plenty of rest. Can take OTC pain medication such as tylenol or ibuprofen (dosed based on weight for pediatric patients) as needed to relieve fever, headache, or body aches. If patient should get worse call clinic or go to emergency room. Discussed expected course and cautioned signs and sxs to seek further treatment. Systolic murmur 28969760 R01.1 known per pt, prior cards eval without concerning etiology [id number] Sammy Nicholson PA-C [facility] [address] [place] [address] 03/11/2024 09:25:10 03/11/2024 10:43:04 Cramp 47330356 R25.2 Check labwork, further diagnositi c decision making pending results. Fatigue 00168153 R53.83 Endocrine/ metabolic screening 039292660 Z13.228 Liver enzy mes level above reference range 449949832 R74.01 Essential hypertension 77431463 I10 Check BP at home. Try to keep daily diary. If SBP >170 or if DBP > 100 call clinic, MD, or seek help. Dangers of high BP discussed. I also recommende d to reduce dietary sodium intake to less than 100 mEq (2.3 g of sodium or 6 g of sodium chloride)/ day. Discussed weight loss, DASH diet and exercise program as lifestyle changes to help control BP. Cautioned to watch for sxs such as chest pain, vision changes, MCGARRY, or SOA and alert clinic or ER if present. Screening for malignant neoplasm of prostate 547935626 Z12.5 Chronic anxiety 70631869 9 F41.9 Renewal of prescription 168019999 Z76.0 Gastroesop hageal reflux disease 347108249 K21.9 [id number] Sammy Nicholson PA-C [facility] [address] [place] [address] 03/25/2024 07:47:58 03/25/2024 09:29:14 Chronic anxiety 718259908 F41.9 Chronic depression 51412 0009 F34.1 Testostero ne level below reference range 181373366 R89.1 open to urology referral for T replacemen t Serum crea tinine above reference range 293014302 R79.89 Check labwork, further diagnositi c decision making pending results. [id number] [facility] [address] [place] [address] 03/29/2024 14:07:00 03/29/2024 15:39:41 Chest pain 22893529 R07.9 Testostero ne level below reference range 361777811 R89.1 [id number] [facility] [address] [place] [address] 04/01/2024 11:47:09 04/01/2024 12:51:34 Testosterone level below reference range 967751318 R89.1 Acute kidney injury 1466 9001 N17.9 Sensation as if urinary bladder still full 032714996 R39.14 Snoring 36252842 R06.83 [id number] Rosalva Overton, [facility] [address] [place] [address] 04/11/2024 15:16:04 04/11/2024 16:28:39 Nicotine dependence 80070251 F17.200 Essential hypertension 12501082 I10 Body mass index 30+ - obesity 112245570 Z68.35 Obesity 056863349 E66.9 Long-term drug therapy 426199597 Z79.899 Neuropathy 714237939 G62 .9 Chronic anxiety 40968727 9 F41.9 Gastroesop hageal reflux disease 860655708 K21.9 Osteoarthr itis of knee 010496206 M17.9 Acute hilda l insufficiency 360118965 N28.9 Bilateral cramp of muscle of lower limbs 2418773122 8345436 R25.2 Hyperlipidemia 63354224 E78.5 [id number] [facility] [address] [place] [address] 04/29/2024 14:07:18 04/29/2024 15:53:06 Testosterone level below reference range 452800798 R89.1 Coronary arteriosclerosis 88385536 I25.10 Male hypogonadism 639611 06 E29.1 Discussed with pt protocol/pedro luis schwarz for evaluating /treating hypogonadi sm: - will begin replacemen t and standardiz ed dose, and then may adjust in the future.--- - Minimum visit in office [id number] and possibly labs as needed.--- - Pt to visit monthly for refills. no refill to be given if overdue for visit to office.- Controlled substance agreement required. UPDATED 04/29/24- UDS - UPDATED--- - If failed UDS- no prescripti on for controlled substance will be given.- LOTTIE/PDM R at every refill. UPDATED Essential hypertension 54053133 I10 Kidney stone 70242925 N2 0.0 Reduced libido 4277081 R 68.82 Erectile dysfunction 860 792439 N52.9 Obesity 852012385 E66.9 Needle phobia 141560579 F40.231 difficulty with doing his own injections d/t fear of needles and incoordina tion. Dysmetria 00155155 R27.8 difficulty with doing his own injections d/t fear of needles and incoordina tion. [id number] Francoise Galeas [employer] [facility] [address] [place] [address] 07/28/2024 08:16:07 07/28/2024 09:04:11 Male hypogonadism 81208522 E29.1 Discussed with pt protocol/pedro luis schwarz for evaluating /treating hypogonadi sm: - will begin replacemen t and standardiz ed dose, and then may adjust in the future.--- - Minimum visit in office [id number] and possibly labs as needed.--- - Pt to visit monthly for refills. no refill to be given if overdue for visit to office.- Controlled substance agreement required. UPDATED 04/29/24- UDS - UPDATED--- - If failed UDS- no prescripti on for controlled substance will be given.- LOTTIE/PDM R at every refill. UPDATED daughter is MA and going to do his shots. Testostero ne level below reference range 329986166 R89.1 Coronary arteriosclerosis 33263090 I25.10 Essential hypertension 74588525 I10 Kidney stone 22167874 N2 0.0 Reduced libido 6664901 R 68.82 Erectile dysfunction 860 645749 N52.9 Obesity 188190884 E66.9 Needle phobia 380034261 F40.231 difficulty with doing his own injections d/t fear of needles and incoordina tion. Dysmetria 28412807 R27.8 difficulty with doing his own injections d/t fear of needles and incoordina tion. Long-term drug therapy 483333899 Z79.891 Obstructiv e sleep apnea syndrome 85653071 G47.33 sees rita bell-[place] , Severe *(05/03/20): severe obstructiv e sleep apnea with AHI: 45.1 snoring, and sleep-rela jax hypoxia with a nazia of 66%, and maximum heart rate 97 BPM Patient me dical record not available 250961146 Z76.89 [id number] Francoise Galeas [employer] [facility] [address] [place] [address] 08/26/2024 14:47:54 08/26/2024 15:11:39 Male hypogonadism 97153870 E29.1 Discussed with pt protocol/p karishma for evaluating /treating hypogonadi sm: - will begin replacemen t and standardiz ed dose, and then may adjust in the future.--- - Minimum visit in office [id number] and possibly labs as needed.--- - Pt to visit monthly for refills. no refill to be given if overdue for visit to office.- Controlled substance agreement required. UPDATED 04/29/24- UDS - UPDATED--- - If failed UDS- no prescripti on for controlled substance will be given.- LOTTIE/PDM R at every refill. UPDATED daughter is MA and going to do his shots. Testostero ne level below reference range 087467953 R89.1 Coronary arteriosclerosis 59243620 I25.10 Essential hypertension 61963826 I10 Kidney stone 27751869 N2 0.0 Reduced libido 4435351 R 68.82 Erectile dysfunction 860 267910 N52.9 Obesity 670336362 E66.9 Needle phobia 461927844 F40.231 difficulty with doing his own injections d/t fear of needles and incoordina tion. Dysmetria 03554030 R27.8 difficulty with doing his own injections d/t fear of needles and incoordina tion. Long-term drug therapy 256869511 Z79.899 Obstructiv e sleep apnea syndrome 62479850 G47.33 sees rita bell-[place] , Severe *(05/03/20): severe obstructiv e sleep apnea with AHI: 45.1 snoring, and sleep-rela jax hypoxia with a nazia of 66%, and maximum heart rate 97 BPM Abnormal urine 738528557 R82.90 [id number] Rosalva Overton [facility] [address] [place] [address] 07/28/2024 10:07:35 07/28/2024 10:13:21 Influenza vaccine needed [id number] 106 Z23 [id number] Francoise Galeas [facility] [address] [place] [address] 09/22/2024 08:13:04 09/22/2024 09:18:14 Male hypogonadism 75017795 E29.1 Discussed with pt protocol/pedro luis schwarz for evaluating /treating hypogonadi sm: - will begin replacemen t and standardiz ed dose, and then may adjust in the future.--- - Minimum visit in office [id number] and possibly labs as needed.--- - Pt to visit monthly for refills. no refill to be given if overdue for visit to office.- Controlled substance agreement required. UPDATED 04/29/24- UDS - UPDATED--- - If failed UDS- no prescripti on for controlled substance will be given.- LOTTIE/PDM R at every refill. UPDATED daughter is MA and going to do his shots. Testostero ne level below reference range 237179767 R89.1 Coronary arteriosclerosis 20096155 I25.10 Essential hypertension 80938622 I10 Kidney stone 98503225 N2 0.0 Reduced libido 1916567 R 68.82 Erectile dysfunction 860 649170 N52.9 Obesity 351606935 E66.9 Needle phobia 584416063 F40.231 difficulty with doing his own injections d/t fear of needles and incoordina tion. Dysmetria 81998220 R27.8 difficulty with doing his own injections d/t fear of needles and incoordina tion. Long-term drug therapy 640948613 Z79.899 Obstructiv e sleep apnea syndrome 68194265 G47.33 sees rita arabella-[place] , Severe *(05/03/20): severe obstructiv e sleep apnea with AHI: 45.1 snoring, and sleep-rela jax hypoxia with a nazia of 66%, and maximum heart rate 97 BPM [id number] Rosalva Overton [facility] [address] [place], [place] [address] [place] [place] [address] 08/29/2024 11:13:13 08/29/2024 12:44:00 Nicotine dependence 83730153 F17.200 Testostero ne level below reference range 375596581 R89.1 Chronic anxiety 00461806 9 F41.9 Chronic depression 35819 0009 F34.1 Gastroesop hageal reflux disease 943757089 K21.9 Chronic low back pain 27 1969717 M54.50 Neuropathy 111204708 G62 .9 Hyperlipidemia 94923050 E78.5 Essential hypertension 17176096 I10 Body mass index 30+ - obesity 420130493 Z68.33 Obesity 579029037 E66.9 Coronary arteriosclerosis 92035967 I25.10 Orthopnea 23915927 R06.0 1 Osteoarthr itis of knee 491291698 M17.9 Bilateral cramp of muscle of lower limbs 8131724895 3504679 R25.2 [id number] Rosalva Overton [facility] [address] [place] [address] 09/15/2024 15:19:55 09/15/2024 17:17:18 Nicotine dependence 02288635 F17.200 Chronic depression 55560 0009 F34.1 Chronic anxiety 94282467 9 F41.9 Body mass index 30+ - obesity 727664888 Z68.33 Obesity 061635690 E66.9 Acute sinusitis 01020766 J01.90 [id number] Francoise Galeas [facility] [address] [place] [address] 10/20/2024 08:18:15 10/20/2024 09:00:04 Male hypogonadism 15877680 E29.1 Discussed with pt protocol/p karishma for evaluating /treating hypogonadi sm: - will begin replacemen t and standardiz ed dose, and then may adjust in the future.--- - Minimum visit in office [id number] and possibly labs as needed.--- - Pt to visit monthly for refills. no refill to be given if overdue for visit to office.- Controlled substance agreement required. UPDATED 04/29/24- UDS - UPDATED--- - If failed UDS- no prescripti on for controlled substance will be given.- LOTTIE/PDM R at every refill. UPDATED daughter is AGUSTINA and going to do his shots. Testostero ne level below reference range 722834057 R89.1 Coronary arteriosclerosis 53368192 I25.10 Essential hypertension 21083174 I10 Kidney stone 70921105 N2 0.0 Reduced libido 6172813 R 68.82 Erectile dysfunction 860 442814 N52.9 Obesity 010853270 E66.9 Needle phobia 470903696 F40.231 difficulty with doing his own injections d/t fear of needles and incoordina tion. Dysmetria 59755489 R27.8 difficulty with doing his own injections d/t fear of needles and incoordina tion. Long-term drug therapy 530969778 Z79.899 Obstructiv e sleep apnea syndrome 16368821 G47.33 sees rita bell-[place] , Severe *(05/03/20 24): severe obstructiv e sleep apnea with AHI: 45.1 snoring, and sleep-rela jax hypoxia with a nazia of 66%, and maximum heart rate 97 BPM [id number] Francoise Galeas [facility] [address] [place] [address] 11/18/2024 07:53:46 11/18/2024 08:56:19 Male hypogonadism 45485622 E29.1 Discussed with pt protocol/p karishma for evaluating /treating hypogonadi sm: - will begin replacemen t and standardiz ed dose, and then may adjust in the future.--- - Minimum visit in office [id number] and possibly labs as needed.--- - Pt to visit monthly for refills. no refill to be given if overdue for visit to office.- Controlled substance agreement required. UPDATED 04/29/24- UDS - UPDATED--- - If failed UDS- no prescripti on for controlled substance will be given.- LOTTIE/PDM R at every refill. UPDATED daughter is MA and going to do his shots. Testostero ne level below reference range 912301223 R89.1 Coronary arteriosclerosis 78872937 I25.10 Essential hypertension 88255548 I10 Kidney stone 22882419 N2 0.0 Reduced libido 1868720 R 68.82 Erectile dysfunction 860 605827 N52.9 Obesity 847926301 E66.9 Needle phobia 183982350 F40.231 difficulty with doing his own injections d/t fear of needles and incoordina tion. Dysmetria 48186062 R27.8 difficulty with doing his own injections d/t fear of needles and incoordina tion. Long-term drug therapy 999638578 Z79.899 Obstructiv e sleep apnea syndrome 19335577 G47.33 sees rita bell-[place]ERC[place] , Severe *(05/03/20): severe obstructiv e sleep apnea with AHI: 45.1 snoring, and sleep-rela jax hypoxia with a nazia of 66%, and maximum heart rate 97 BPM Benign pro static hyperplasia with outflow obstruction 042763730 N40.1 [id number] Francoise Galeas APRN [facility] [address] [place] [address] 12/16/2024 07:58:11 12/16/2024 09:01:16 Male hypogonadism 23847405 E29.1 Discussed with pt protocol/p karishma for evaluating /treating hypogonadi sm: - will begin replacemen t and standardiz ed dose, and then may adjust in the future.--- - Minimum visit in office [id number] and possibly labs as needed.--- - Pt to visit monthly for refills. no refill to be given if overdue for visit to office.- Controlled substance agreement required. UPDATED 04/29/24- UDS - UPDATED--- - If failed UDS- no prescripti on for controlled substance will be given.- LOTTIE/PDM R at every refill. UPDATED daughter is MA and going to do his shots. discussed TRT options. avoid topicals d/t risk of exposure to and children, anticipate issues with absorption as well d/t reported hyperhidro sis. Testostero ne level below reference range 407646285 R89.1 Coronary arteriosclerosis 39552900 I25.10 Essential hypertension 63559017 I10 Kidney stone 54229382 N2 0.0 Reduced libido 7583343 R 68.82 Erectile dysfunction 860 070340 N52.9 Obesity 112722670 E66.9 Needle phobia 907358522 F40.231 difficulty with doing his own injections d/t fear of needles and incoordina tion. Dysmetria 42755215 R27.8 difficulty with doing his own injections d/t fear of needles and incoordina tion. Long-term drug therapy 635207150 Z79.899 Obstructiv e sleep apnea syndrome 92035734 G47.33 sees rita bell-[place] , Severe *(05/03/20 24): severe obstructiv e sleep apnea with AHI: 45.1 snoring, and sleep-rela jax hypoxia with a nazia of 66%, and maximum heart rate 97 BPM Benign pro static hyperplasia with outflow obstruction 888607130 N40.1 [id number] Rosalva Overton [facility] [address] [place] [place] [address] 12/01/2024 07:52:40 12/01/2024 10:22:40 Chronic depression 411791823 F34.1 does endorse situationa l anxiety / stress with possible kidney cancer Delay when starting to pass urine 5801942 R39.11 Paresthesi a of bilateral hands 248008418 R20.2 [id number] [facility] [address] [place] [address] 01/25/2025 16:09:08 02/01/2025 15:30:50 Male hypogonadism 47095726 E29.1 Discussed with pt protocol/p karishma for evaluating /treating hypogonadi sm: - will begin replacemen t and standardiz ed dose, and then may adjust in the future.--- - Minimum visit in office [id number] and possibly labs as needed.--- - Pt to visit monthly for refills. no refill to be given if overdue for visit to office.- Controlled substance agreement required. UPDATED 04/29/24- UDS - UPDATED--- - If failed UDS- no prescripti on for controlled substance will be given.- LOTTIE/PDM R at every refill. UPDATED daughter is AGUSTINA and going to do his shots. discussed TRT options. avoid topicals d/t risk of exposure to and children, anticipate issues with absorption as well d/t reported hyperhidro sis. Obstructiv e sleep apnea syndrome 70310510 G47.33 sees rita bell-[place] , Severe *(05/03/20): severe obstructiv e sleep apnea with AHI: 45.1 snoring, and sleep-rela jax hypoxia with a nazia of 66%, and maximum heart rate 97 BPM Benign pro static hyperplasia with outflow obstruction 612414811 N40.1 Testostero ne level below reference range 045784055 R89.1 Coronary arteriosclerosis 71938663 I25.10 Essential hypertension 75710225 I10 Kidney stone 91755587 N2 0.0 Reduced libido 4700953 R 68.82 Erectile dysfunction 860 209556 N52.9 Obesity 612829922 E66.9 Needle phobia 406115601 F40.231 difficulty with doing his own injections d/t fear of needles and incoordina tion. Dysmetria 71628525 R27.8 difficulty with doing his own injections d/t fear of needles and incoordina tion. Long-term drug therapy 402688573 Z79.953 [id number] Rosalva Overton APRN [facility] [address] [place] [address] 01/03/2025 17:25:12 01/03/2025 17:56:35 Nicotine dependence 45342023 F17.200 Body mass index 30+ - obesity 482155823 E66.9 Obesity 516117852 E66.9 Edema of foot 169781920 R60.0 [id number] Rosalva Overton APRN [facility] [address] [place] [address] 02/27/2025 08:11:09 02/27/2025 08:46:10 Testosterone level below reference range 762178400 R89.1 Nicotine dependence 5629 4008 F17.200 Body mass index 30+ - obesity 008765231 Z68.33 Obesity 376354726 E66.9 Male hypogonadism 806645 06 E29.1 Health Concerns Section Related Observation LastModified by Organization Detai ls LastModified Time None Recorded Concern Status LastModified by Organization Details LastModified Time None Recorded Advance Directives Directive N: Payers Insurance Date Sequence Insurance Name Policy Number Policy Tripp Covered Member ID Tripp Member ID Guarantor Name 09/11/2022 1 [facility] Thierno Hagan Latha [id number] Thiernobettina Azul 09/11/2022 1 [facility] [id number] Thierno Danya Azul [id number] Thierno Hagan Latha 09/11/2022 [place] [facility]ILL[facility] (MEDICAID) Thierno Azul [id number] Thiernobettina Azul 09/11/2022 1 [facility] ([place] [facility] Thierno Hagan Latha [id number] Thierno Hagan Latha 01/25/2025 1 [place] [id number] Thierno Azul [id number] Thierno M Latha 03/24/2025 1 [place] [employer] X (HMO) [id number] Thierno Azul [id number] Thierno Azul 09/11/2022 1 [employer] ([place]) Thierno Azul [id number] Thierno Azul 09/11/2022 1 [employer] (POS) [id number] Thierno Azul [id number] Thierno Azul Notes Date Note Type Note Provider Name and Address Organization Details Recorded Time 12/01/2024 text/html Presents for iss ues of decreased urine production and hesitancyAlso reports increased hunger and weight gain since starting testosterone injectionsDoes endorse some suprapubic pain at times. Denies any CVA.Denies any foul odor or discoloration to urineNo fever or chillsIs also having issues of pain in bilateral forearm and hands with certain movements - occurring for past several months - recently worseningNo chest pain, shortness of breath, dizziness, lightheadedness, syncope, palpitations or edema.No fever, chills or cough.Also reports increased anxiety and stress - with possible kidney cancer.Denies any thoughts of harming self or others.Compliant with medications.Denies alcohol, tobacco and illicit drug usage Rosalva Overton, FISH H[employer] SUPERINTENDENT [address], [place], [address], [place] - [facility] 12/01/2024 10:41:38 12/16/2024 text/html Lower Urinary Tr act Symptoms (LUTS)Reported bypatient.Associated Symptoms:no abdominal pain; no groin pain; no flank pain; no low back pain; no chills; no fever; no constipation; no diarrhea; no nausea; no vomiting; no temperaure; good force of stream; no post void dribbling; no hesitancy; empties well; no frequency; no dysuria; no incontinence; no nocturia; no urine odor; no gross hematuria; no hematospermia; no ejaculatory pain; no premature ejaculation; no penile pain; no penile curvature;straining( x1 year);urgency;abnorm al erection;decreased libido(improved)Note s:03/11/24- (10:30am) testo 15, freeT 0.3, psa 0.- testo 50, freeT 0.7, FSH/LH/prolactin- WNL, iron/tibc/ferritin WNL. cortisol WNL 04/12/24- US retro comp- per report- normal size kidneys bilat without stone, mass or hydronephrosis. theres a 2cm right simple renal cyst. the bladder empties to 11ml. there is no prostate enlargement seen. 07/16/24-CBC- rbc- 3.77, hgb 11.4, hct 33.3. creat 1.54. gfr 52. testo 27, freeT 0.3. 10/03/24- CBC stable. testo 992, psa 0.5 11/26/24- CBC- hgb 11.6, hct 36.4. testo 993. Pt comes from [facility] for lowT. cardio is Dr hudson, approved for him to start testo after his stents in april. 12/16/24follow up on low testosterone, BPH symptoms, EDwas dx with [place] and is using CPAP has been taking testo IM- reports held his last shot. has gained quite a bit of weight. since jul 2024 he has gained 9lbs. he was estimating 25lbs but we did review his weight history. he is still having issues with ED - got cialis - reports he still hasnt tried it. reports straining to void, getting worse, hesitancy. last apt gave trial of flomax. reports- this has improved but still not perfect. got labs- reviewed. Francoise Galeas, [employer] H[employer] SUPERINTENDENT [address], [place], [address], [place] - [facility] 12/16/2024 08:51:43 01/03/2025 text/html Presents for iss ues for edema to ankles for past several daysTook some of previous furosemide prescription with resolution of edemaFeeling wellNo orthopnea, SOBNo chest pain, dizziness, lightheadedness, syncope, palpitations or edema.No fever, chills or coughDenies alcohol, tobacco and illicit drug usage Rosalva Overton, FISH HATCHERY SUPERINTENDENT [address], [place], [address], [place] [facility] 01/03/2025 20:39:55 01/25/2025 text/html Lower Urinary Tr act Symptoms (LUTS)Reported bypatient.Associated Symptoms:no abdominal pain; no groin pain; no flank pain; no low back pain; no chills; no fever; no constipation; no diarrhea; no nausea; no vomiting; no temperaure; good force of stream; no post void dribbling; no hesitancy; empties well; no frequency; no dysuria; no incontinence; no nocturia; no urine odor; no gross hematuria; no hematospermia; no ejaculatory pain; no premature ejaculation; no penile pain; no penile curvature;straining( x1 year);urgency;abnorm al erection;decreased libido(improved)Note s:03/11/24- (10:30am) testo 15, freeT 0.3, psa 0.- testo 50, freeT 0.7, FSH/LH/prolactin- WNL, iron/tibc/ferritin WNL. cortisol WNL 04/12/24- US retro comp- per report- normal size kidneys bilat without stone, mass or hydronephrosis. theres a 2cm right simple renal cyst. the bladder empties to 11ml. there is no prostate enlargement seen. 07/16/24-CBC- rbc- 3.77, hgb 11.4, hct 33.3. creat 1.54. gfr 52. testo 27, freeT 0.3. 10/03/24- CBC stable. testo 992, psa 0.5 11/26/24- CBC- hgb 11.6, hct 36.4. testo 993. 12/16/24- estradiol 20.7 Pt comes from [facility] for lowT. cardio is Dr hudson, approved for him to start testo after his stents in april. 01/25/25follow up on low testosterone, BPH symptoms, EDwas dx with [place] and is using CPAP he is still having issues with ED - got cialis - reports he still hasnt tried it. reports voiding symptoms have improved with flomax but still not perfect. he has been having more back issues and states this is when his voiding symptoms get worse. got labs- reviewed. Francoise Galeas, FISH HATCH[employer] SUPERINTENDENT [address], [place], [address], [place] [facility] 01/26/2025 11:34:40 02/27/2025 text/html Presents for low testosterone levelFeeling wellNo chest pain, shortness of breath, dizziness, lightheadedness, syncope, palpitations or edema.No fever, chills or cough. Rosalva Overton, FISH HATCHERY SUPERINTENDENT [address], [place], [address], [place] [facility] 02/27/2025 08:49:23
--- OUTSIDE RECORDS SUMMARY | 2025-03-27 10:12 | XMS_ITS | Encounter Summary ---
Author Organization [facility] Address [address] [place] [address] Care Team Providers Care Janitorial Supervisor Name Role Phone Manjula Aleman NP Primary Care Provider Levon Hernandez MD Unavailable Jonathan Blank MD Unavailable [phone] Encounter Details Date Type Department Care Team (Late st Contact Info) Description 09/18/2021 Abstract [facility] Physicians - Vascular Surgery, [facility] [address] [phone] Molly Riley, PAULINO [address] [place] [address] Social History Tobacco Use Types Packs/Day Years [...] on file Sexual Orientation Not on file COVID-19 Exposure Response Date Recorded In the last month, have you been in contact with someone who was confirmed or suspected to have Coronavirus / COVID-19? Unable to assess 09/18/2021 12:41 PM EST documented as of this encounter Plan of Treatment Not on file documented as of this encounter Visit Diagnoses Not on filedocumented in this encounter Care Teams Janitorial Supervisor Relationship Specialty Start Date End Date Manjula Aleman NP [address] [place] [address] PCP - General Family Medicine 09/04/21 Levon Hernandez MD [address] [place] [id number] Orthopedic Surgery 09/17/21 Jonathan Blank MD [address] [place] [address] Vascular Surgery 09/19/21 documented as of this encounter
--- NOTE | 2025-03-27 10:23 | P.PCN_ITS ---
Procedure Date: 03/27/25 Time: 10:23 Anesthesiologist:: Laura Bishop APRN Complications:: None Pre-procedure Diagnosis:: Degenerative disc disease of lumbar spine with lumbar radiculopathy symptoms, chronic pain syndrome, acute kidney stones Post-procedure Diagnosis:: Same Indications for Procedure:: Patient is a pleasant 59-year-old male who presents today for pump adjustment. Today he rates his pain a 6 out of 10. He denies any new falls or injuries however does state the last 2 weeks he is been dealing with what he believes is kidney stones. He states he is going to the doctor later today for this. Patient does state that he has had plenty of these in the past with this being his 11th time at a [facility]. He states that some have passed on their own however other times he has had to have procedures done for the removal. Patient is currently managed with Dilaudid 3 mg/mL with a daily dose of 0.7014 mg/day. He denies any side effects. His Jesus has been reviewed and is appropriate. Physical Exam: General: Alert and oriented x3, no acute distress, pleasant and cooperative Lungs: Respirations even and unlabored, symmetrical chest expansion Eyes: PERRL Musculoskeletal: Flexion and extension of lumbar [spine] somewhat guarded secondary to pain, [antalgic gait noted] Neurological: Speech clear, no gross sensory deficit Procedure Details:: Informed consent was obtained and the risk and benefits of the procedure were e xplained to the patient. Patient did have noninvasive monitoring was placed including noninvasive blood pressure cuff and pulse oximeter. Patient's pump was interrogated and was reprogrammed to Dilaudid 0.7719 mg/day. The patient tolerated the procedure well with no complications. Plan and Disposition:: Patient tolerated the procedure well with no complications and was discharged neurologically intact. We will continue to monitor his progress with his kidney stones. Patient will return to clinic on or before their next intrathecal refill date. We will see the patient back in the clinic at the next intrathecal refill. Patient has been instructed to contact the clinic with any concerns before the next appointment. Dr. Dick has reviewed this note and agrees with this plan of care. This note was dictated using voice recognition software and make contain errors or omissions. -- It Is medically necessary for this patient to continue to have their intrathecal pump refilled at regular intervals. This patient had an intrathecal pain pump implanted after meeting criteria of chronic intractable pain for greater than 3 months and failing conservative treatments. Patient has committed and been compliant to the treatment plan and all planned follow up care. Since implantation of the intrathecal pain pump, the patient has had decreased pain and been more functional. Oral medications have been reduced including intake of oral opioids. Patient continues to do well with intrathecal therapy with decrease in pain symptoms and increase in functional status. Stopping intrathecal medications can lead to life threatening withdrawal, seizures, cardiac arrest, severe pain, and possible . Pumps that are not refilled at regular intervals can be damages and cause and need for replacement. We continually titrate dose and concentration to optimize pain relief and function. We are limited in concentration for certain drugs to safely deliver medications through the pump and stay within the recommendations from the Polyanalges[employer] Consensus Committee Guidelines. Depending on dose and concentration these pumps may need to be refilled sooner than 3 months as we titrate. A UDS is needed to verify patient's compliance with our office pain contract. This is ordered based off specific treatments related to chronic pain with the potential to abuse certain medications.
[2025-03-27 11:06] VITALS: BP 147/89; PULSE 72; RESP 18; O2SAT 99; BMI 32.6
== END 2025-03-27 23:59 | disposition home or self-care (01) ==
PROVIDERS: PCP Nurse Practitioner; Visit Provider Nurse Practitioner Family
DX: M51.16 Intervertebral disc disorders with radiculopathy, lumbar region (principal); G89.4 Chronic pain syndrome; N17.9 Acute kidney failure, unspecified
CPT/HCPCS: 62368; 99213; G0463

== ENCOUNTER 2025-05-05 09:15 | Day surgery (SDC) | payer OTHER, SELFPAY ==
[2025-05-05 09:35] VITALS: BP 161/96; PULSE 82; RESP 18; O2SAT 98; BMI 32.5
--- NOTE | 2025-05-05 09:37 | EXP.PM.HP ---
History of Present Illness *Admission Date: 05/05/25 *Reason for visit:: Intrathecal refill; DDD *History of present illness: Same [facility] Disclaimer: The information contained in this section may have been updated after the patient was seen, as this information can be updated by other users. Medical History History of varicose veins History of left heart catheterization Pulmonary nodule Aneurysmal dilatation Kidney stones Anxiety HLD (hyperlipidemia) GERD (gastroesophageal reflux disease) Depression CHF (congestive heart failure) Osteoarthritis HTN (hypertension) Surgical History H/O vasectomy H/O shoulder surgery H/O lithotripsy Hx of cholecystectomy History of bilateral knee replacement History of lumbar spinal fusion Family History Father Family history of cancer Other Diabetes Hypertension Social History Smoking Status: Former smoker alcohol intake: never substance use type: denies use current occupational status: employed Travel in the last 8 weeks?: None Have you lived/traveled outside [place] in past 30 days?: No Contact w/someone who lives/traveled outside [place] past 30 days?: No Exposure to someone with infectious disease in past 14 days?: No Do you have a fever (greater than 100.4 F or 38 C)?: No Have you tested positive for COVID-19?: No Exposed to someone with COVID-19 in past 14 days?: No Do you have a sore throat?: No Do you have a cough?: No Do you have any weakness?: No Do you have any diarrhea?: No Are you experiencing any unusual bleeding?: No Do you have any muscle aches/pain?: No Do you have any abdominal pain?: No Are you experiencing loss of taste or smell?: No Other Medical History Have you received the Flu Vaccine for this season: Yes Have you received the Pneumonia Vaccine: Yes Meds Home Medications and Allergies Home Medications ?Medication ?Instructions ?Recorded ?Confirmed ?Type buspirone 10 mg tablet 10 mg PO BID 10/19/23 05/05/25 History citalopram 40 mg tablet 40 mg PO DAILY 10/19/23 05/05/25 History diclofenac sodium 75 mg 75 mg PO BID 10/19/23 05/05/25 History tablet,delayed release gabapentin 600 mg tablet 600 mg PO TID 10/19/23 05/05/25 History lisinopril 20 mg tablet 20 mg PO DAILY 10/19/23 05/05/25 History omeprazole 40 mg capsule,delayed 40 mg PO DAILY 10/19/23 05/05/25 History release tamsulosin 0.4 mg capsule 0.4 mg PO DAILY #14 caps 11/27/23 05/05/25 Rx New Prescriptions to Start Prescriptions: Allergies Allergy/AdvReac Type Severity Reaction Status Date / Time amoxicillin AdvReac Other Verified 06/28/24 08:38 meloxicam AdvReac Rash Verified 06/28/24 08:38 Exam *Routine HEENT Exam Head: Present normocephalic and atraumatic Eye: Present PERRL ENT: Present mucous membranes moist *Routine Neck Exam Neck: Present supple *Routine Respiratory Exam Respiratory: Present CTA bilaterally *Routine Cardiovascular Exam Cardiovascular: Present RRR *Routine Abdominal Exam Abdominal: Present soft *Routine Rectal Exam Rectal:: deferred *Routine Genitalia Exam Genitalia:: deferred Routine Back/Spine/Pelvis Exam Back/Spine: Present pain with flexion *Routine Skin Exam Skin: Present intact and warm *Routine Neurological Exam Neurological: Present alert and oriented X3 Routine Psychiatric Exam Psychiatric: Present normal affect and normal thought process
--- NOTE | 2025-05-05 09:38 | EXP.PAIN.PRO ---
Procedure Date: 05/05/25 Time: 09:57 Anesthesiologist:: Laura Bishop APRN Complications:: None Pre-procedure Diagnosis:: Degenerative disc disease of lumbar spine with lumbar radiculopathy symptoms, chronic pain syndrome Post-procedure Diagnosis:: Same Indications for Procedure:: Patient is a pleasant 59-year-old male who presents today for intrathecal refill and reprogram. He rates his pain today at a 7 out of 10. He does state that they did end up doing a procedure for the kidney stones and that he did get a short dose of pain medication from that provider. Patient does state he is feeling better with yet but would like to see about a small increase in his pump. He denies any new trauma or injury. Patient is currently managed with Dilaudid 3 mg/mL with a daily dose of 0.7719 mg/day. He denies any side effects. His Jesus has been reviewed and is appropriate. Physical Exam: General: Alert and oriented x3, no acute distress, pleasant and cooperative Lungs: Respirations even and unlabored, symmetrical chest expansion Eyes: PERRL Musculoskeletal: Flexion and extension of lumbar [spine] somewhat guarded secondary to pain, [antalgic gait noted] Neurological: Speech clear, no gross sensory deficit Procedure Details:: Informed consent was obtained and the risk and benefits of the procedure were explained to the patient. The patient had noninvasive monitoring placed including noninvasive blood pressure cuff and pulse oximeter. Patient's pump was interrogated. The area over the pump was cleansed with chlorhexidine as a cleansing solution. In sterile fashion the pump was accessed with a 22-gauge needle. Approximately 5 mls of the pump solution was removed and discarded appropriately. The pump was then refilled with 20 mL's of Dilaudid 3 mg/mL. The needle was withdrawn and a bandage was placed over the puncture site. The infusion rate was reprogrammed and increased 10% to Dilaudid 0.8486 mg/day. The patient tolerated well with no complication. Plan and Disposition:: Patient tolerated the procedure well with no complications and was discharged neurologically intact. Patient will return to clinic on or before their next intrathecal refill date. We will see the patient back in the clinic at the next intrathecal refill. Patient has been instructed to contact the clinic with any concerns before the next appointment. Dr. Dick has reviewed this note and agrees with this plan of care. This note was dictated using voice recognition software and make contain errors or omissions. -- It Is medically necessary for this patient to continue to have their intrathecal pump refilled at regular intervals. This patient had an intrathecal pain pump implanted after meeting criteria of chronic intractable pain for greater than 3 months and failing conservative treatments. Patient has committed and been compliant to the treatment plan and all planned follow up care. Since implantation of the intrathecal pain pump, the patient has had decreased pain and been more functional. Oral medications have been reduced including intake of oral opioids. Patient continues to do well with intrathecal therapy with decrease in pain symptoms and increase in functional status. Stopping intrathecal medications can lead to life threatening withdrawal, seizures, cardiac arrest, severe pain, and possible . Pumps that are not refilled at regular intervals can be damages and cause and need for replacement. We continually titrate dose and concentration to optimize pain relief and function. We are limited in concentration for certain drugs to safely deliver medications through the pump and stay within the recommendations from the Polyanalges[employer] Consensus Committee Guidelines. Depending on dose and concentration these pumps may need to be refilled sooner than 3 months as we titrate. A UDS is needed to verify patient's compliance with our office pain contract. This is ordered based off specific treatments related to chronic pain with the potential to abuse certain medications.
[2025-05-05 09:52] VITALS: BP 170/107; PULSE 72; RESP 18; O2SAT 98
[2025-05-05 10:02] VITALS: BP 180/99; PULSE 70; RESP 16; O2SAT 99
== END 2025-05-05 10:02 | disposition home or self-care (01) ==
PROVIDERS: PCP Nurse Practitioner; Visit Provider Nurse Practitioner Family
DX: Z45.1 Encounter for adjustment and management of infusion pump (principal); M51.16 Intervertebral disc disorders with radiculopathy, lumbar region; G89.4 Chronic pain syndrome; F41.9 Anxiety disorder, unspecified; I11.0 Hypertensive heart disease with heart failure; I50.9 Heart failure, unspecified; F32.A Depression, unspecified; K21.9 Gastro-esophageal reflux disease without esophagitis; E78.5 Hyperlipidemia, unspecified; M19.90 Unspecified osteoarthritis, unspecified site; Z87.891 Personal history of nicotine dependence; Z88.1 Allergy status to other antibiotic agents; Z88.8 Allergy status to other drugs, medicaments and biological substances; Z79.899 Other long term (current) drug therapy
CPT/HCPCS: 62370